=== PATIENT | male | born 1960 | race Caucasian/White ===

== ENCOUNTER 2018-01-02 11:09 | Outpatient (RCR) | payer MEDICARE, MEDICAID, SELFPAY | END 2018-02-12 14:57 | disposition home or self-care (01) | LOC: PT 11:09 | PROVIDERS: Visit Provider Internal Medicine | DX: Z95.5 Presence of coronary angioplasty implant and graft (principal) | CPT/HCPCS: 93798 ==

== ENCOUNTER → 2018-01-03 11:04 | Outpatient (CLI) | payer MEDICARE, MEDICAID, SELFPAY ==
--- NOTE | 2018-01-03 11:11 | CT_ITS ---
CT angio chest HISTORY: Right anterior chest pain, pain on inspiration, dyspnea, cough, smoker ITS.REASON: dyspnea, cough, chest pain ORDERING PHYSICIAN: SAVAGE Grullon PATIENT AGE: 58 years TECHNIQUE: Axial images obtained following the administration of 75 mL of Isovue 370 . Sagittal, and coronal reformatted images are also generated and reviewed. All CT scans at the facility use one or more dose reduction, viz: automated exposure control; ma/kV adjustment per patient size (including targeted exams where dose is matched to indication; i.e. head); or iterative reconstruction technique. COMPARISON: 12/25/2017 FINDINGS: No mediastinal or hilar mass or adenopathy is evident. Coronary artery calcifications and/or stents are noted. There is no evidence of aortic aneurysm or dissection. There is mild tortuosity of the descending thoracic aorta. No evidence of pulmonary embolus. There are centrilobular emphysematous changes. There is a 5 mm noncalcified nodule in the right upper lobe anteriorly in the subpleural region. A calcified granulomas present in the right lower lobe. No effusions or infiltrates. No acute bony anomalies. Upper abdominal images are unremarkable. IMPRESSION: 1. Coronary artery calcifications consistent with coronary artery disease. 2. Centrilobular emphysema. 3. 5 mm noncalcified pulmonary nodule right upper lobe. Consider 6 month follow-up to confirm stability in this patient with history of smoking and with centrilobular emphysema
[2018-01-03 12:06] LABS: Anion Gap 11.6 mEq/L (5-15); Blood Urea Nitrogen 17 mg/dL (7-18); Carbon Dioxide 30 mmol/L (21.0-32.0); Chloride 108 mmol/L (98-107); Creatinine,Serum 0.94 mg/dL (0.70-1.30); Estimated Glomerular Filt Rate 82 ml/min (>60); GFR (African American) 99 ML/MIN (>60); Glucose 96 mg/dL (74-106); Potassium 4.6 mmoL/L (3.5-5.1); Sodium 145 mmol/L (136-145)
== END ==
PROVIDERS: Visit Provider Physician Assistant
DX: I25.10 Atherosclerotic heart disease of native coronary artery without angina pectoris (principal); R05 Cough; R06.00 Dyspnea, unspecified; R07.9 Chest pain, unspecified
CPT/HCPCS: 36415; 71275; 80048; Q9967

== ENCOUNTER → 2018-11-13 07:52 | Outpatient (CLI) | payer MEDICARE, MEDICAID, SELFPAY ==
--- NOTE | 2018-11-13 07:56 | CA_ITS ---
PROCEDURE: 2-D M-mode and color Doppler study INDICATIONS FOR THE TEST: Chest pain COPD+ Heart Murmur Tobacco Smoking+ Palpitations Fatigue Syncope Edema Hypertension+Diabetes Mellitus Rheumatic Fever SOB [place]+Obesity Hyperlipidemia+ Family History HD Additional History 65% EF on cath 12/26/17 PATIENT INFORMATION HEIGHT: 67 WEIGHT: 198 GENDER: Male B/P: 138/66 2-D/M-MODE INTERPRETATION: 2-D MEASUREMENTS OBSERVED VALUES IN CMS Right Ventricular Dimension (RVDd) 2.6 Interventricular Septum (Thickness)(IVsd) 1.1 Left Ventricular Internal Dimensions(LVIDd) 5.0 Left Ventricular Posterior Wall (Thickness)(LVPWd) 1.0 Aortic Root 2.9 Aortic Cusp Separation 2.1 Left Atrial Dimensions (LAD) 3.7 2D 1. The EKG is mildly enlarged, left ventricle is normal size, mild concentric left ventricular hypertrophy, visually estimated ejection fraction of 55% with no regional wall motion abnormality. 2. The right atrium and right ventricle are mildly enlarged with normal contractility. 3. The aortic valve is minimally thickened and fibrosed. 4. The mitral and tricuspid valvular grossly normal. 5. The pulmonic valve is poorly visualized. 6. No significant pericardial effusion noted. DOPPLER INTERROGATION: Doppler interrogation of the aortic, mitral and tricuspid valvular presence of mild mitral and tricuspid regurgitation, tricuspid regurgitation jet velocity is inadequate for calculation of the right ventricular systolic pressure, grade 1 diastolic dysfunction seen without tissue Doppler evidence of raised left atrial pressure. CONCLUSION: 1. Mildly enlarged left atrium, normal left ventricular size, mild concentric left ventricular hypertrophy, visually estimated ejection fraction of 55% with no regional wall motion abnormality, grade 1 diastolic dysfunction seen without tissue Doppler evidence of raised left atrial pressure. 2. Mildly enlarged right ventricle with normal contractility. 3. Mild mitral and tricuspid regurgitation 4. No significant pericardial effusion noted.
--- NOTE | 2018-11-13 08:01 | NM_ITS ---
NM narcisa perf SPECT rest str History and Indications: Procedure: Electrocardiogram: Cardiac stress and resting SPECT images: Conclusion: 1. CARDIOLITE SPECT MYOCARDIAL PERFUSION SCAN, REST AND STRESS: EXERCISE STRESS [facility] REVIEW QGS EF AND WALL MOTION EVALUATION: QPS - PERFUSION EVALUATION HISTORY: CHEST PAIN DOSE: 10.38 mCi technetium 99m mibi intravenously at rest followed by 31.8 mCi technetium 99m mibi following the intravenous ministration of 0.4 mg of Lexiscan. Resting blood pressure is 153/84. Stress blood pressure 194/98. FINDINGS: Ejection fraction is calculated to be 51% Stress images reveal decreased activity in the inferior apical and septal go while rest images reveal worsening activity in the inferior apical wall as well as worsening activity in the septum. Gated images calculated ejection fraction of 51%. Gated images calculated ejection fraction of 51% with normal wall motion IMPRESSION: Previous nontransmural myocardial infarction involving the inferior apical and septal go with reverse redistribution. There is a large amount of myocardium in jeopardy therefore this is a high risk abnormal Myoview accompanied by normal ejection fraction and normal wall motion
--- NOTE | 2018-11-13 13:24 | HMH.ITSHM ---
Current Home Medications as stated by this patient Lukasz Ray or service representative. []amlodpine asa bisoprolol
== END ==
PROVIDERS: PCP Family Medicine; Visit Provider Urology
DX: F17.200 Nicotine dependence, unspecified, uncomplicated; I10 Essential (primary) hypertension; I25.118 Atherosclerotic heart disease of native coronary artery with other forms of angina pectoris; J44.9 Chronic obstructive pulmonary disease, unspecified; R00.1 Bradycardia, unspecified; R06.02 Shortness of breath; Z01.818 Encounter for other preprocedural examination; E78.49 Other hyperlipidemia
CPT/HCPCS: 78452; 93017; 93306; A9502; J2785

== ENCOUNTER → 2019-12-11 12:09 | Outpatient (CLI) | payer MEDICARE, SELFPAY ==
--- NOTE | 2019-12-11 12:20 | MR_ITS ---
PROCEDURE: MR LUMBAR SPINE WO CON CLINICAL INDICATION: LOW BACK PAIN Low back pain, left leg pain and numbness COMPARISON: ESTIMATING MANAGER/O MRI-L-SPINE W/O from 01/07/2013 TECHNIQUE: Standard multiplanar multiecho sequences are performed without contrast. 3-D MIP and myelographic images are also rendered and reviewed FINDINGS: There is normal alignment. The spinal cord ends at the T12-L1 level. T11-T12: Mild degenerative disc disease. L1-L2: Mild degenerative disc disease. L2-L3: There is mild chronic wedging of L3 with mild loss of height anteriorly and mild kyphosis at that level. There is degenerative disc disease with bulging disc along with facet ligamentum hypertrophy with bilateral lateral recess and foraminal narrowing which appears similar when compared to the previous exam. There is minimal retrolisthesis of L2 of 3 mm. There is minimal central disc protrusion L3-L4: Degenerative disc disease with bulging disc and 2 mm retrolisthesis of L3. There is small broad-based right paracentral and foraminal and lateral disc protrusion with resultant right-sided lateral recess and foraminal narrowing. This has developed since the previous exam. There is 3 mm retrolisthesis of L4 L4-5: Bulging disc with 3 mm retrolisthesis of L4 with facet and ligamentum hypertrophy with moderate right and moderate to severe left-sided foraminal narrowing. These findings have slightly progressed from the previous exam. Previously noted disc herniation at L4-5 no longer apparent. Partial laminectomy suspected at L4-5 on the left. L5-S1: Degenerative disc disease with bulging disc with facet and ligamentum hypertrophy with moderate to severe bilateral foraminal narrowing. The foraminal narrowing appears somewhat worse than when compared to the previous exam. There is 3 mm retrolisthesis of L5. The spinal cord ends at the T12-L1 level. However, in the lower aspect of the spinal canal there appears to be some clumping of the nerve roots which may be seen with arachnoiditis. This is not significantly changed from the previous exam. IMPRESSION: 1. L2-L3: There is mild chronic wedging of L3 with mild loss of height anteriorly and mild kyphosis at that level. There is degenerative disc disease with bulging disc along with facet ligamentum hypertrophy with bilateral lateral recess and foraminal narrowing which appears similar when compared to the previous exam. There is minimal retrolisthesis of L2 of 3 mm. There is minimal central disc protrusion. 2. L3-L4: Degenerative disc disease with bulging disc and 2 mm retrolisthesis of L3. There is small broad-based right paracentral and foraminal and lateral disc protrusion with resultant right-sided lateral recess and foraminal narrowing. This has developed since the previous exam. There is 3 mm retrolisthesis of L4 3. L4-5: Bulging disc with 3 mm retrolisthesis of L4 with facet and ligamentum hypertrophy with moderate right and moderate to severe left-sided foraminal narrowing. These findings have slightly progressed from the previous exam. Previously noted disc herniation at L4-5 no longer apparent. Partial laminectomy suspected at L4-5 on the left. 4. L5-S1: Degenerative disc disease with bulging disc with facet and ligamentum hypertrophy with moderate to severe bilateral foraminal narrowing. The foraminal narrowing appears somewhat worse than when compared to the previous exam. There is 3 mm retrolisthesis of L5. 5. There is clumping of the nerve roots noted in the lower lumbar spine which does not appear significantly changed. Arachnoiditis is a consideration. 6. No evidence of extruded herniated disc or canal stenosis Dictated by: Bhavesh Serrato MD 12/12/2019 16:41 Electronically signed by Bhavesh Serrato MD in [place]
== END ==
PROVIDERS: PCP Family Medicine; Visit Provider Orthopaedic Surgery
DX: M54.5 Low back pain (principal)
CPT/HCPCS: 72148; 76376

== ENCOUNTER → 2019-12-16 10:19 | Outpatient (CLI) | payer MEDICARE, SELFPAY ==
--- NOTE | 2019-12-16 | US_ITS ---
APPROVED REPORT Exam Type: Ankle to Brachial Index Stave Machine Tender: Digna Lynn RT(R) Indications Claudication: Bilaterally Rest Pain: Bilaterally Numbness/Tingling Cold Sensitivity Current Smoker CAD 1 cardiac stent, patient states he can't walk much without stopping multiple times. Left foot is worse than right per patient. At the beginning of the exam both feet were normal in color and temperature. At long term point of exam the left foot was drastically colder. Risk Factors CAD TIA/CVA History Diabetes Current Smoker Pressures/Indices Right Indices Left Indices Brachial 134.00 mmHg Brachial 133.00 mmHg Low Thigh 134.00 mmHg 1.00 Low Thigh 119.00 mmHg 0.89 Calf 144.00 mmHg 1.07 Calf 105.00 mmHg 0.78 Ankle(PT) 129.00 mmHg 0.96 Ankle(PT) 125.00 mmHg 0.93 Ankle(DP) 127.00 mmHg 0.95 Ankle(DP) 97.00 mmHg 0.72 Digit 86.00 mmHg 0.64 Digit 71.00 mmHg 0.53 Findings RT SUMMER=1.0 LT SUMMER=0.9 RT TBI=0.6 LT TBI=0.5 Normal waveforms Diminished pulses on the left Conclusion Normal right SUMMER Acceptable left SUMMER Normal waveforms Diminished pulses on the left Electronically signed by : Bhavesh Serrato MD 12/16/2019 16:19:05
== END ==
PROVIDERS: PCP Family Medicine; Visit Provider Orthopaedic Surgery
DX: I73.9 Peripheral vascular disease, unspecified (principal)
CPT/HCPCS: 93923

== ENCOUNTER → 2019-12-30 13:30 | Outpatient (POV) | payer MEDICARE, SELFPAY | LOC: SC 13:35 | PROVIDERS: PCP Family Medicine; Visit Provider Specialist | DX: M79.605 Pain in left leg (principal); M79.604 Pain in right leg | CPT/HCPCS: 95886; 95909 ==

== ENCOUNTER 2020-01-13 09:02 | Day surgery (SDC) | payer MEDICARE, SELFPAY ==
[2020-01-13] VITALS (11 sets, daily range): BP systolic 98–151; BP diastolic 51–84; PULSE 39–50; RESP 16–18; TEMP 36.8; O2SAT 94–100; BMI 30.5
--- NOTE | 2020-01-13 | IR_ITS ---
APPROVED REPORT Patient Location: Outpatient PROCEDURES Catheter placement in the right common iliac artery Right common iliac artery antegrade angiogram with unilateral runoff to the right foot Catheter placement in the left common iliac artery Left common iliac artery antegrade angiogram with unilateral runoff to the left foot Catheter placement of the distal abdominal aorta Distal abdominal aortogram INDICATION [facility] class III claudication, Abnormal SUMMER Informed consent was obtained prior to the procedure. COMPLICATIONS NONE Estimated Blood Loss: LESS THAN 10 ML TECHNIQUE 1% lidocaine used to anesthetize the right anterior aspect of the right wrist. The right radial artery was accessed via the central technique and an arterial cocktail using 5000U heparin, 2.5 mg verapamil, 1mg lidocaine and 800mcg nitroglycerin into the right radial sheath intra-arterially. A PV multi curve catheter was then placed into the left common iliac artery via the right radial sheath and iliofemoral angiography was performed with unilateral runoff to the foot. Excellent angiographic results were obtained. At the end of the procedure the apparatus was removed the sheath was removed good hemostasis was achieved using TR banding patient was transferred to the postop holding area in stable condition. ANGIOGRAPHIC RESULTS The distal abdominal aorta is normal The bilateral common internal and external iliac arteries are normal The bilateral common femoral arteries are normal The bilateral profunda femoris arteries are normal The right superficial femoral artery and popliteal artery have mild [id number] atheromatous plaque with three-vessel runoff below the knee into the foot The left superficial femoral artery has a focal 80 to 90% stenosis in Cory's canal between the left SFA and left popliteal artery. There is mild atheromatous plaque distal to the stenosis which is [id number]. There is good two-vessel runoff below the knee on the left side IMPRESSION Moderate to severe focal stenosis involving the left SFA/popliteal artery. Bilateral leg symptoms are not explained angiographically. PLAN 1. At this point I recommend medical management for the left SFA lesion. Patient appears to be having bilateral symptoms most likely stemming from myalgias from atorvastatin or possibly restless leg syndrome. Atorvastatin will be discontinued and Requip 2 mg nightly will be started for restless leg syndrome 2. Medical management for the left SFA lesion. Should patient develop recalcitrant claudication in the future this would be an easy drug-coated balloon procedure in order to improve circulation. Again at this point, it appears patient symptoms are nonvascular based on the bilateral symptoms Electronically signed by : Hugo Still, 01/13/2020 12:07:06
[2020-01-13 09:48] LABS: Basophils % 0.3 % (0.1-2.0); Eosinophils # 0.1 K/mm3 (0.0-0.4); Eosinophils % 1.5 % (0.1-12.0); Hematocrit 40.9 % (42.0-52.0); Lymphocytes # 2.8 K/mm3 (0.7-4.5); Mean Corpuscular HGB Conc 31.7 g/dL (31.8-35.4); Mean Corpuscular Hemoglobin 26.4 pg (27.0-31.2); Mean Corpuscular Volume 83.3 fl (80-94); Mean Platelet Volume 7.3 fl (7.4-10.4); Monocytes # 0.4 K/mm3 (0.1-1.0); Monocytes % 5.3 % (1.7-9.3); Platelet Count 236 K/mm3 (142-424); Red Blood Count 4.91 M/mm3 (4.60-6.20); Red Cell Distribution Width 15.4 % (11.5-17.5); White Blood Count 7.3 K/mm3 (4.8-10.8)
[2020-01-13 09:58] LABS: Anion Gap 6.3 mEq/L (5-15); Blood Urea Nitrogen 20 mg/dl (9-20); Calcium 9.2 mg/dl (8.4-10.2); Carbon Dioxide 27 mmol/L (22.0-30.0); Chloride 107 mmol/L (98-107); Creatinine Clearance Estimated 96 mL/min (50-200); Estimated Glomerular Filt Rate 86 ml/min (>60); GFR (African American) 103 ML/MIN (>60); Glucose 109 mg/dl (74-100); Potassium 4.3 mmoL/L (3.5-5.1); Sodium 136 mmol/L (136-145)
== END 2020-01-13 14:07 | disposition home or self-care (01) ==
LOC: CATHLAB 09:04
PROVIDERS: PCP Family Medicine; Visit Provider Internal Medicine
DX: I70.223 Atherosclerosis of native arteries of extremities with rest pain, bilateral legs (principal); I25.118 Atherosclerotic heart disease of native coronary artery with other forms of angina pectoris; Z79.02 Long term (current) use of antithrombotics/antiplatelets; Z79.82 Long term (current) use of aspirin; Z72.0 Tobacco use; J44.9 Chronic obstructive pulmonary disease, unspecified; I10 Essential (primary) hypertension; Z79.899 Other long term (current) drug therapy; I77.1 Stricture of artery
CPT/HCPCS: 36247; 75716; 80048; 85025; 99152; C1725; C1769; J1644; Q9966

== ENCOUNTER 2020-01-24 08:00 | Day surgery (SDC) | payer MEDICARE, SELFPAY ==
[2020-01-24] VITALS (11 sets, daily range): BP systolic 108–164; BP diastolic 66–90; PULSE 54–66; RESP 12–20; TEMP 36.6; O2SAT 93–98; BMI 29.7
--- NOTE | 2020-01-24 | IR_ITS ---
APPROVED REPORT Patient Location: Outpatient PROCEDURES Catheter placement in the left superficial femoral artery Left superficial femoral artery antegrade angiogram Bare-metal stent deployment to the left superficial femoral artery INDICATION Ghassan class III claudication, Left superficial femoral artery atherosclerosis, Abnormal SUMMER Informed consent was obtained prior to the procedure. COMPLICATIONS NONE Estimated Blood Loss: LESS THAN 10 ML TECHNIQUE 1% lidocaine used anesthetize the right groin the right femoral artery was accessed via the Salinger technique and a 6 Persian sheath was placed in the right femoral artery. Therapeutic heparin was administered giving a therapeutic ACT. A rim catheter was advanced to the distal abdominal aorta and used to cannulate the left common iliac artery. A wire was used to advance the catheter into the left superficial femoral artery where angiography was performed. And a long advantage wire was used to traverse the stenosis of the left superficial femoral artery and a 7 mm x 20 mm self-expanding stent was deployed in the left SFA. A 6 mm x 20 mm balloon was used to post dilate the stenosis at 12 suad. Excellent angiographic results were obtained. At the end of the procedure the apparatus was removed the groin was reprepped gloves were changed sheath was removed good hemostasis was achieved using Perclose device patient was transferred to the postop holding in stable condition ANGIOGRAPHIC RESULTS Left superficial femoral artery has a focal 90% stenosis IMPRESSION Successful percutaneous revascularization of left superficial femoral artery severe stenosis reduced to 0% with one bare-metal self-expanding stent PLAN 1. Aspirin and Plavix for 1 month followed by Xarelto 2.5 twice daily plus aspirin 81 mg daily 2. Physical therapy 3. LDL less than 55 4. Aggressive risk factor modification Electronically signed by : Hugo Still, 01/24/2020 10:43:39
[2020-01-24 08:56] LABS: Basophils # 0.1 K/mm3 (0-0.2); Basophils % 0.6 % (0.1-2.0); Eosinophils # 0.1 K/mm3 (0.0-0.4); Eosinophils % 0.9 % (0.1-12.0); Hematocrit 44.9 % (42.0-52.0); Hemoglobin 14.2 g/dL (14.1-18.0); Lymphocytes # 3.1 K/mm3 (0.7-4.5); Mean Corpuscular HGB Conc 31.6 g/dL (31.8-35.4); Mean Corpuscular Volume 85.6 fl (80-94); Mean Platelet Volume 6.8 fl (7.4-10.4); Monocytes # 0.4 K/mm3 (0.1-1.0); Monocytes % 4.4 % (1.7-9.3); Neutrophils % 58.1 % (37.0-80.0); Platelet Count 229 K/mm3 (142-424); Red Blood Count 5.24 M/mm3 (4.60-6.20); White Blood Count 8.6 K/mm3 (4.8-10.8)
[2020-01-24 09:06] LABS: Anion Gap 9.4 mEq/L (5-15); Blood Urea Nitrogen 17 mg/dl (9-20); Calcium 9.4 mg/dl (8.4-10.2); Carbon Dioxide 29 mmol/L (22.0-30.0); Chloride 103 mmol/L (98-107); Creatinine Clearance Estimated 93 mL/min (50-200); Estimated Glomerular Filt Rate 86 ml/min (>60); GFR (African American) 103 ML/MIN (>60); Glucose 97 mg/dl (74-100); Potassium 4.4 mmoL/L (3.5-5.1); Sodium 137 mmol/L (136-145)
[2020-01-24 13:33] LABS: CATHL Activated Clotting Time 270 SEC (74-125)
== END 2020-01-24 13:37 | disposition home or self-care (01) ==
LOC: CATHLAB 08:01
PROVIDERS: PCP Family Medicine; Visit Provider Internal Medicine
DX: I70.222 Atherosclerosis of native arteries of extremities with rest pain, left leg (principal); I25.10 Atherosclerotic heart disease of native coronary artery without angina pectoris; I10 Essential (primary) hypertension; Z72.0 Tobacco use; Z79.899 Other long term (current) drug therapy
CPT/HCPCS: 37226; 80048; 85025; 85347; 99152; C1725; C1760; C1766; C1769; C1876; J1644; Q9966

== ENCOUNTER → 2020-01-27 10:51 | Outpatient (CLI) | payer MEDICARE, SELFPAY ==
[2020-01-27 11:07] LABS: Basophils # 0.1 K/mm3 (0-0.2); Basophils % 0.7 % (0.1-2.0); Eosinophils # 0.1 K/mm3 (0.0-0.4); Eosinophils % 1.1 % (0.1-12.0); Hematocrit 42.8 % (42.0-52.0); Hemoglobin 13.9 g/dL (14.1-18.0); Lymphocytes # 3.2 K/mm3 (0.7-4.5); Lymphocytes % 32.1 % (10-50); Mean Corpuscular HGB Conc 32.4 g/dL (31.8-35.4); Mean Corpuscular Hemoglobin 27.9 pg (27.0-31.2); Monocytes # 0.4 K/mm3 (0.1-1.0); Monocytes % 4.1 % (1.7-9.3); Neutrophils # 6.1 K/mm3 (1.8-7.8); Platelet Count 229 K/mm3 (142-424); Red Blood Count 4.98 M/mm3 (4.60-6.20); Red Cell Distribution Width 14.9 % (11.5-17.5); White Blood Count 9.9 K/mm3 (4.8-10.8)
[2020-01-27 11:18] LABS: Anion Gap 9.2 mEq/L (5-15); Blood Urea Nitrogen 18 mg/dl (9-20); Calcium 9.5 mg/dl (8.4-10.2); Carbon Dioxide 29 mmol/L (22.0-30.0); Chloride 103 mmol/L (98-107); Estimated Glomerular Filt Rate 68 ml/min (>60); GFR (African American) 82 ML/MIN (>60); Glucose 128 mg/dl (74-100); Potassium 4.2 mmoL/L (3.5-5.1); Sodium 137 mmol/L (136-145)
== END ==
PROVIDERS: Visit Provider Internal Medicine
DX: Z95.5 Presence of coronary angioplasty implant and graft (principal); I25.10 Atherosclerotic heart disease of native coronary artery without angina pectoris
CPT/HCPCS: 36415; 80048; 85025

== ENCOUNTER → 2021-07-12 14:30 | Outpatient (CLI) | payer MEDICARE, SELFPAY | PROVIDERS: Visit Provider Nurse Practitioner | DX: Z20.822 Contact with and (suspected) exposure to COVID-19 (principal) | CPT/HCPCS: C9803; U0003; U0005 ==

== ENCOUNTER → 2021-10-14 10:16 | Outpatient (CLI) | payer MEDICARE, SELFPAY ==
--- NOTE | 2021-10-14 10:57 | XR_ITS ---
FINAL REPORT CLINICAL HISTORY: typical angina smoker COMPARISON: 12/25/2017 FINDINGS: Two views of the chest were obtained. The heart size and pulmonary vascularity are within normal limits. The mediastinum is normal. No acute pulmonary abnormality is identified. There is no pneumothorax. The bony thorax is intact. IMPRESSION: No active cardiopulmonary disease. Reviewed, Interpreted and Dictated by Chaim Powers III, MD Transcribed by Saadia Gutierrez Authenticated by Chaim Powers III, MD on 10/14/2021 12:15:22 PM [facility]
[2021-10-14 11:29] LABS: Basophils # 0.1 K/mm3 (0-0.2); Basophils % 0.7 % (0.1-2.0); Eosinophils # 0.1 K/mm3 (0.0-0.4); Eosinophils % 1.4 % (0.1-12.0); Hematocrit 44.1 % (42.0-52.0); Hemoglobin 13.8 g/dL (14.1-18.0); Lymphocytes # 2.5 K/mm3 (0.7-4.5); Lymphocytes % 34.8 % (10-50); Mean Corpuscular HGB Conc 31.3 g/dL (31.8-35.4); Mean Corpuscular Hemoglobin 27.1 pg (27.0-31.2); Mean Corpuscular Volume 86.6 fl (80-94); Mean Platelet Volume 6.9 fl (7.4-10.4); Monocytes # 0.4 K/mm3 (0.1-1.0); Monocytes % 5.5 % (1.7-9.3); Neutrophils # 4.1 K/mm3 (1.8-7.8); Neutrophils % 57.6 % (37.0-80.0); Platelet Count 215 K/mm3 (142-424); Red Blood Count 5.09 M/mm3 (4.60-6.20); Red Cell Distribution Width 14.8 % (11.5-17.5); White Blood Count 7.1 K/mm3 (4.8-10.8)
[2021-10-14 11:55] LABS: Chloride 104 mmol/L (98-107); Sodium 136 mmol/L (136-145)
[2021-10-14 11:56] LABS: Potassium 4.6 mmoL/L (3.5-5.1)
[2021-10-14 11:58] LABS: Alanine Aminotransferase 29 U/L (12-78); Albumin Level 4.3 g/dl (3.5-5.0); Alkaline Phosphatase 62 U/L (38-126); Anion Gap 7.6 mEq/L (5-15); Aspartate Amino Transferase 41 U/L (17-59); Bilirubin,Direct 0.3 mg/dl (0.0-0.4); Bilirubin,Indirect 0.1 mg/dL (0.0-0.9); Bilirubin,Total 0.4 mg/dl (0.2-1.3); Bilirubin,Unconjugated 0.1 mg/dL (0.0-1.1); Blood Urea Nitrogen 25 mg/dl (9-20); Carbon Dioxide 29 mmol/L (22.0-30.0); Cholesterol 149 mg/dl (140-200); Estimated Glomerular Filt Rate 85 ml/min (>60); GFR (African American) 103 ML/MIN (>60); Total Protein,Serum 6.7 g/dl (6.3-8.2); Triglycerides 99 mg/dl (30-150); VLDL Cholesterol 20 mg/dL (0-40)
[2021-10-14 11:59] LABS: Calcium 8.5 mg/dl (8.4-10.2); Chol/HDL Ratio 3.8 (1-3.5); Glucose 99 mg/dl (74-100); HDL Cholesterol 39 mg/dl (40-60)
[2021-10-14 12:10] LABS: Direct LDL Cholesterol 79.47 mg/dL (100-129)
[2021-10-14 12:15] LABS: Free T4 (Free Thyroxine) 1.31 ng/dl (0.78-2.19)
[2021-10-14 12:29] LABS: Thyroid Stimulating Hormone 3.25 uIU/mL (0.465-4.68)
== END ==
PROVIDERS: PCP Plastic Surgery; Visit Provider Physician Assistant
DX: E78.2 Mixed hyperlipidemia (principal); F17.200 Nicotine dependence, unspecified, uncomplicated; I11.9 Hypertensive heart disease without heart failure; I20.9 Angina pectoris, unspecified; I73.9 Peripheral vascular disease, unspecified; R68.89 Other general symptoms and signs
CPT/HCPCS: 36415; 71046; 80048; 80061; 80076; 84439; 84443; 85025

== ENCOUNTER → 2023-02-06 08:15 | Outpatient (CLI) | payer MEDICARE, SELFPAY ==
--- NOTE | 2023-02-06 08:22 | CT_ITS ---
FINAL REPORT CLINICAL HISTORY: H/O TOBACCO USE CURRENT SMOKER 1.5PPD X50 YEARS COMPARISON: None FINDINGS: CT CHEST LOW DOSE SCREENING HISTORY: Screening exam for lung cancer. Current smoker, 75 pack year smoking history DOSE: CTDIvol: 2.9 mGy, DLP: 100.29 mGy*cm COMPARISON: None . TECHNIQUE: Axial CT without IV contrast administration using low dose protocol FINDINGS: Mild emphysema and mild scarring are present. There are small nonspecific mediastinal lymph nodes present as well as several borderline size axillary nodes present. No evidence of significant adenopathy is seen. There is a calcified granuloma present in the right lower lobe. There is a 4 mm nodule seen on axial image number 20 and the right upper lobe, nonspecific. No pleural or pericardial effusion is seen . . IMPRESSION: 4 mm nodule seen in the right upper lobe, nonspecific. LUNG RADS CATEGORY 2. Recommend 12 month follow-up exam RECOMMENDATION: 12 month LDCT follow up Reviewed, Interpreted and Dictated by Chaim Powers III, MD Transcribed by Amber Blackwood Authenticated and . [facility]
== END ==
PROVIDERS: PCP Family Medicine; Visit Provider Family Medicine
DX: Z87.891 Personal history of nicotine dependence (principal); Z12.2 Encounter for screening for malignant neoplasm of respiratory organs; R91.1 Solitary pulmonary nodule
CPT/HCPCS: 71271

== ENCOUNTER 2023-07-03 12:50 | Emergency (ER) | payer MEDICARE, SELFPAY ==
[2023-07-03 12:50] VITALS: BP 150/71; PULSE 86; RESP 18; TEMP 36.8; O2SAT 96; BMI 28.1
--- NOTE | 2023-07-03 13:22 | PC.NURSE ---
DR FRANCO AT BEDSIDE
--- NOTE | 2023-07-03 13:28 | XR_ITS ---
FINAL REPORT CLINICAL HISTORY: pain when standing up, calf tender FINDINGS: AP and lateral views of the right tibia and fibula were obtained. There is no prior exam for comparison. There is no acute fracture of the left tibia or fibula. The knee and ankle appear intact. The soft tissues are normal. IMPRESSION: No acute osseous abnormality of the left tibia or fibula. Reviewed, Interpreted and Dictated by Samreen Daiman MD Transcribed by Fauzia Montesinos Authenticated and [facility]
--- NOTE | 2023-07-03 13:31 | HMH.EDGENADL ---
Discharge Plan Disposition Patient Disposition: Home, Self-Care Chief Complaint: Extremity Problem,Nontraumatic Prescriptions Prescriptions: No Action clopidogrel [Plavix] 75 mg tablet 75 mg PO DAILY Qty: 30 5RF amlodipine [Norvasc] 10 mg tablet 10 mg PO DAILY Qty: 90 3RF aspirin [Adult Low Dose Aspirin] 81 mg tablet,delayed release (DR/EC) 81 mg PO DAILY bisoprolol fumarate 5 mg tablet 10 mg PO DAILY buprenorphine-naloxone 1 EACH film 1 each SL DAILY Referrals Follow up/Referrals: David Pruett [Primary Care Provider] - See instructions Activity Restrictions/Add. Instructions Additional Instructions/Restrictions: At this time it was felt you are safe to be discharged home. If new or worsening symptoms please do not hesitate to return the emergency department. Please follow-up with Dr. Guerrero this at 3 PM. Clinical Impressions Clinical Impression: Calf pain Discharge ED Provider: Rios Camargo General Adult HPI General Chief complaint: Extremity Problem,Nontraumatic Stated complaint: pain in Rt leg, no accident Time Seen by Provider: 07/03/23 13:00 Mode of Arrival: Wheelchair Source of Information: Patient Limitations: No Limitations Description of Symptoms (Recalled from ER Triage Doc. by RN): PT REPORTS PAIN TO RIGHT CALF, WAS GOING FROM SQUATTING TO STANDING POSITION AND FELT A TEARING REPORTS CALF FEELS TIGHT, NO REDNESS OR SWELLING. History of Present Illness HPI narrative: Patient is 63-year-old male with no pertinent past medical history presents emergency department for evaluation of posterior calf pain. Onset was acute, standing from a kneeling position. Sudden stabbing pain over his posterior mid calf. No direct falls or impact. No other acute complaints at this time. Related Data Home Medications Medication Instructions Recorded Confirmed buprenorphine 8 mg-naloxone 2 mg 1 each SL DAILY drug treatment 12/25/17 10/14/21 sublingual film aspirin 81 mg tablet,delayed 81 mg PO DAILY 01/03/18 10/14/21 release (Adult Low Dose Aspirin) bisoprolol fumarate 5 mg tablet 10 mg PO DAILY 01/06/20 10/14/21 Previous Rx's Medication Instructions Recorded clopidogrel 75 mg tablet (Plavix) 75 mg PO DAILY #30 tabs 11/05/18 amlodipine 10 mg tablet (Norvasc) 10 mg PO DAILY #90 tabs 10/14/21 Allergies Allergy/AdvReac Type Severity Reaction Status Date / Time No Known Allergies Allergy Verified 01/28/20 11:27 [facility] Disclaimer: The information contained in this section may have been updated after the patient was seen, as this information can be updated by other users. Medical History (Updated 07/03/23 @ 14:36 by Rios Camargo MD) CAD (coronary artery disease) HHD (hypertensive heart disease) Social History Smoking Status: Current every day smoker tobacco type: cigarettes packs per day: 1 alcohol intake: never substance use type: denies use current occupational status: unemployed Travel in the last 8 weeks: None household members: none housing: house current occupational exposures/hazards: Yes caffeine: No ROS Obtained: Yes Systems reviewed as appropriate & no additional complaints except as documented Physical Exam General General appearance: alert and in no apparent distress Head Head exam: atraumatic and normocephalic Eye Eye exam: Present PERRL and EOMI ENT ENT exam: Present mucous membranes moist Neck Neck exam: Present normal inspection Chest Chest inspection: Present normal inspection and symmetric chest wall rise Respiratory Respiratory exam: Present normal lung sounds bilaterally; Absent respiratory distress Cardiovascular Cardiovascular exam: Present regular rate and normal rhythm Abdominal Exam Abdominal exam: Present soft; Absent tenderness Extremities Exam Extremities exam: Present other (Palpable dorsal pedal pulse on the right, no bony tenderness on the right lower extremity. Mild asymme
--- NOTE | 2023-07-03 13:33 | PC.NURSE ---
ORTHO APPT 07/06/2023 AT 3:00
[2023-07-03 15:05] VITALS: BP 148/70; PULSE 85; RESP 20; TEMP 36.8; O2SAT 98
== END 2023-07-03 15:08 | disposition home or self-care (01) ==
PROVIDERS: Emergency Provider Emergency Medicine; PCP Family Medicine
DX: M79.661 Pain in right lower leg (principal); F17.210 Nicotine dependence, cigarettes, uncomplicated; I25.10 Atherosclerotic heart disease of native coronary artery without angina pectoris; I11.9 Hypertensive heart disease without heart failure
CPT/HCPCS: 73590; 99283

== ENCOUNTER 2024-04-22 06:35 | Outpatient (CLI) | payer MEDICARE, MEDICAID, SELFPAY ==
--- NOTE | 2024-04-22 | CA_ITS ---
APPROVED REPORT Exam: Exercise Treadmill Technologist: Linda Mccarthy Ht: 5 ft 7 in Wt: 198 lbs BSA: 2.01 m2 HR: 56 bpm BP: 126/68 mmHg Indications: CAD, Angina Pectoris Medical History Medications: Amlodipine,,,,, Aspirin,,,,, SyMBICORT,,,,, CloPIdogrel,,,,, Suboxone,,,,, BisOPROLOL,,,,, Ventolin,,,,, Stress Test Details Test: Butch HR Resting HR: 58 bpm Max Heart Rate (APMHR): 154 bpm Max HR Achieved: 100 bpm Target HR (85% APMHR): 131 bpm % of APMHR: 65 Recovery HR: 57 bpm HR response to stress: Blunted HR response to stress BP Resting BP: 126.0/68.0 mmHg Max BP: 184.0/82.0 mmHg Recovery BP: 151.0/73.0 mmHg BP response to stress: Normal blood pressure response to stress. ECG Resting ECG: Normal sinus rhythm Stress EC.[address] depression Arrhythmia: None Recovery ECG: Return to baseline within 3 minutes of recovery Recovery Arrhythmia: PVCs Clinical Exercise duration: 03:56 min Highest Stage Achieved: Exercise capacity: 7.0 METs Overall Exercise Capacity for Age: Average Stress ECG Conclusion This is a nondiagnostic treadmill stress test in the setting of inability to achieve target HR. Symptoms: Shortness of breath with exercise. Test stopped due to shortness of breath and leg fatigue. Left arm pain at peak exercise. Arrhythmias/Ectopy: PVC in recovery. ST-T Changes: <0.[address] depression Conclusion: Non diagnostic as he did not reach target heart rate. No evidence of ischemia at the level of HR achieved. In the setting of inability to achieve target HR, further evaluation with alternative ischemic evaluation (e.g. pharmacologic nuclear stress test) is recommended, if clinically feasible. Test Summary REST . . . . . . . Sitting REST . . . . . . . Standing REST 08:31 0.0 0.0 58 . 126/ 68 . . Stage 1 01:00 10.0 1.7 82 . . . . Stage 1 02:00 10.0 1.7 87 . . . . Stage 1 03:00 10.0 1.7 88 . 150/ 78 . . Stage 2 00:56 12.0 2.5 99 . . . Stop exercise at 03:56 RECOVERY 01:00 0.0 0.0 80 . 184/ 82 . . RECOVERY 02:00 0.0 0.0 68 . 184/ 82 . . RECOVERY 03:00 0.0 0.0 59 . 184/ 82 . . RECOVERY 04:00 0.0 0.0 62 . 160/ 67 . . RECOVERY 05:00 0.0 0.0 57 . 151/ 73 . . RECOVERY 05:14 0.0 0.0 61 . 151/ 73 . . Electronically signed by : Anya Garvey MD 04/29/2024 23:09:56
--- NOTE | 2024-04-22 06:50 | CT_ITS ---
FINAL REPORT TECHNIQUE: Thin section axial images were obtained from the lung apices to the upper abdomen by computed tomography. Reformatted images were obtained and reviewed. This study was performed with techniques to keep radiation doses al low as reasonably achievable (ALARA). Individualized dose reduction techniques using automated exposure control or adjustment of mA and/or kV according to the patient's size were employed. CLINICAL HISTORY: CAD/ANGINA PECTORIS/LUNG NODULE CURRENT SMOKER 1.5PPD X51 YEARS COMPARISON: 02/06/2023 FINDINGS: CHEST CT LOW DOSE 64-year-old male, current smoker, 73-ponb-dphm history CTDI vol (mGy): 2.9 DLP (mGy-cm): 100.29 There is no axillary adenopathy. There is no mediastinal or hilar mass or adenopathy. The heart is normal in size. Dense coronary artery calcifications are present. There is no pericardial or pleural effusion. Lung window images demonstrate the 4 mm nodule in the right upper lobe seen on the prior CT of January 2023 remains present and is stable in appearance. On today's exam this is best seen on image #22 of series 4.. Limited images of the upper abdomen are unremarkable. IMPRESSION: Lung-RADS category 2S, the S designation for dense coronary artery calcification. Recommend 12 month follow up low dose chest CT. Reviewed, Interpreted and Dictated by Jaxon Mane MD Transcribed by Amber Blackwood Authenticated and [facility]
== END 2024-04-22 23:59 | disposition home or self-care (01) ==
LOC: RAD 06:36
PROVIDERS: PCP Family Medicine; Visit Provider Family Medicine
DX: Z87.891 Personal history of nicotine dependence (principal); I25.119 Atherosclerotic heart disease of native coronary artery with unspecified angina pectoris; R07.9 Chest pain, unspecified; R06.09 Other forms of dyspnea
CPT/HCPCS: 71271; 93017; 93018

== ENCOUNTER 2024-11-01 07:34 | Outpatient (CLI) | payer MEDICARE, MEDICAID, SELFPAY ==
--- NOTE | 2024-11-01 | MR_ITS ---
FINAL REPORT TECHNIQUE: Multiplanar MR without contrast CLINICAL HISTORY: neck pain and stiffness that radiates to the shoulders FINDINGS: Limited images of the posterior fossa are unremarkable. Alignment is normal. Cervical spinal cord shows normal signal and contour. C2-3: Minimal annular disc bulge. C3-4: Moderate annular disc bulge with endplate hypertrophy. Moderate facet overgrowth. Moderate central canal stenosis. Severe left and moderate right neuroforaminal narrowing. C4-5: Mild annular disc bulge and facet arthropathy. Severe left and mild right neuroforaminal narrowing. C5-6: Mild annular disc bulge. Moderate bilateral neuroforaminal narrowing without central canal stenosis. C6-7: Annular disc bulge without canal stenosis. C7-T1: Unremarkable IMPRESSION: Moderate degenerative changes, most pronounced at C3-4 and C4-5. Reviewed, Interpreted and Dictated by Suman Jensen MD Transcribed by Saadia Gutierrez Authenticated and . [facility]
== END 2024-11-01 23:59 | disposition home or self-care (01) ==
LOC: RAD 07:35
PROVIDERS: PCP Family Medicine; Visit Provider Family Medicine
DX: M54.2 Cervicalgia (principal); M79.609 Pain in unspecified limb; R20.2 Paresthesia of skin
CPT/HCPCS: 72141

== ENCOUNTER 2025-03-03 08:18 | Outpatient (CLI) | payer MEDICARE, MEDICAID, SELFPAY ==
--- OUTSIDE RECORDS SUMMARY | 2025-01-13 13:35 | XMS_ITS | Continuity of Care Document ---
Author Organization [facility] Phone Care Team Providers Care Poolroom Table Attendant Name Role Phone KARL AGUILA Primary Care MELVA CHAWLA Primary Attending [phone] MELVA CHAWLA Surgeon MELVA CHAWLA Unavailable MELVA CHAWLA Admitting ALLERGIES AND ADVERSE REACTIONS ALLERGIES AND ADVERSE REACTIONS Code System Allergy Substance Adverse Reaction Date Reaction (Severity) Comment Status Reported By Updated By No Known Allergies [id number] on December 31, 2024 1:59:11 PM UT ASSESSMENTS Cervical spondylosis without myelopathy ; FAMILY HISTORY RELATION: Father Status: Cause of : Malignant neoplastic disease Age at : Unknown SNOMED-CT Diagnosis Age At Onset Information not available RELATION: Mother Status: LIVING SNOMED-CT Diagnosis Age At Onset Information not available PROBLEMS PATIENT PROBLEMS Code Description/Comments Category Status Upda tiffanie By [id number] Cervical spondylosis without myelopathy active [id number] on December 31 2:01:48 PM UT MEDICATIONS HOME MEDICATIONS Status RXNORM [facility] Medication Dose Route Frequency Dates Comments Reported By Updated By Active 0858605 29935 38361 8 Albuterol Sulfate HFA Inhalation Aerosol Solution 108 (90 Base) MCG/ACT 2.0 PUF INHALA TION RTBIDPRN Last Dose: [id number] on December 31, 2024 1:59:31 PM UT Active 730667 22242 08546 0 Atorvastatin Calcium Oral Tablet 40 MG 40.0 MG ORAL DAILY Last Dose: [id number] on December 31, 2024 1:59:34 PM UT Active 156500 90105 09465 1 bisoprolol (ZEBETA) 5.0 MG ORAL DAILY Last Dose: PHYSICI [id number] on December 31, 2024 1:59:37 PM UT Active 7892909 51164 84393 1 Buprenorphin e HCl-Naloxone HCl Sublingual Film 8-2 MG 1.5 FLS SUBLIN GUAL DAILY Last Dose: [id number] on December 31, 2024 1:59:41 PM [facility] Active 586052 99354 80168 0 buPROPion HCl ER (SR) Oral Tablet Extended Release 12 Hour 150 MG 150.0 MG ORAL DAILY Last Dose: [id number] on December 31, 2024 1:59:45 PM [facility] Active 718721 70734 82892 9 Cyclobenzapr ine HCl Oral Tablet 10 MG 10.0 MG ORAL PRN Last Dose: [id number] on December 31, 2024 1:59:47 PM UT Active 988080 20324 59116 0 diazePAM Oral Tablet 10 MG 10.0 MG ORAL PRN Last Dose: [id number] on December 31, 2024 1:59:50 PM UT Active 522711 86463 13513 1 HYDROcodone- Acetaminophe n Oral Tablet 5-325 MG 1.0 TAB ORAL PRN Last Dose: [id number] on December 31, 2024 2:00:05 PM [facility] Active 762568 02590 38764 1 Isosorbide Mononitrate ER Oral Tablet Extended Release 24 Hour 30 MG 30.0 MG ORAL DAILY Last Dose: [id number] on December 31, 2024 2:00:08 PM UT Active 358292 83761 78078 0 Naproxen Oral Tablet 250 MG 250.0 MG ORAL BID Last Dose: [id number] on December 31, 2024 2:00:11 PM [facility] Active 7747340 FreeT extMe d SYMBICORT 160-4.5 MCG/ACT AERO 2.0 PUF INHALA TION BID Last Dose: PHYSICI [id number] on December 31, 2024 2:00:17 PM UT Active 430555 58118 15766 2 Valsartan Oral Tablet 320 MG 320.0 MG ORAL DAILY Last Dose: [id number] on December 31, 2024 2:00:19 PM UT Active 8234635 86055 14406 1 Eliquis Oral Tablet 5 MG 5.0 MG ORAL BID Last Dose: [id number] on December 31, 2024 2:01:21 PM [facility] DISCHARGE MEDICATIONS Status RXNORM NDC Medication Dose Route Frequency Dates Comments Physician Updated By No Discharge Medication Info rmation Available INPATIENT MEDICATIONS Status RXNORM [facility] Medication Dose Route Frequency Rat e Quantity Dates Comments Physician Updated By Discont inued 1225631 2876 9427 902 lidocaine (XYLOCAINE) 1% MPF SOLN 30.0 ML ONE TIME ONLY (SCHEDULED DOSE) Start: January 07, 2025 2:13:0 0 PM UTC End: January 07, 2025 2:13:0 0 PM [facility] MUNISWAMY MELVA K INTERFAC ED on January 07, 2025 2:12:00 PM UT Discont inued 0027 0483 215 iopamidol 61% (ISOVUE-M 300) 15 ML SOLN 15.0 ML INTRAV ENOUS ONE TIME ONLY (SCHEDULED DOSE) Start: January 07, 2025 2:13:0 0 PM UTC End: January 07, 2025 2:13:0 0 PM [place] MUNISWAMY MELVA K INTERFAC ED on January 07, 2025 2:12:00 PM UT Discont inued 7813077 0041 3283 901 bupivacaine PF 0.25% 10 ML SOLN 10.0 ML EPIDUR AL ONE TIME ONLY (SCHEDULED DOSE) Start: January 07, 2025 2:13:0 0 PM UTC End: January 07, 2025 2:13:0 0 PM UT MUNISWAMY MELVA K INTERFAC ED on January 07, 2025 2:12:00 PM UT Discont inued 9216635 1695 6999 601 dexamethaso ne (DECADRON) 10 MG/ML SOLN 10.0 MG INTRAV ENOUS ONE TIME ONLY (SCHEDULED DOSE) Start: January 07, 2025 2:25:0 0 PM UTC End: January 07, 2025 2:25:0 0 PM [facility] on January 07, 2025 2:24:00 PM UT SOCIAL HISTORY SOCIAL HISTORY SNOMED-CT Social History Element Description Effective Dates Offered Cessation Comment UpdatedBy [id number] Historical Tobacco smoking status Current Every Day Smoker 1 PPD [id number] on December 14, 2018 3:07:04 PM UT SOCIAL HISTORY - Gender Sex: Male SOCIAL HISTORY - Status : status i nformation is not available Intention in Next Year: intention information is not available SOCIAL HISTORY - Sexual Behavior Sexual Orientation Gender Identity SNOMED-CT Description SNO MED -CT Description Activity Level No of Partners Partner Type UpdatedBy Information is not available VITAL SIGNS PATIENT VITAL SIGNS This section displays the mo st recent value for each vital sign as of January 13, 2025 5:35:56 PM UTC Loinc Code Vital Sign Activity Date Result Updated By 8310-5 Body temperature January 07, 2025 2: 37:00 PM UTC 97.5 [degF] [id number] on January 07, 2025 2:38:36 PM UTC 8462-4 Diastolic blood pressure January 07, 2025 2:37:00 PM UTC 84.0 mm[Hg] [id number] on January 07, 2025 2:38:36 PM UTC 8867-4 Heart rate January 07, 2025 2:3 7:00 PM UTC 71 /min [id number] on January 07, 2025 2:38:36 PM UTC 11479-4 Oxygen saturation in Arterial blood by Pulse oximetry January 07, 2025 2:37:00 PM UTC 97.0 % [id number] on January 07, 2025 2:38:36 PM UTC 9279-1 Respiratory rate January 07, 2025 2: 37:00 PM UTC 18 /min [id number] on January 07, 2025 2:38:36 PM UTC 8480-6 Systolic blood pressure January 07, 2025 2:37:00 PM UTC 166.0 mm[Hg] [id number] on January 07, 2025 2:38:36 PM UTC PEDIATRIC GROWTH CHART - VITAL SIGNS This section displays Head C ircumference Percentile, Weight for Length Percentile and BMI Percentile Loinc Code Pediatric Measure Age (Months) Result Updat ed By No Pediatric Growth Chart Pe rcentile Information Available. PROCEDURES PATIENT PROCEDURES Procedure information is not available. PROCEDURE NOTE Note Title [facility] - Post Procedur e Note Date Of Service January 07, 2025 8:19:13 PM UTC Created By [id number] on January 07 8:19:13 PM UTC Signed By [id number] on January 09 7:00:15 PM UTC Procedure / Surgery None Second diagnostic bilateral C4-C6 facet block Pre-Procedure Diagnosis Cervical spondylosis without myelopathy Post- Procedure Diagnosis Cervical spondylosis without myelopathy Procedure Description / Findings Bilateral Cervical Medial branch/ Facet Injection C4-C6 The patient has a history of cervical spondylosis bilaterally at level C4-C5, C5-C6.The patient presents today for a bilateral cervical facet block. The patient understands the risks and benefits of the procedure and wishes to proceed. The patient was seen in the preoperative area. Patient's consent was obtained and updated. Vitals were taken. Patient was then brought to the procedure suite and placed in a prone position. Noninvasive monitoring per routine anesthesia protocol was placed. Under fluoroscopic guidance, an AP view was obtained. A 22 gauge curved tip spinal needle was passed through skin on the left, anesthetized with 1% Lidocaine without epinephrine. The needle tip was guided into the left facet joint at each level. Next 0.2 ml of isovueM 300 preservative free contrast was injected. At this point 0.25% bupivacaine with 10 mg Decadron was injected, 0.5ml at each facet joint. Then the 22 gauge curved tip spinal needle was passed through the skin on the right, anesthetized with 1% lidocaine without epinephrine. The needle tip was guided into the right facet joint at each level. Next 0.2ml of isovueM 300 preservative free contrast was injected. At this point 0.25% bupivacaine with 10 mg Decadron was injected, 0.5ml at each facet joint. A sterile dressing was placed over the puncture sites. The patient tolerated the procedure with no complications. They were then brought to the post procedure area where they recovered nicely Anesthesia Type Local anesthesia Specimens None Implants Not applicable Procedure Verfication Patient identity confirmed before operative/invasive procedure, Procedure time out, Verification of surgical site/laterality, Verification of surgical device count Estimated Blood Loss None Complications None Disposition of Patient Home Electronically signed by CARI MORROW on 1500 HE[facility] CONCERNS Problems Concern Status Health Concern problem infor mation not available. Smoking Status Status Years Used Consumed packs p er day Health Concern smoking histo ry information not available. Family History Concern Status Health Concern family histor y information not available. ENCOUNTERS ENCOUNTER INFORMATION Reason for Visit BCMBB C4-C6 Admission January 07, 2025 1:57:[address] [address] Discharge January 07, 2025 9:57:00 PM [facility] DISC HARGED TO HOME OR SELF CARE ENCOUNTER DIAGNOSES Notes information is not ada ilable. Code System Diagnosis Onset Date Diagnosis information is not available. ABSTRACT DIAGNOSES Code System Diagnosis Updated By M47.812 ICD10 SPONDYLOSIS WITH OUT MYELOPATHY OR RADICULOPATHY, CERVICAL REGION [id number] on January 13, 2025 5:35:12 PM [facility] M47.812 ICD10 SPONDYLOSIS WITH OUT MYELOPATHY OR RADICULOPATHY, CERVICAL REGION [id number] on January 13, 2025 5:35:12 PM UT F17.200 ICD10 NICOTINE DEPENDE NCE, UNSPECIFIED, UNCOMPLICATED [id number] on January 13, 2025 5:35:12 PM UT Z86.718 ICD10 PERSONAL HISTORY OF OTHER VENOUS THROMBOSIS AND EMBOLISM [id number] on January 13, 2025 5:35:12 PM [facility] CARE TEAM Care Poolroom Table Attendant Role KARL AGUILA Primary Care MELVA CHAWLA Primary Attending MELVA CHAWLA Surgeon MELVA CHAWLA Referring MELVA CHAWLA Admitting HOSPITAL DISCHARGE INSTRUCTION DISCHARGE INSTRUCTION Encounter [id number] Admit Date January 07, 2025 1:57:00 PM [facility] Discharge Date January 07, 2025 9:57:00 PM [facility] PATIENT EDUCATION SUMMARY Patient/Visit Information: Patient Name: PRISCA THOMPSON Diag: Attending Caregiver: CARI Reyes Discharge Instruction Sheets Provided: Dr. Chawla General Discharge COVID-19 CDC-EN Discharge Information BEFAST-Stroke Warning Signs Fall Prevention in Hospitals and in the Home [facility] Pain and Responsible Opioid (Pain Medication) Management KYNECT- HELP Medication Side Effects Suicide - Managing your Feelings Patient Instructions: Followup Appointments/Instructions: CARE TEAM CARE marbleizer Role on Team Status Start Date End Date Update d By CARI MORROW Surgeon normal January 07, 2025 1:57:00 PM UT January 07, 2025 9:57:00 PM UT [id number] on January 13, 2025 5:35:29 PM [facility] MINGO MORROW PCP normal December 30, 2024 5:58:48 PM UT January 07, 2025 9:57:00 PM UT [id number] on January 13, 2025 5:35:29 PM [facility] CARI MORROW Referring normal December 30, 2024 5:58:48 PM UT January 07, 2025 9:57:00 PM UT [id number] on January 13, 2025 5:35:29 PM [facility] CARI MORROW Attending normal December 30, 2024 5:58:48 PM [facility] January 07, 2025 9:57:00 PM [facility] [id number] on January 13, 2025 5:35:29 PM [facility] CARI MORROW Admitting normal December 30, 2024 5:58:48 PM [facility] January 07, 2025 9:57:00 PM [facility] [id number] on January 13, 2025 5:35:29 PM [facility]
--- OUTSIDE RECORDS SUMMARY | 2025-01-16 11:57 | XMS_ITS | Continuity of Care Document ---
Author Organization [facility] Phone Care Team Providers Care Product Development Coordinator Name Role Phone HANDYKARL HOUSTON Nae Primary Care MELVA ALCALA Primary Attending [phone] MELVA ALCALA Admitting MELVA ALCALA Unavailable ALLERGIES AND ADVERSE REACTIONS ALLERGIES AND ADVERSE REACTIONS Code System Allergy Substance Adverse Reaction Date Reaction (Severity) Comment Status Reported By Updated By No Known Allergies [id number] on December 31, 2024 1:59:11 PM [facility] FAMILY HISTORY RELATION: Father Status: Cause of : Malignant neoplastic disease Age at : Unknown SNOMED-CT Diagnosis Age At Onset Information not available RELATION: Mother Status: LIVING SNOMED-CT Diagnosis Age At Onset Information not available MEDICATIONS HOME MEDICATIONS Status RXNORM NDC Medication Dose Route Frequency Dates Comments Reported By Updated By Drug Treatment Unknown DISCHARGE MEDICATIONS Status RXNORM NDC Medication Dose Route Frequency Dates Comments Physician Updated By No Discharge Medication Info rmation Available INPATIENT MEDICATIONS Status RXNORM NDC Medication Dose Route Frequency Rat e Quantity Dates Comments Physician Updated By No Inpatient Medication Info rmation Available SOCIAL HISTORY SOCIAL HISTORY SNOMED-CT Social History Element Description Effective Dates Offered Cessation Comment UpdatedBy [id number] Historical Tobacco smoking status Current Every Day Smoker 1 PPD [id number] on December 14, 2018 3:07:04 PM [facility] [place] SOCIAL HISTORY - Gender Sex: Male SOCIAL HISTORY - Status : status i nformation is not available Intention in Next Year: intention information is not available SOCIAL HISTORY - Sexual Behavior Sexual Orientation Gender Identity SNOMED-CT Description SNO MED -CT Description Activity Level No of Partners Partner Type UpdatedBy Information is not available [facility]ER[facility] Problems Concern Status Health Concern problem infor mation not available. Smoking Status Status Years Used Consumed packs p er day Health Concern smoking histo ry information not available. Family History Concern Status Health Concern family histor y information not available. ENCOUNTERS ENCOUNTER INFORMATION Reason for Visit OV Admission January 14, 2025 7:02:00 PM [facility] [address] [facility] [id number] Discharge January 14, 2025 7:02:00 PM [place] DISC HARGED TO HOME OR SELF CARE ENCOUNTER DIAGNOSES Notes information is not ada ilable. Code System Diagnosis Onset Date Diagnosis information is not available. ABSTRACT DIAGNOSES Code System Diagnosis Updated By G89.29 ICD10 OTHER CHRONIC PAIN [id number] o n January 16, 2025 3:56:33 PM UT M54.2 ICD10 CERVICALGIA [id number] on January 16, 2025 3:56:33 PM UT M48.02 ICD10 SPINAL STENOSIS, CERVICAL RE GION [id number] on January 16, 2025 3:56:33 PM UT G24.3 ICD10 SPASMODIC TORTICOLLIS [id number] on January 16, 2025 3:56:33 PM UT R51.9 ICD10 HEADACHE, UNSPECIFIED [id number] on January 16, 2025 3:56:33 PM UT M50.30 ICD10 OTHER CERVICAL D ISC DEGENERATION, UNSPECIFIED CERVICAL REGION [id number] on January 16, 2025 3:56:33 PM UT M47.819 ICD10 SPONDYLOSIS WITH OUT MYELOPATHY OR RADICULOPATHY, SITE UNSPECIFIED [id number] on January 16, 2025 3:56:33 PM UT M54.12 ICD10 RADICULOPATHY, CERVICAL MAGDA ON [id number] on January 16, 2025 3:56:33 PM UT M47.812 ICD10 SPONDYLOSIS WITH OUT MYELOPATHY OR RADICULOPATHY, CERVICAL REGION [id number] on January 16, 2025 3:56:33 PM UT R20.2 ICD10 PARESTHESIA OF SKIN [id number] on January 16, 2025 3:56:33 PM UT Z86.718 ICD10 PERSONAL HISTORY OF OTHER VENOUS THROMBOSIS AND EMBOLISM [id number] on January 16, 2025 3:56:33 PM UT F17.200 ICD10 NICOTINE DEPENDE NCE, UNSPECIFIED, UNCOMPLICATED [id number] on January 16, 2025 3:56:33 PM UT CARE TEAM Care Product Development Coordinator Role KARL AGUILA Primary Care MELVA ALCALA Primary Attending MELVA ALCALA Admitting MELVA ALCALA Referring CARE TEAM CARE relay man Role on Team Status Start Date End Date Update d By MINGO MORROW PCP normal January 14, 2025 4:00:00 AM [facility] January 14, 2025 7:02:00 PM UT [id number] on January 14, 2025 7:03:44 PM UT CARI MORROW Referring normal January 14, 2025 4:00:00 AM [facility] January 14, 2025 7:02:00 PM UT [id number] on January 14, 2025 7:03:44 PM [facility] [place] CARI MORROW Attending normal January 14, 2025 4:00:00 AM [facility] [place] January 14, 2025 7:02:00 PM UT [id number] on January 14, 2025 7:03:44 PM [facility] [place] CARI MORROW Admitting normal January 14, 2025 4:00:00 AM [facility] [place] January 14, 2025 7:02:00 PM UT [id number] on January 14, 2025 7:03:44 PM [facility] [place]
--- OUTSIDE RECORDS SUMMARY | 2025-01-27 08:52 | XMS_ITS | Continuity of Care Document ---
Author Organization [facility] Phone Care Team Providers Care Meters Superintendent Name Role Phone MELVA ALCALA Surgeon KARL AGUILA Primary Care MELVA ALCALA Admitting MELVA ALCALA Unavailable MELVA ALCALA Primary Attending [phone] ALLERGIES AND ADVERSE REACTIONS ALLERGIES AND ADVERSE REACTIONS Code System Allergy Substance Adverse Reaction Date Reaction (Severity) Comment Status Reported By Updated By No Known Allergies [id number] on January 22, 2025 1:07:53 PM [facility] FAMILY HISTORY RELATION: Father Status: Cause of : Malignant neoplastic disease Age at : Unknown SNOMED-CT Diagnosis Age At Onset Information not available RELATION: Mother Status: LIVING SNOMED-CT Diagnosis Age At Onset Information not available PROBLEMS PATIENT PROBLEMS Code Description/Comments Category Status Upda tiffanie By [id number] Cervical spondylosis without myelopathy completed [id number] on January 24, 2025 12:16:58 PM [facility] MEDICATIONS HOME MEDICATIONS Status RXNORM [facility] Medication Dose Route Frequency Dates Comments Reported By Updated By Active [id number] 52010 79509 8 Albuterol Sulfate HFA Inhalation Aerosol Solution 108 (90 Base) MCG/ACT 2.0 PUF INHALA TION RTBIDPRN Last Dose: [id number] on January 22, 2025 1:08:08 PM [facility] Active 505137 71294 62071 0 Atorvastatin Calcium Oral Tablet 40 MG 40.0 MG ORAL DAILY Last Dose: [id number] on January 22, 2025 1:08:09 PM [facility] Active 626741 20765 50852 1 bisoprolol (ZEBETA) 10.0 MG ORAL DAILY Last Dose: PHYSICI [id number] on January 22, 2025 1:09:18 PM [facility] Active 0686560 15459 28450 1 Buprenorphin e HCl-Naloxone HCl Sublingual Film 8-2 MG 1.5 FLS SUBLIN GUAL DAILY Last Dose: [id number] on January 22, 2025 1:08:15 PM [facility] Active 986591 88173 39993 0 buPROPion HCl ER (SR) Oral Tablet Extended Release 12 Hour 150 MG 150.0 MG ORAL DAILY Last Dose: [id number] on January 22, 2025 1:08:20 PM [place] Active 430073 61815 10248 9 Cyclobenzapr ine HCl Oral Tablet 10 MG 10.0 MG ORAL PRN Last Dose: [id number] on January 22, 2025 1:08:23 PM [place] Active 132681 67078 42264 0 diazePAM Oral Tablet 10 MG 10.0 MG ORAL PRN Last Dose: [id number] on January 22, 2025 1:08:27 PM [place] Active 733493 89436 22264 1 HYDROcodone- Acetaminophe n Oral Tablet 5-325 MG 1.0 TAB ORAL PRN Last Dose: [id number] on January 22, 2025 1:08:29 PM [facility] Active 380797 23913 22839 1 Isosorbide Mononitrate ER Oral Tablet Extended Release 24 Hour 30 MG 30.0 MG ORAL DAILY Last Dose: [id number] on January 22, 2025 1:08:34 PM [facility] Active 815483 87915 20323 0 Naproxen Oral Tablet 250 MG 250.0 MG ORAL BID Last Dose: [id number] on January 22, 2025 1:08:36 PM [facility] Active 1548136 FreeT extMe d SYMBICORT 160-4.5 MCG/ACT AERO 2.0 PUF INHALA TION BID Last Dose: PHYSICI [id number] on January 22, 2025 1:08:38 PM [facility] Active 211978 81669 38341 2 Valsartan Oral Tablet 320 MG 320.0 MG ORAL DAILY Last Dose: [id number] on January 22, 2025 1:08:40 PM [facility] DISCHARGE MEDICATIONS Status RXNORM NDC Medication Dose Route Frequency Dates Comments Physician Updated By No Discharge Medication Info rmation Available INPATIENT MEDICATIONS Status RXNORM ND Medication Dose Route Frequency Rat e Quantity Dates Comments Physician Updated [facility] [id number] [phone] dexamethaso ne (DECADRON) 10 MG/ML SOLN 10.0 MG INTRAV ENOUS ONE TIME ONLY (SCHEDULED DOSE) Start: January 23, 2025 1:09:0 0 PM UTC End: January 23, 2025 1:09:0 0 PM UTC MUNISWAMY MELVA K INTERFAC ED on January 23, 2025 1:08:00 PM UTC Discont inued [id number] 1063 9427 902 lidocaine (XYLOCAINE) 1% MPF SOLN 30.0 ML ONE TIME ONLY (SCHEDULED DOSE) Start: January 23, 2025 1:09:0 0 PM UTC End: January 23, 2025 1:09:0 0 PM UTC MUNISWAMY MELVA K INTERFAC ED on January 23, 2025 1:08:00 PM UTC Discont inued [id number] 0040 9115 901 bupivacaine PF 0.25% 10 ML SOLN 10.0 ML EPIDUR AL ONE TIME ONLY (SCHEDULED DOSE) Start: January 23, 2025 1:09:0 0 PM UTC End: January 23, 2025 1:09:0 0 PM UTC [facility] on January 23, 2025 1:08:00 PM UT SOCIAL HISTORY SOCIAL HISTORY SNOMED-CT Social History Element Description Effective Dates Offered Cessation Comment UpdatedBy [id number] Historical Tobacco smoking status Current Every Day Smoker 1 PPD [id number] on December 14, 2018 3:07:04 PM UT [...] for each vital sign as of January 27, 2025 12:52:26 PM UT Loinc Code Vital Sign Activity Date Result Updated By 8310-5 Body temperature January 23, 2025 1: 55:00 PM UTC 97.8 [degF] [id number] on January 23, 2025 1:55:54 PM UT 8462-4 Diastolic blood pressure January 23, 2025 1:55:00 PM UTC 85.0 mm[Hg] [id number] on January 23, 2025 1:55:54 PM UTC 8867-4 Heart rate January 23, 2025 1:5 5:00 PM UT 74 /min [id number] on January 23, 2025 1:55:54 PM [facility] 21335-2 Oxygen saturation in Arterial blood by Pulse oximetry January 23, 2025 1:55:00 PM UT 97.0 % [id number] on January 23, 2025 1:55:54 PM [facility] 9279-1 Respiratory rate January 23, 2025 1: 55:00 PM UT 18 /min [id number] on January 23, 2025 1:55:54 PM [facility] 8480-6 Systolic blood pressure January 23, 2025 1:55:00 PM UT 181.0 mm[Hg] [id number] on January 23, 2025 1:55:54 PM [facility] PEDIATRIC GROWTH CHART - VITAL SIGNS This section displays Head C ircumference Percentile, Weight for Length Percentile and BMI Percentile Loinc Code Pediatric Measure Age (Months) Result Updat ed By No Pediatric Growth Chart Pe rcentile Information Available. PROCEDURES PATIENT PROCEDURES Procedure information is not available. PROCEDURE NOTE Note Title [facility] - Post Procedur e Note Date Of Service January 23, 2025 7:56:03 PM UT Created By [id number] on January 23 7:56:03 PM UTC Signed By [id number] on January 24 12:17:18 PM UT Procedure / Surgery None Right C4-C6 medial branch radiofrequency ablation Pre-Procedure Diagnosis resolved Cervical spondylosis without myelopathy Resolved Post- Procedure Diagnosis resolved Cervical spondylosis without myelopathy Resolved Procedure Description / Findings Right Cervical RFTC C4-C6 The patient has a history of cervical spondylosis on the Right at level C4-C5, C5-C6. The patient presents today for Right Cervical RFTC. The patient understands the risks and benefits of the procedure and wishes to proceed. The patient was seen in the preoperative area. Patient's consent was obtained and updated. Vitals were taken. Patient was then brought to the procedure suite and placed in a prone position. The appropriate anatomic area was widely prepped with Chloraprep and draped in a sterile fashion. Noninvasive monitoring per routine anesthesia protocol was placed. Under fluoroscopic guidance an AP view was obtained. A 20 gauge RFTC cannula was passed through skin anesthetized with 1% Lidocaine without epinephrine. The needle tip was guided to the superior medial aspect of the C4 medial branch, and transverse process at C5,C6. Sensory mapping was undertaken with stimulation in the Cervical area obtained at [ 0.3, 0.3, 0.4] mAmps. Motor stimulation was undertaken at 1.2 mAmps. At no point was motor stimulation or sensory stimulation noted in a radicular fashion. Prior to ablation, each level was anesthetized with 2mL of 1% Lidocaine without epinephrine. The Right medial branch nerves were then ablated at 60* C for 90 seconds each. Following ablation, each level was injected with 1ml of a solution mixed with 0.25% bupivacaine and 10 mg of dexamethasone, the RFTC cannula was then removed. A sterile dressing was placed over the puncture sites. The patient tolerated the procedure with no complications. They were then brought to the post procedure area where they recovered nicely. The patient will be discharged home in stable condition. Patient understands to contact the Center with any post procedure questions or concerns. Discharge instructions given by nursing staff. Electronically signed by CARI MORROW on 0817 HEALTH CONCERNS Problems Concern Status Health Concern problem infor mation not available. Smoking Status Status Years Used Consumed packs p er day Health Concern smoking histo ry information not available. Family History Concern Status Health Concern family histor y information not available. ENCOUNTERS ENCOUNTER INFORMATION Reason for Visit RF C4-C6 1ST SIDE Admission January 23, 2025 12:59:[address] [id number] Discharge January 23, 2025 8:59:00 PM [facility] DISC HARGED TO HOME OR SELF CARE ENCOUNTER DIAGNOSES Notes information is not ada ilable. Code System Diagnosis Onset Date Diagnosis information is not available. ABSTRACT DIAGNOSES Code System Diagnosis Updated By M47.812 ICD10 SPONDYLOSIS WITH OUT MYELOPATHY OR RADICULOPATHY, CERVICAL REGION [id number] on January 27, 2025 12:51:43 PM [facility] M47.812 ICD10 SPONDYLOSIS WITH OUT MYELOPATHY OR RADICULOPATHY, CERVICAL REGION [id number] on January 27, 2025 12:51:43 PM [facility] F17.200 ICD10 NICOTINE DEPENDE NCE, UNSPECIFIED, UNCOMPLICATED [id number] on January 27, 2025 12:51:43 PM [facility] Z86.718 ICD10 PERSONAL HISTORY OF OTHER VENOUS THROMBOSIS AND EMBOLISM [id number] on January 27, 2025 12:51:43 PM UT CARE TEAM Care Meters Superintendent Role MELVA ALCALA Surgeon KARL AGUILA Primary Care MELVA ALCALA Admitting MELVA ALCALA Referring MELVA ALCALA Primary Attending HOSPITAL DISCHARGE INSTRUCTION DISCHARGE INSTRUCTION Encounter [id number] Admit Date January 23, 2025 12:59:0 0 PM UTC Discharge Date January 23, 2025 8:59:00 PM [facility] PATIENT EDUCATION SUMMARY Patient/Visit Information: Patient Name: PRISCA THOMPSON Diag: Attending Caregiver: CARI Reyes Discharge Instruction Sheets Provided: Dr. Clarke [facility] Radio Freq.Therm.Coag COVID-19 CDC-EN Discharge Information BEFAST-Stroke Warning Signs Fall Prevention in Hospitals and in the Home [facility] Pain and Responsible Opioid (Pain Medication) Management KYNECT- HELP Medication Side Effects Suicide - Managing your Feelings Patient Instructions: Followup Appointments/Instructions: CARE TEAM CARE exploration geologist Role on Team Status Start Date End Date Update d By CARI MORROW Surgeon normal January 23, 2025 12:59:00 PM [facility] January 23, 2025 8:59:00 PM UT [id number] on January 27, 2025 12:51:49 PM [facility] MINGO MORROW PCP normal January 15, 2025 5:04:45 PM [facility] January 23, 2025 8:59:00 PM UTC [id number] on January 27, 2025 12:51:49 PM UTC CARI MORROW Referring normal January 15, 2025 5:04:44 PM [facility] January 23, 2025 8:59:00 PM UTC [id number] on January 27, 2025 12:51:49 PM UT CARI MORROW Attending normal January 15, 2025 5:04:44 PM [facility] January 23, 2025 8:59:00 PM UTC [id number] on January 27, 2025 12:51:49 PM [facility] CARI MORROW Admitting normal January 15, 2025 5:04:44 PM [facility] January 23, 2025 8:59:00 PM UTC [id number] on January 27, 2025 12:51:49 PM [facility]
--- OUTSIDE RECORDS SUMMARY | 2025-02-07 11:42 | XMS_ITS | Continuity of Care Document ---
Author Organization [facility] Phone Care Team Providers Care Mine Boss Name Role Phone MELVA ALCALA Unavailable MELVA ALCALA Admitting MELVA ALCALA Primary Attending KARL AGUILA Primary Care ALLERGIES AND ADVERSE REACTIONS ALLERGIES AND ADVERSE REACTIONS Code System Allergy Substance Adverse Reaction Date Reaction (Severity) Comment Status Reported By Updated By No Known Allergies [id number] on February 05, 2025 12:14:[address] [facility] FAMILY HISTORY RELATION: Father Status: [...] Description Effective Dates Offered Cessation Comment UpdatedBy [id number] Historical Tobacco smoking status Current Every Day Smoker 1 PPD [id number] on December 14, 2018 3:07:[address] [facility] SOCIAL HISTORY - Gender Sex: Male SOCIAL [...] INFORMATION Reason for Visit OV Admission January 28, 2025 [facility] [address] [facility] [id number] Discharge January 28, 2025 1:25:00 PM UT DISC HARGED TO HOME OR SELF CARE ENCOUNTER DIAGNOSES Notes information is not ada ilable. Code System Diagnosis Onset Date Diagnosis information is not available. ABSTRACT DIAGNOSES Code System Diagnosis Updated By G89.29 ICD10 OTHER CHRONIC PAIN [id number] o n February 07, 2025 3:42:27 PM UT M54.2 ICD10 CERVICALGIA [id number] on February 07, 2025 3:42:27 PM UT M48.02 ICD10 SPINAL STENOSIS, CERVICAL RE GION [id number] on February 07, 2025 3:42:27 PM UT G24.3 ICD10 SPASMODIC TORTICOLLIS [id number] on February 07, 2025 3:42:27 PM UT R51.9 ICD10 HEADACHE, UNSPECIFIED [id number] on February 07, 2025 3:42:27 PM UT M50.30 ICD10 OTHER CERVICAL D ISC DEGENERATION, UNSPECIFIED CERVICAL REGION [id number] on February 07, 2025 3:42:27 PM UT M47.819 ICD10 SPONDYLOSIS WITH OUT MYELOPATHY OR RADICULOPATHY, SITE UNSPECIFIED [id number] on February 07, 2025 3:42:27 PM UT M54.12 ICD10 RADICULOPATHY, CERVICAL MAGDA ON [id number] on February 07, 2025 3:42:[address] [facility] M47.812 ICD10 SPONDYLOSIS WITH OUT MYELOPATHY OR RADICULOPATHY, CERVICAL REGION [id number] on February 07, 2025 3:42:27 PM UT R20.2 ICD10 PARESTHESIA OF SKIN [id number] on February 07, 2025 3:42:27 PM UT M79.18 ICD10 MYALGIA, OTHER SITE [id number] on February 07, 2025 3:42:[address] [facility] Z86.718 ICD10 PERSONAL HISTORY OF OTHER VENOUS THROMBOSIS AND EMBOLISM [id number] on February 07, 2025 3:42:27 PM UT F17.200 ICD10 NICOTINE DEPENDE NCE, UNSPECIFIED, UNCOMPLICATED [id number] on February 07, 2025 3:42:27 PM UTC CARE TEAM Care Mine Boss Role MELVA ALCALA Referring MELVA ALCALA Admitting MELVA ALCALA Primary Attending KARL AGUILA Primary Care CARE TEAM CARE churn tender Role on Team Status Start Date End Date Update d By MINGO MORROW PCP normal January 28, 2025 4:00:00 AM UTC January 28, 2025 1:25:00 PM UTC [id number] on January 28, 2025 1:25:59 PM UTC CARI MORROW Referring normal January 28, 2025 4:00:00 AM UTC January 28, 2025 1:25:00 PM UTC [id number] on January 28, 2025 1:25:59 PM UTC CARI MORROW Attending normal January 28, 2025 4:00:00 AM UTC January 28, 2025 1:25:00 PM UTC [id number] on January 28, 2025 1:25:59 PM UTC CARI MORROW Admitting normal January 28, 2025 4:00:00 AM UTC January 28, 2025 1:25:00 PM UTC [id number] on January 28, 2025 1:25:59 PM UTC
--- OUTSIDE RECORDS SUMMARY | 2025-02-13 10:35 | XMS_ITS | Continuity of Care Document ---
Author Organization [facility] Phone Care Team Providers Care [employer] Dispatcher Name Role Phone MELVA ALCALA Unavailable KARL AGUILA Primary Care MELVA ALCALA Surgeon MELVA ALCALA Primary Attending MELVA ALCALA Admitting ALLERGIES AND ADVERSE REACTIONS ALLERGIES AND ADVERSE REACTIONS Code System Allergy Substance Adverse Reaction Date Reaction (Severity) Comment Status Reported By Updated By No Known Allergies [id number] on February 05, 2025 12:14:01 PM UTC ASSESSMENTS Cervical spondylosis without myelopathy ; FAMILY HISTORY RELATION: Father Status: Cause of : Malignant neoplastic disease Age at : Unknown SNOMED-CT Diagnosis Age At Onset Information not available RELATION: Mother Status: LIVING SNOMED-CT Diagnosis Age At Onset Information not available PROBLEMS PATIENT PROBLEMS Code Description/Comments Category Status Upda doris By [id number] Cervical spondylosis without myelopathy active [id number] on February 05, 2025 12:12:26 PM UTC RESULTS Patient: JAY COPE Date of : 1960 LABORATORY RESULTS ORDER 100: GLUCOSE BEDSIDE T ESTING (LOINC: 65759-5) ORDER DATE: February 06, 2025 1:23:00 PM UTC Specimen Source: WHOLE BLOOD Specimen Type: Whole blood s ample PERFORMING LAB: [facility] [address] [facility] [id number] Result Comment: February 12 11:34:00 AM UTC Test performed by: [id number] ; Instrument: [id number] Final Result Date: February 12, 2025 11:34:00 AM [facility] LOINC TEST [place] [address]-8 Glucose [Mass/volume ] in Capillary blood by Glucometer H 133 mg/dl 70 mg/dl - 105 mg/dl February 12 11:34:00 AM [facility] LABORATORY NARRATIVE RESULTS Information is not available RADIOLOGY RESULTS Information is not available PATHOLOGY NARRATIVE RESULTS Information is not available MICROBIOLOGY RESULTS No Micro Labs/Results Exist for Patient BLOOD ADMIN RESULTS Information is not available MEDICATIONS HOME MEDICATIONS Status RXNORM [facility] Medication Dose Route Frequency Dates Comments Reported By Updated By Active [id number] 95448 49586 8 Albuterol Sulfate HFA Inhalation Aerosol Solution 108 (90 Base) MCG/ACT 2.0 PUF INHALA TION RTBIDPRN Last Dose: [id number] on February 05, 2025 12:14:18 PM [facility] Active 344383 17021 88174 0 Atorvastatin Calcium Oral Tablet 40 MG 40.0 MG ORAL DAILY Last Dose: [id number] on February 05, 2025 12:14:18 PM [facility] Active 751956 77383 03548 1 bisoprolol (ZEBETA) 10.0 MG ORAL DAILY Last Dose: PHYSICI [id number] on February 05, 2025 12:14:19 PM [facility] Active 8677046 23677 13536 1 Buprenorphin e HCl-Naloxone HCl Sublingual Film 8-2 MG 1.5 FLS SUBLIN GUAL DAILY Last Dose: [id number] on February 05, 2025 12:14:19 PM [facility] Active 709721 94129 93617 0 buPROPion HCl ER (SR) Oral Tablet Extended Release 12 Hour 150 MG 150.0 MG ORAL DAILY Last Dose: [id number] on February 05, 2025 12:14:19 PM [facility] Active 908592 00824 59195 9 Cyclobenzapr ine HCl Oral Tablet 10 MG 10.0 MG ORAL PRN Last Dose: [id number] on February 05, 2025 12:14:19 PM [facility] Active 073016 66979 73134 0 diazePAM Oral Tablet 10 MG 10.0 MG ORAL PRN Last Dose: [id number] on February 05, 2025 12:14:19 PM [facility] Active 180158 36381 47536 1 HYDROcodone- Acetaminophe n Oral Tablet 5-325 MG 1.0 TAB ORAL PRN Last Dose: [id number] on February 05, 2025 12:14:19 PM [facility] Active 911388 52537 51097 1 Isosorbide Mononitrate ER Oral Tablet Extended Release 24 Hour 30 MG 30.0 MG ORAL DAILY Last Dose: [id number] on February 05, 2025 12:14:19 PM [facility] Active 526730 75698 45375 0 Naproxen Oral Tablet 250 MG 250.0 MG ORAL BID Last Dose: [id number] on February 05, 2025 12:14:19 PM [facility] Active 6287648 FreeT extMe d SYMBICORT 160-4.5 MCG/ACT AERO 2.0 PUF INHALA TION BID Last Dose: PHYSICI [id number] on February 05, 2025 12:14:19 PM [facility] Active 465957 34204 45539 2 Valsartan Oral Tablet 320 MG 320.0 MG ORAL DAILY Last Dose: [email or web address] on February 05, 2025 12:14:20 PM [facility] DISCHARGE MEDICATIONS Status RXNORM [facility] Medication Dose Route Frequency Dates Comments Physician Updated By No Discharge Medication Info rmation Available INPATIENT MEDICATIONS Status RXNORM [place] Medication Dose Route Frequency Rat e Quantity Dates Comments Physician Updated By Discont inued [id number] 2439 305 601 dexamethaso ne (DECADRON) 10 MG/ML SOLN 10.0 MG INTRAV ENOUS ONE TIME ONLY (SCHEDULED DOSE) Start: February 06, 2025 1:26:0 0 PM [place] End: February 06, 2025 1:26:0 0 [facility] on February 06, 2025 1:26:00 PM [place] Discont inued [id number] 2724 8452 902 lidocaine (XYLOCAINE) 1% MPF SOLN 30.0 ML ONE TIME ONLY (SCHEDULED DOSE) Start: February 06, 2025 1:26:0 0 PM UTC End: February 06, 2025 1:26:0 0 PM [facility] MELVA K INTERFAC ED on February 06, 2025 1:26:00 PM [place] Discont inued 3294228 0044 9114 194 bupivacaine PF 0.25% 10 ML SOLN 10.0 ML EPIDUR AL ONE TIME ONLY (SCHEDULED DOSE) Start: February 06, 2025 1:26:0 0 PM UTC End: February 06, 2025 1:26:0 0 PM [facility] on February 06, 2025 1:26:00 PM [place] SOCIAL HISTORY SOCIAL HISTORY SNOMED-CT Social History Element Description Effective Dates Offered Cessation Comment UpdatedBy [id number] Historical Tobacco smoking status Current Every Day Smoker 1 PPD [id number] on December 14, 2018 3:07:04 PM UTC SOCIAL HISTORY - Gender Sex: Male SOCIAL [...] value for each vital sign as of February 13, 2025 2:35:28 PM UTC Loinc Code Vital Sign Activity Date Result Updated By 8302-2 Body height February 05, 2025 12:13:58 PM UTC 170.18 cm (67.0 in) [id number] on February 05, 2025 12:13:58 PM UTC 8310-5 Body temperature February 06, 2025 2:58:00 PM UTC 98.0 [degF] 8462-4 Diastolic blood pressure February 06, 2025 2:58:00 PM UTC 79.0 mm[Hg] 8867-4 Heart rate February 06, 2025 2:58:00 PM UTC 72 /min 03414-5 Oxygen saturation in Arterial blood by Pulse oximetry February 06, 2025 2:58:00 PM UTC 96.0 % 9279-1 Respiratory rate February 06, 2025 2:58:00 PM UTC 18 /min 8480-6 Systolic blood pressure February 06, 2025 2:58:00 PM UTC 183.0 mm[Hg] PEDIATRIC GROWTH CHART - VITAL SIGNS This section displays Head C ircumference Percentile, Weight for Length Percentile and BMI Percentile Loinc Code Pediatric Measure Age (Months) Result Updat ed By No Pediatric Growth Chart Pe rcentile Information Available. PROCEDURES PATIENT PROCEDURES Procedure information is not available. PROCEDURE NOTE Note Title [facility] - Post Procedur e Note Date Of Service February 06, 2025 4:26:0 0 PM UTC Created By [id number] on February 07, 2025 4:26:09 PM UTC Signed By [email or web address] on February 12, 2025 4:39:19 PM UTC Procedure / Surgery None Left C4-C6 medial branch radiofrequency ablation Pre-Procedure Diagnosis Cervical spondylosis without myelopathy Post- Procedure Diagnosis Cervical spondylosis without myelopathy Procedure Description / Findings Left Cervical RFTC C4-C6 The patient has a history of cervical spondylosis on the left at level C4-C5, C5-C6. The patient presents today for left Cervical RFTC. The patient understands the risks [...] The needle tip was guided to the C4 medial branch and transverse process at C5, C6. Sensory mapping was undertaken with stimulation in the Cervical area obtained at [0.4, 0.4, 0.3 ] mAmps. Motor stimulation was undertaken at 1.2 mAmps. At no point was motor stimulation or sensory stimulation noted in a radicular fashion. Prior to ablation, each level was anesthetized with 2mL of 1% Lidocaine without epinephrine. The left medial branch nerves were then ablated at 60* C for 90 seconds each. Following ablation, each level was injected with 1ml of a solution mixed with 0.25% bupivacaine and 10mg of dexamethasone, the RFTC cannula was then removed. A sterile dressing was placed over the puncture sites. The patient tolerated the procedure with no complications. They were then brought to the post procedure area where they rec a overed nicely. The patient will be discharged home in stable condition. Patient understands to contact the Center with any post procedure questions or concerns. Discharge instructions given by nursing staff. Electronically signed by CARI MORROW on 8586 [facility]NS Problems Concern Status Health Concern problem infor mation not available. Smoking Status Status Years Used Consumed packs p er day Health Concern smoking histo ry information not available. Family History Concern Status Health Concern family histor y information not available. ENCOUNTERS ENCOUNTER INFORMATION Reason for Visit LCRF C4-C6 2ND SIDE Admission February 06, 2025 1:14:[address] [address] Discharge February 06, 2025 9:14:00 PM [place] DIS CHARGED TO HOME OR SELF CARE ENCOUNTER DIAGNOSES Notes information is not ada ilable. Code System Diagnosis Onset Date Diagnosis information is not available. ABSTRACT DIAGNOSES Code System Diagnosis Updated By M47.812 ICD10 SPONDYLOSIS WITH OUT MYELOPATHY OR RADICULOPATHY, CERVICAL REGION [id number] on February 13, 2025 2:34:56 PM UT M47.812 ICD10 SPONDYLOSIS WITH OUT MYELOPATHY OR RADICULOPATHY, CERVICAL REGION [id number] on February 13, 2025 2:34:56 PM UT F17.200 ICD10 NICOTINE DEPENDE NCE, UNSPECIFIED, UNCOMPLICATED [id number] on February 13, 2025 2:34:56 PM UT Z86.718 ICD10 PERSONAL HISTORY OF OTHER VENOUS THROMBOSIS AND EMBOLISM [id number] on February 13, 2025 2:34:56 PM [place] CARE TEAM Care [employer] Dispatcher Role MELVA ALCALA Referring KARL AGUILA Primary Care MELVA ALCALA Surgeon MELVA ALCALA Primary Attending MELVA ALCALA Admitting HOSPITAL DISCHARGE INSTRUCTION DISCHARGE INSTRUCTION Encounter [id number] Admit Date February 06, 2025 1:14:0 0 PM UTC Discharge Date February 06, 2025 9:14:0 0 PM [place] PATIENT EDUCATION SUMMARY Patient/Visit Information: Patient Name: PRISCA THOMPSON Diag: Attending Caregiver: CARI Reyes Discharge Instruction Sheets Provided: Dr. Clarke [facility] Radio Freq.Therm.Coag Discharge Information BEFAST-Stroke Warning Signs Fall Prevention in Hospitals and in the Home [facility] Pain and Responsible Opioid (Pain Medication) Management KYNECT- HELP Medication Side Effects Suicide - Managing your Feelings Patient Instructions: Followup Appointments/Instructions: CARE TEAM CARE motion picture narrator Role on Team Status Start Date End Date Update d By CARI MORROW Surgeon normal February 06, 2025 1:14:00 PM UT February 06, 2025 9:14:00 PM UT [id number] on February 13, 2025 2:35:02 PM [facility] MINGO MORROW PCP normal January 29, 2025 2:34:59 PM UT February 06, 2025 9:14:00 PM UT [id number] on February 13, 2025 2:35:02 PM UT CARI MORROW Referring normal January 29, 2025 2:34:59 PM UTC February 06, 2025 9:14:00 PM UT [id number] on February 13, 2025 2:35:02 PM UT CARI MORROW Attending normal January 29, 2025 2:34:59 PM UTC February 06, 2025 9:14:00 PM [place] [id number] on February 13, 2025 2:35:02 PM UT CARI MORROW Admitting normal January 29, 2025 2:34:59 PM UTC February 06, 2025 9:14:00 PM UTC [id number] on February 13, 2025 2:35:02 PM UTC
--- NOTE | 2025-03-03 08:21 | MR_ITS ---
FINAL REPORT CLINICAL HISTORY: ABNL BRAIN CT headaches pt stated pain from neck into head FINDINGS: Multiplanar MR imaging of the brain was performed without and with contrast. There are scattered abnormal foci in the deep white matter which are nonspecific but likely due to chronic ischemia.There is no evidence of intracranial hemorrhage or mass. No abnormal extra-axial fluid collection is seen. The ventricular size is within normal limits. There is no evidence of shift of the midline structures. The posterior fossa and brainstem have an unremarkable appearance. No area of abnormal restricted diffusion is identified. No abnormal contrast enhancement is seen. Normal major vessel vascular flow voids are noted. IMPRESSION: Findings likely related to chronic ischemia without acute intracranial abnormality identified. Reviewed, Interpreted and Dictated by Jaxon Mane MD Transcribed by Fauzia Montesinos Authenticated and [facility]
--- OUTSIDE RECORDS SUMMARY | 2025-03-03 08:30 | XMS_ITS | Continuity of Care Document ---
Author Organization [facility] Address [address] [place] [address] Care Team Providers Care Gut Puller Name Role Phone KARL AGUILA Referring Provider KARL AGUILA Primary Care Provider Assessment Encounter Date Assessment Date Assessment LastModified by Organization Details LastModified Time 01/14/2025 01/14/2025 The patient is a 64 year old male referred by Dr. Aguila for neck and LUE pain with sensation changes. The patient has a history of DVT of the RLE (tibial vein). Not available 01/15/2025 10:05:43 Plan of Treatment Reminders Order Date Submit Date Provider Last Modified By Organization Details Last Modified Time Details Appointments OV EST 15 2024 02:45P M BRYN BOLDEN PA-C Not available Not available Not available Lab None recorded. Referral None recorded. Procedures cervical radiofreq uency ablation (PROC) - Cervical RFA C4-C6. [address]. [id number] 2024 025 [id number] Curtis Chawla MD, [address], [address], [place], [address], 02/10/2025 14:30:11 Surgeries None recorded. Imaging None recorded. Medication Orders None recorded. Patient TargetsNo targets recorded. Patient Instructions Encounter Date Encounter Id Patient Instructions Last Modified By Organization Details Last Modified Time 01/14/2025 [id number] I have discussed in great detail our potential treatment options which would include a rehabilitative approach to care. This program would include medication management, Physical Therapy, consideration for interventional procedures as appropriate, and lifestyle modification (diet, weight loss, exercise, smoking/tobacco cessation, holistic approach including meditation and yoga). The patient understands and agrees prior to proceeding with this plan. _ __ __ __ __ __ __ __ __ __ __ __ __ __ __ __ __ __ __ __ __ __ __ __ __ __ __ __ _ RECORDS REVIEW: As per clinic policy, we will have the patient sign a release to obtain previous imaging and clinical notes. _ __ __ __ __ __ __ __ __ __ __ __ __ __ __ __ __ __ __ __ __ __ __ __ __ __ __ __ _ PROCEDURE: I counseled the patient extensively and informed of the respective risks/benefits of the procedure(s). The pertinent risks/benefits will be elaborated on and fully outlined in the informed consent. __ PSYCH: Pain affecting Neuro-psych behavior was discussed. Discussed about pain psychological counseling as a part of the multimodal approach to pain treatment. _ __ __ __ __ __ __ __ __ __ __ __ __ __ __ __ __ __ __ __ __ __ __ __ __ __ __ __ _ REHABILITATION: Discussed with the patient the importance of diet, daily physical activity and PT. Discussed with the patient the need to be scheduled for physical therapy since physical therapy will prolong the benefits of the procedure and interventions. _ __ __ __ __ __ __ __ __ __ __ __ __ __ __ __ __ __ __ __ __ __ __ __ __ __ __ __ _ I have reviewed patient's EMELY report prior to prescribing Schedule II, III, and IV medications that require review by law. Not available 01/15/2025 10:05:44 Reason for Referral None Reported. Medical Equipment None Reported. Allergies No known drug allergies Medications Name Sig Start Date Stop Date Status Note LastModified by Organization Details LastModified Time cyclobenz aprine 10 mg tablet active Not Available Not Available No t Available atorvasta tin 40 mg tablet active Not Available Not Available Not Available methocarb denise 500 mg tablet Take 2 tablets twice a day by oral route as needed for 15 days. 2024 active Not Available Not Available Not Avai lable bupropion HCl SR 150 mg tablet,12 hr sustained -release active Not Available Not Available Not Available hydrocodo ne 5 mg-acetam inophen 325 mg tablet active Not Available Not Available Not Available prednison e 20 mg tablet 11/15 completed Not Available Not Available Not Available isosorbid e mononitra te ER 30 mg tablet,ex tended release 24 hr active Not Available Not Available Not Available naproxen 250 mg tablet active Not Available Not Available Not Available bisoprolo l fumarate 10 mg tablet active Not Available Not Available Not Available lidocaine 5 % topical patch APPLY 1 PATCH BY TOPICAL ROUTE ONCE DAILY (MAY WEAR UP TO 12HOURS. ) 2024 active Not Available Not Available Not Avai lable valsartan 320 mg tablet active Not Available Not Available Not Available diclofena c sodium 75 mg tablet,de layed release Take 1 tablet twice a day by oral route as needed for 15 days. 2024 active Not Available Not Available Not Avai lable diazepam 10 mg tablet active Not Available Not Available Not Available albuterol sulfate HFA 90 mcg/actua tion aerosol inhaler active Not Available Not Available Not Available Symbicort 160 mcg-4.5 mcg/actua tion HFA aerosol inhaler INHALE TWO PUFFS BY MOUTH TWICE DAILY --RINSE MOUTH AFTER USE-- active Not Available Not Available No t Available buprenorp gale 8 mg-naloxo ne 2 mg sublingua l film DISSOLVE 1 & 1/2 FILM UNDER THE TONGUE EVERY DAY active Not Available Not Available No t Available Eliquis 5 mg tablet 12/26 completed pt states he stopped it a month ago; states per his doctor Not Available Not Available Not Available Vitals Date Recorded Body weight Body temperature Oxygen saturation Oxygen saturation in Arterial blood by Pulse oximetry Heart rate Systolic And Diastolic Provider Name and Address Organization Details Last Updated DateTime 5 [address]502.8 1 g 97.8 [degF] 95 % 95 % 74 /min 141/86 mm[Hg] Henrietta HONG [facility] 15:21:52 Social History Question Answer Notes LastModified by Organizat ion Details LastModified Time Tobacco Smoking Status Current Every Day Smoker TOMASA Joshi [facility] [place] 12/09/2024 09:12:51 Do You Have An Advance Directive? No Information not available 12/09/2024 Are You Blind Or Do You Have Difficulty Seeing? No Information not available 12/09/2024 What Was The Date Of Your Most Recent Tobacco Screening? 11/01/2024 Information not available 12/09/2024 Are You Passively Exposed To Smoke? Yes Information not available 12/09/2024 How Much Tobacco Do You Smoke? 2 PPD Information not available 12/09/2024 Sex: Unknown Functional Status Question Answer Note LastModified by Organizat ion Details LastModified Time Do you use any illicit or recreational drugs? No Information not available 12/09/2024 What is your level of alcohol consumption? None Information not available 12/09/2024 Do you or have you ever used smokeless tobacco? Never used smokeless tobacco Information not available 12/09/2024 What is your exercise level? Moderate Information not available 12/09/2024 Mental Status Question Answer Note LastModified by Organization D etails LastModified Time Do you feel stressed (tense, restless, nervous, or anxious, or unable to sleep at night)? [id number] Information not available 12/09/2024 Family History Nothing Reported. Medical History Condition Response COPD Y Spine Problems Y Obstructive Sleep Apnea Y Arthritis Y Stroke Y Rheumatoid Arthritis Y Headaches Y Back Problems Y High Cholesterol Y Heart Disease Y Hypertension Y Past Encounters Encounter ID Performer Location Encounter Start Date Encounter Closed Date Diagnosis/Indication Diagnosis SNOMED-CT Code Diagnosis ICD10 Code Diagnosis Note [id number] BRYN BOLDEN PA-C [facility] [address] [place] [address] 12/26/2024 09:55:39 12/26/2024 10:37:44 Spinal stenosis in cervical region 16347851 M48.02 - The previously (11/21/24) performed cervical epidural was successful in decreasing radicular pain by greater than 50% in the short-term .- I have reviewed the cervical MRI (10/2024), which revealed moderate degenerati ve changes (most pronounced at C3-C4 and C4-C5); minimal annular disc bulges from C2-C7. Isolated c ervical dystonia 749251599 G24.3 - The patient may be a good candidate for Botox injections , which can be discussed in the future. Daily headache 399644132 1 03 R51.9 Degenerati on of cervical intervertebral disc 09187057 M50.30 Arthropath y of spinal facet joint 810717843 M47.819 Brachial ( cervical) neuritis 264538382 M54.12 Cervical spondylosis 387 910442 M47.812 - The patient is 1 week S/P first bilateral cervical medial branch block at C4-C6, which was successful in decreasing non-radicu lar neck pain by greater than 80% in the short-term (at least 6 hours).- The patient complains of non-radicu lar neck pain.- I have reviewed the cervical x-ray, which revealed straighten ing and mild reversal of cervical lordosis; multilevel spondylosi s with areas of disc osteophyte complex formation and facet arthropath y (most notable at C5-C6 and C6-C7).- The patient has attempted to make lifestyle modificati ons, but pain continues to impede performing ADLs, thereby negatively affecting quality of life. I think the patient is a good candidate for interventi onal treatment, as their pain has been refractory to conservati ve (PT and/or physician- directed at-home exercises/ stretches) and pharmacolo gic approaches . - Considerin g the patient received significan t (greater than 80% pain relief for at least 6 hours) benefit from a block, I will repeat, and if they again receive significan t benefit, I will proceed with scheduling a cervical RFA. The procedure will be fluoroscop y-guided. I will perform the second block with steroid in effort to provide a greater extent of pain relief for a long duration of time, and hopefully gain clarity regarding efficacy.- I will follow up 1 week post-block . Paresthesia 12003147 R20 .2 - If sensation changes of the LUE persist/wo rsen, I will likely order an EMG/NCS. [id number] Curtis Chawla MD [facility] [address] [place] [address] 01/14/2025 15:02:29 01/14/2025 15:39:41 Spinal stenosis in cervical region 73222028 M48.02 - The previously (11/21/24) performed cervical epidural was successful in decreasing radicular pain by greater than 50% in the short-term .- I have reviewed the cervical MRI (10/2024), which revealed moderate degenerati ve changes (most pronounced at C3-C4 and C4-C5); minimal annular disc bulges from C2-C7. Isolated c ervical dystonia 714307839 G24.3 - The patient may be a good candidate for Botox injections , which can be discussed in the future. Daily headache 841425229 1 03 R51.9 Degenerati on of cervical intervertebral disc 08072378 M50.30 Arthropath y of spinal facet joint 726584975 M47.819 Brachial ( cervical) neuritis 396404450 M54.12 Cervical spondylosis 387 475044 M47.812 - The patient complains of non-radicu lar neck pain.- I have reviewed the cervical x-ray, which revealed straighten ing and mild reversal of cervical lordosis; multilevel spondylosi s with areas of disc osteophyte complex formation and facet arthropath y (most notable at C5-C6 and C6-C7).- The patient has attempted to make lifestyle modificati ons, but pain continues to impede performing ADLs, thereby negatively affecting quality of life. I think the patient is a good candidate for interventi onal treatment, as their pain has been refractory to conservati ve (PT and/or physician- directed at-home exercises/ stretches) and pharmacolo gic approaches .- S/P first bilateral cervical medial branch block at C4-C6 on 12/19/24, which was successful in decreasing non-radicu lar neck pain by greater than 80% in the short-term (at least 6 hours).- S/P his second bilateral cervical medial branch block at C4-C6 on 01/07/25, which was successful in decreasing non-radicu lar neck pain by greater than 80% for 3 days following his procedure. - Wilman antony the patient received significan t (greater than 80% pain relief for at least 6 hours) benefit from both blocks , I will proceed with scheduling a cervical RFA. The procedure will be fluoroscop y-guided. Patient prefers Right side first followed by Left side 1-2 weeks later.- Follow up 6 weeks post RFA. Paresthesia 59064069 R20 .2 - If sensation changes of the LUE persist/wo rsen, I will likely order an EMG/NCS. Health Concerns Section Related Observation LastModified by Organization Detai ls LastModified Time None Recorded Concern Status LastModified by Organization Details LastModified Time None Recorded Payers Encounter Date Sequence Insurance Name Policy Number Policy Fields Covered Member ID Fields Member ID Guarantor Name 01/14/2025 1 [employer] (MEDICARE REPLACEMENT/ ADVANTAGE - HMO) Lukasz Ray [id number] Lukasz Ray 01/14/2025 2 MEDICAID-[facility] CHOICES - FFS/TRADITIO NAL Lukasz Ray [id number] Lukasz Ray Notes Date Note Type Note Provider Name and Address Organization Details Recorded Time 01/14/2025 text/html 64 year old male referred by Dr. Aguila for neck pain, paresthesia, and left extremity pain. 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 Patient denies DM, illicit drug use, and anticoagulants. The patient presents to the clinic today to follow up post-procedure. The patient is 1 week S/P his second bilateral cervical medial branch block at C4-C6 on 01/07/25, which was successful in decreasing non-radicular neck pain by greater than 80% for 3 days following his procedure. The patient expresses being happy with the success of the procedure. Today the pain level is a 8/10. SCARLET CALLAHAN PA-C [address] , [place], [address], [facility] [place] 01/15/2025 10:13:45
--- OUTSIDE RECORDS SUMMARY | 2025-03-03 08:31 | XMS_ITS | Data Portability ---
Author Organization [place] - [facility] NANNETTE Osman ADMIN Address [address] [place] [id number] Care Team Providers Care Emergency Services Dispatcher Name Role Phone KARL AGUILA Referring Provider KARL AGUILA Primary Care Provider [phone] Assessment Encounter Date Assessment Date Assessment LastModified by Organization Details LastModified Time 11/06/2024 11/06/2024 64 year old male referred by Dr. Aguila for neck pain, paresthesia, and left extremity pain. 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 Patient denies DM, illicit drug use, and anticoagulant s. [email or web address] Not available 11/07/2024 16:20:00 12/09/2024 12/09/2024 64 year old male referred by Dr. Aguila for neck pain, paresthesia, and left extremity pain. 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 Patient denies DM, illicit drug use, and anticoagulant s. Not available 12/09/2024 09:33:15 12/26/2024 12/26/2024 The patient is a 64 year old male referred by Dr. Aguila for neck and LUE pain with sensation changes. The patient has a history of DVT of the RLE (tibial vein). [email or web address] Not available 12/29/2024 23:32:18 01/14/2025 01/14/2025 The patient is a 64 year old male referred by Dr. Aguila for neck and LUE pain with sensation changes. The patient has a history of DVT of the RLE (tibial vein). Not available 01/15/2025 10:05:43 01/28/2025 01/28/2025 The patient is a 64 year old male referred by Dr. Aguila for neck and LUE pain with sensation changes. The patient has a history of DVT of the RLE (tibial vein). Not available 01/28/2025 10:04:29 Plan of Treatment Reminders Order Date Submit Date Provider Last Modified By Organization Details Last Modified Time Details Appointments OV EST 15 2024 02:45P M BRYN BOLDEN PA-C Not available Not available Not available Lab None recorded. Referral None recorded. Procedures cervical radiofreq uency ablation (PROC) - Cervical RFA C4-C6. 55107. 58557 2024 025 Curtis Chawla MD, [address] [facility], [place], [address], 02/10/2025 14:30:11 injection , diagnosti c or therapeut ic agent, paraverte bral facet joint, cervical or thoracic (PROC) - Bilateral cervical medial branch block at C4-C6 with steroid. 38873 and 93416. 2024 025 [email or web address] Curtis Cahwla MD, [address] [facility], [address], [place], [address], 01/07/2025 15:55:50 injection , diagnosti c or therapeut ic agent, paraverte bral facet joint, cervical or thoracic (PROC) - BCMBB (1st) C4-C6. 69587. 27555 2024 025 Not available 12/19/2024 10:28:12 epidural steroid injection , cervical interlami kevin (PROC) - 75469, CEI C7-T1 2024 025 Not available 11/21/2024 14:19:41 Surgeries None recorded. Imaging None recorded. Medication Orders lidocaine 5 % topical patch 2024 025 [facility], [address], [address], [place], [address], 01/28/2025 10:09:57 diclofena c sodium 75 mg tablet,de layed release 2024 025 [facility], [address] [place] [address], [address], [place], [address], 01/28/2025 10:09:59 methocarb denise 500 mg tablet 2024 025 [facility], [facility] [address], [address], [place], [address], 01/28/2025 10:09:56 Patient TargetsNo targets recorded. Patient Instructions Encounter Date Encounter Id Patient Instructions Last Modified By Organization Details Last Modified Time 11/06/2024 [id number] I have discussed in great detail our [...] __ __ __ __ __ __ _ EMELY: [id number] I have reviewed patient's EMELY report prior to prescribing Schedule II, III, and IV medications that require review by law. [email or web address] Not available 11/07/2024 16:46:52 12/09/2024 [id number] I have discussed in great detail our [...] __ __ __ __ __ __ _ EMELY I have reviewed patient's EMELY report prior to prescribing Schedule II, III, and IV medications that require review by law. Not available 12/09/2024 09:42:26 12/26/2024 [id number] I have discussed in great detail our [...] IV medications that require review by law. [email or web address] Not available 12/29/2024 23:30:58 01/14/2025 [id number] I have discussed in great detail our [...] review by law. Not available 01/15/2025 10:05:44 01/28/2025 [id number] I have discussed in great detail our [...] that require review by law. Not available 01/28/2025 10:04:31 Reason for Referral None Reported. Results Created Date Observation Date Name Description Value Unit Range Abnormal Flag Note LastModifiedBy Organization Detail LastModifiedTime 11/07/19 25 11/01/2024 MRI, cervi mariaelena spine , w/o contr ast No observ ation record ed. [email or web address] [facility] (Med Record) [address], [place], [address], 11/11/2024 12:07:22 Result Notes None recorded. Medical Equipment None Reported. Allergies No known [...] Address Organization Details Last Updated DateTime 5 59285.8 6 g 98.6 [degF] 96 % 96 % 68 /min 120/69 mm[Hg] Heather Chowdhury [facility] & [place] 5 11:25:01 Date Recorded Body weight Body temperature Oxygen saturation Oxygen saturation in Arterial blood by Pulse oximetry Heart rate Systolic And Diastolic Provider Name and Address Organization Details Last Updated DateTime 5 53833.3 9 g 97.5 [degF] 97 % 97 % 64 /min 146/87 mm[Hg] [facility] & [place] 5 09:11:51 Date Recorded Body weight Body temperature Oxygen saturation Oxygen saturation in Arterial blood by Pulse oximetry Heart rate Systolic And Diastolic Provider Name and Address Organization Details Last Updated DateTime 5 00794.3 9 g 97.1 [degF] 97 % 97 % 63 /min 136/86 mm[Hg] [facility] [place] 5 10:10:14 Date Recorded Body weight Body temperature Oxygen saturation Oxygen saturation in Arterial blood by Pulse oximetry Heart rate Systolic And Diastolic Provider Name and Address Organization Details Last Updated DateTime 5 21700.8 1 g 97.8 [degF] 95 % 95 % 74 /min 141/86 mm[Hg] [facility] [place] 5 15:21:52 Date Recorded Body height Body mass index (BMI) Body weight Body temperature Oxygen saturation Oxygen saturation in Arterial blood by Pulse oximetry Heart rate Systolic And Diastolic Provider Name and Address Organization Details Last Updated DateTime 5 170.18 cm 29.4 kg/m2 82627.2 1 g 97.7 [degF] 97 % 97 % 81 /min 172/95 mm[Hg] Myriam Nelson [facility] [place] 09:46:59 Social History Question Answer Notes LastModified by Organizat ion Details LastModified Time Tobacco Smoking Status Current Every Day Smoker Henrietta ashley, [facility] [place] 12/09/2024 09:12:51 Do You Have An Advance [...] anxious, or unable to sleep at night)? [id number] Information not available 12/09/2024 Family History Nothing Reported. Medical History Condition Response COPD Y Spine Problems Y Obstructive Sleep Apnea Y Arthritis Y Back Problems Y Stroke Y High Cholesterol Y Heart Disease Y Rheumatoid Arthritis Y Headaches Y Hypertension Y Past Encounters Encounter ID Performer Location Encounter Start Date Encounter Closed Date Diagnosis/Indication Diagnosis SNOMED-CT Code Diagnosis ICD10 Code Diagnosis Note [id number] Curtis Chawla MD [facility] [address] [place] [address] 11/06/2024 10:02:39 11/06/2024 12:01:07 Degeneration of cervical intervertebral disc 67412802 M50.30 - Based on imaging, history, and PE I the patient's pain appears to be secondary to cervical stenosis and cervical radiculiti s. - Previous cervical MRI imaging done on 11/01/2024 shows moderate degenerati ve changes most pronounced at C3-4 and C4-C5. Minimal annular disc bulge at [id number] C7.- Previous cervical X-ray imaging done on 09/24/2024 shows some straighten ing and mild reversal of the usual cervical lordosis, multilevel spondylosi s change is present with areas of disc osteophyte complex formation and facet arthropath y most notable at C5-C6 and C6-C7. - I will proceed with a cervical epidural steroid injection to help with the neck pain and the radicular pain. This procedure will be done under fluoroscop ic.With the patient returns back if the pain is not well controlled then I will start working on the cervical medial branch block to help with a cervical axial pain and headaches. - I will follow up 2 weeks post injection. 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 Spinal louie nosis in cervical region 81020286 M48.02 Daily headache 883433074 1 03 R51.9 [id number] Curtis Chawla MD [facility] [address] [place] [address] 12/09/2024 08:54:55 12/09/2024 09:22:00 Degeneration of cervical intervertebral disc 78368620 M50.30 Isolated c ervical dystonia 896907640 G24.3 - Patient has his head tilted forward and is painful on his neck to look straight.- I will continue to observe the cervical dystonia and if it does not get better after the epidural and the medial branch block then I will plan Botox for the cervical dystonia. Spinal louie nosis in cervical region 67961054 M48.02 - Based on imaging, history and PE the patient's pain appears to be secondary to cervical stenosis and cervical radiculiti s.- Previous cervical MRI imaging done on 11/01/2024 shows moderate degenerati ve changes most pronounced at C3-4 and C4-C5. Minimal annular disc bulge at C2 through C7.- S/p Cervical epidural steroid injection on 11/21/24. Patient states he did get some benefit from his injection >50% reduction in pain however it did not resolve all of his neck pain.- Patient still with LUE intermitte nt radicular pain, if pain does not resolve following his cervical blocks I will likely proceed with an EMG nerve conduction study. Patient did not want to proceed with the [facility] study today. Daily headache 696568845 1 03 R51.9 Arthropath y of spinal facet joint 826922393 M47.819 Brachial ( cervical) neuritis 104175910 M54.12 Cervical spondylosis 387 841717 M47.812 - Previous cervical X-ray imaging shows straighten ing and mild reversal of the usual cervical lordosis, multilevel spondylosi s change is present with areas of disc osteophyte complex formation and facet arthropath y most notable at C5-C6 and C6-C7.- Based on patients history, imaging and physical exam findings his neck pain is multifacto rial and due to cervical spondylosi s, cervical DDD and cervical stenosis.- To address axial, non-radicu lar neck pain, I will proceed with scheduling a bilateral cervical medial branch block at C4-C6. If the patient receives significan t (greater than 80% pain relief for at least 6 hours) benefit from a block, I will repeat based on insurance, and if the patient again receives significan t benefit, I will proceed with scheduling a Cervical RFA. The procedure will be fluoroscop y-guided.- Follow up one week post block [id number] BRYN BOLDEN PA-C [facility] [address] [place] [address] 12/26/2024 09:55:39 12/26/2024 10:37:44 Spinal stenosis in cervical region 04089021 M48.02 - The previously (11/21/24) performed cervical epidural was successful in decreasing radicular pain by greater than 50% in the short-term .- I have reviewed the cervical MRI (10/2024), which revealed moderate degenerati ve changes (most pronounced at C3-C4 and C4-C5); minimal annular disc bulges from C2-C7. Isolated c ervical dystonia 094936641 G24.3 - The patient may be a good candidate for Botox injections , which can be discussed in the future. Daily headache 408917973 1 03 R51.9 Degenerati on of cervical intervertebral disc 56615626 M50.30 Arthropath y of spinal facet joint 667930518 M47.819 Brachial ( cervical) neuritis 994731433 M54.12 Cervical spondylosis 387 519937 M47.812 - The patient is 1 week [...] follow up 1 week post-block . Paresthesia 56149464 R20 .2 - If sensation changes of the LUE persist/wo rsen, I will likely order an EMG/NCS. [id number] Curtis Chawla MD [facility] [address] [place] [address] 01/14/2025 15:02:29 01/14/2025 15:39:41 Spinal stenosis in cervical region 47484263 M48.02 - The previously (11/21/24) performed cervical epidural was successful in decreasing radicular pain by greater than 50% in the short-term .- I have reviewed the cervical MRI (10/2024), which revealed moderate degenerati ve changes (most pronounced at C3-C4 and C4-C5); minimal annular disc bulges from C2-C7. Isolated c ervical dystonia 516070230 G24.3 - The patient may be a good candidate for Botox injections , which can be discussed in the future. Daily headache 903622511 1 03 R51.9 Degenerati on of cervical intervertebral disc 75562150 M50.30 Arthropath y of spinal facet joint 050676918 M47.819 Brachial ( cervical) neuritis 784405098 M54.12 Cervical spondylosis 387 389975 M47.812 - The patient complains of non-radicu [...] 3 days following his procedure. - Wilman g the patient received significan t (greater than 80% pain relief for at least 6 hours) benefit from both blocks , I will proceed with scheduling a cervical RFA. The procedure will be fluoroscop y-guided. Patient prefers Right side first followed by Left side 1-2 weeks later.- Follow up 6 weeks post RFA. Paresthesia 68839756 R20 .2 - If sensation changes of the LUE persist/wo rsen, I will likely order an EMG/NCS. [id number] Curtis Chawla MD [facility] [address] [place] [address] 01/28/2025 09:24:56 01/28/2025 11:35:57 Spinal stenosis in cervical region 15760088 M48.02 - The previously (11/21/24) performed cervical epidural was successful in decreasing radicular pain by greater than 50% in the short-term .- I have reviewed the cervical MRI (10/2024), which revealed moderate degenerati ve changes (most pronounced at C3-C4 and C4-C5); minimal annular disc bulges from C2-C7. Isolated c ervical dystonia 694013604 G24.3 - The patient may be a good candidate for Botox injections , which can be discussed in the future. Daily headache 423784229 1 03 R51.9 Degenerati on of cervical intervertebral disc 61205410 M50.30 Arthropath y of spinal facet joint 698438869 M47.819 Brachial ( cervical) neuritis 478757445 M54.12 Cervical spondylosis 387 610015 M47.812 - The patient complains of non-radicu [...] for 3 days following his procedure. - S/p Right C4-C6 medial branch radio frequency ablation on 01/23/25. - discussed with patient today his nerves are dying off at approximat marvin one inch per month. It is still too early for him to feel benefit from his recent cervical RFA- Patient is scheduled for his left side to be completed on 02/05/25.- Will follow up on 03/10/25 post bilateral cervical RFA. Paresthesia 65789016 R20 .2 - If sensation changes of the LUE persist/wo rsen, I will likely order an EMG/NCS. Myofascial pain 74215345 9 M79.18 - Patient with myofascial pain and spasms in his neck following his Right side cervical RFA.- Based on his history and physical exam findings his pain is likely myofascial .- To address his pain and spasms I will prescribe PO Diclofenac 75mg 1-2 times per day as needed. Patient was advised not to take any other NSAIDS while utilizing Diclofenac .- I will also prescribe Lidocaine 5% transderma l patches as well as Po Methocarba mol 500 mg 1-2 times per day as needed. Patient failed 1% lidocaine patch therapy. Health Concerns Section Related Observation LastModified by Organization Detai ls LastModified Time None Recorded Concern Status LastModified by Organization Details LastModified Time None Recorded Advance Directives Directive N: Payers Insurance Date Sequence Insurance Name Policy Number Policy Fields Covered Member ID Fields Member ID Guarantor Name 01/27/2025 2 MEDICAID-[facility] [employer] - FFS/TRADITIO MARCELLUS Lal Radha Cory [id number] Lukasz Ray 10/21/2024 1 MEDICARE[place]ARE[place] Lukasz Ray [id number] Lukasz Ray 10/21/2024 2 MEDICAID-[facility] [employer] - FFS/TRADITIO MARCELLUS Lal Radha Cory [id number] Lukasz Ray 02/13/2025 1 [employer] (MEDICARE REPLACEMENT/ ADVANTAGE - HMO) Lukasz Ray [id number] Lukasz Ray Notes Date Note Type Note Provider Name and Address Organization Details Recorded Time 5 text/html 64 year old male referred by Dr. Aguila for neck pain, paresthesia, and left extremity pain. 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 Patient denies DM, illicit drug use, and anticoagulants. Patient presents to the clinic today as a new patient for neck pain. Patient states his pain is his neck and in between his shoulder blades. He states he has some pain that radiates into his arms at times. Patient states from his neck pain he is having neck pain. He states he has at least 15 migraine headaches a day due to his neck pain. He has not had any previous injections or surgeries on his neck. He states when he moves his neck his pain will exacerbate. When he is resting on the couch with his hea tilted back that is the only relief he gets. He says he is unable to look straight ahead due to the pain. He would like to discuss options to help alleviate his pain. Today's pain level is a 9/10. Initial complaint: neck painOnset: Augustontext: worseningCharacter: sharp, throbbing, aching, dullLocation: neck, head, shoulderbladesDuration: constantIntensity: 9/10Worse: moving neckBetter: resting Associated symptoms: Denies saddle anaesthesia, denies acute bowel/bladder changes, denies acute power loss. ADLs: The patient's pain interferes with daily chores, exercise, sleep, relationships, and walking. Current Pain Medications: nonePrior Pain Medications: noneNSAIDS/OTC: Aleve arthritisNon-interventi onal Tx: nonePhysical Therapy: noneInterventional Tx: noneSurgery: noneImaging/Studies: cervical x-ray, MRI cervical Curtis Chawla MD [address], [place], [address], [facility] & [place] 11/08/2024 10:15:26 5 text/html 64 year old male referred by Dr. Aguila for neck pain, paresthesia, and left extremity pain. 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 Patient denies DM, illicit drug use, and anticoagulants. Patient presents to the clinic today for follow up S/p Cervical epidural steroid injection on 11/21/24. Patient states he did get some benefit from his injection >50% reduction in pain however it did not resolve all of his neck pain. He is still complaining of neck pain, stiffness and headaches. His pain increases with increased used and ROM. He would like to discuss options to help alleviate his pain. Today's pain level is a 7/10. SCARLET CALLAHAN PA-C [address], [place], [address], [facility] [place] 12/09/2024 10:11:50 5 text/html 64 year old male referred by Dr. Aguila for neck pain, paresthesia, and left extremity pain. 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 Patient denies DM, illicit drug use, and anticoagulants. The patient presents to the clinic today to follow up post-procedure. The patient is 1 week S/P first bilateral cervical medial branch block at C4-C6, which was successful in decreasing non-radicular neck pain by greater than 80% in the short-term (at least 6 hours). The patient expresses being happy with the success of the procedure. Today the pain level is a 8/10. BRYN BOLDEN PA-C [address] , [place], [address], [facility] [place] 12/29/2024 23:43:32 5 text/html 64 year old male referred by [...] level is a 8/10. SCARLET CALLAHAN PA-C [address] , [place], [address], [facility] [place] 01/15/2025 10:13:45 text/html 64 year old male referred by Dr. Aguila for neck pain, paresthesia, and left extremity pain. 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 Patient denies DM, illicit drug use, and anticoagulants. The patient presents to the clinic today to follow up for pain reassessment. He is S/p Right C4-C6 medial branch radio frequency ablation on 01/23/25. Patient states on Monday he started experiencing Right sided neck pain and spasms. His pain was intermittent but he states is was primarily on the Right side. He further states he woke up yesterday and the neck pain moved from the right side to his left side. 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 Today the pain level is a 10/10. SCARLET CALLAHAN PA-C [address], [place], [address], [facility] [place] 01/28/2025 11:46:40
[2025-03-03 09:04] LABS: Blood Urea Nitrogen 18 mg/dl (9-20); Creatinine,Serum 1.00 mg/dl (0.66-1.25); Estimated Glomerular Filt Rate 75 ml/min (>60); GFR (African American) 90 ML/MIN (>60)
[2025-03-03] MEDS: SODIUM CHLORIDE 0.9% 10ML SYR (RAD ONLY) 10 ML IV (09:32)
[2025-03-03] MEDS: GADOTERIDOL INJ 20ML SYRINGE 19 ML IV (09:32)
== END 2025-03-03 23:59 | disposition home or self-care (01) ==
LOC: RAD 08:20
PROVIDERS: PCP Family Medicine
DX: R90.89 Other abnormal findings on diagnostic imaging of central nervous system (principal)
CPT/HCPCS: 36415; 70553; 82565; 84520; A9576

== ENCOUNTER 2025-04-06 19:51 | Emergency (ER) | payer MEDICARE, MEDICAID, SELFPAY ==
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
--- OUTSIDE RECORDS SUMMARY | 2025-02-19 08:22 | XMS_ITS | Encounter Summary ---
[facility] [address] [place] [address] Care Team Providers Care Trucking Supervisor Name Role Phone David Pruett MD Primary Care Provider [phone] Reason for Referral * MRI/CAT/PET Scan (Emergency) - Closed Specialty Diagnoses / Procedures Referred By Jean bernard Referred To Contact Radiology Diagnoses New onset headache Altered gait Procedures CT Head Without Contrast Hunter Browning PA-C [address] [place] [address] Phone: tel: fax: [address] [address] Phone: tel: Referral ID Status Reason Start Date Expiration Date Visits Re quested Visits Authorized [id number] Closed 02/18/2025 05/20/2026 1 1 Reason for Visit * MRI/CAT/PET Scan (Emergency) - Closed Specialty Diagnoses / Procedures Referred By Jean bernard Referred To Contact Radiology Diagnoses New onset headache Altered gait Procedures CT Head Without Contrast Hunter Browning PA-C [address] [place] [address] Phone: tel: fax: [facility] [address] [place] [address] Phone: tel: Referral ID Status Reason Start Date Expiration Date Visits Re quested Visits Authorized [id number] Closed 02/18/2025 05/20/2026 1 1 Encounter Details Date Type Department Care Team (Latest Contact Info) Description 02/19/2025 8:22 AM EDT - 02/19/2025 11:59 PM EDT Hospital Encounter [facility] [address] [place] [address] Hunter Browning, PAMadeleineC [address] [facility] [place] [address] New onset headache; Altered gait Discharge Disposition: Home or Self Care Social History Tobacco Use Types Packs/Day Years [...] on file documented as of this encounter Medications at Time of Discharge albuterol sulfate HFA 108 (90 Base) MCG/ACT inhalerIndications :Simple chronic bronchitis 1-2 puffs q 4-6 hours PRN 8 g 5 10/18/2024 amLODIPine (NORVASC) 10 MG tabletIndications: Primary hypertension Take 1 tablet by mouth Daily. 90 tablet 1 02/18/2025 apixaban (Eliquis) 5 MG tablet tabletIndications: Acute deep vein thrombosis (DVT) of tibial vein of right lower extremity 1 tablet by mouth twice a day 60 tablet 5 10/18/2024 aspirin 81 MG EC tablet Take 1 tablet by mouth Daily. atorvastatin (LIPITOR) 40 MG tabletIndications: Hyperlipidemia LDL goal <70 Take 1 tablet by mouth Every Night. 90 tablet 1 10/18/2024 bisoprolol (ZEBeta) 10 MG tabletIndications: Primary hypertension Take 1 tablet by mouth Daily. 90 tablet 1 10/18/2024 budesonide-formote rol (Symbicort) 160-4.5 MCG/ACT inhalerIndications :Simple chronic bronchitis Inhale 2 puffs 2 (Two) Times a Day. 6 g 5 04/10/2024 buprenorphine-nalo xone (SUBOXONE) 8-2 MG per SL tablet Place 1 tablet under the tongue. PT TAKES 1.5 DAILY buPROPion SR (Wellbutrin SR) 150 MG 12 hr tabletIndications: Personal history of tobacco use, presenting hazards to health Take 1 tablet by mouth 2 (Two) Times a Day. 120 tablet 2 09/24/2024 isosorbide mononitrate (IMDUR) 30 MG 24 hr tablet Take 1 tablet by mouth Daily. 30 tablet 11 04/18/2024 nitroglycerin (Nitrostat) 0.4 MG SL tabletIndications: Coronary artery disease involving ewiiaapaayp coronary artery of ewiiaapaayp heart without angina pectoris Place 1 tablet under the tongue Every 5 (Five) Minutes As Needed for Chest Pain. Take no more than 3 doses in 15 minutes. 10 tablet 12 10/26/2021 valsartan (Diovan) 320 MG tabletIndications: Primary hypertension Take 1 tablet by mouth Daily. 90 tablet 1 10/18/2024 cyclobenzaprine (FLEXERIL) 10 MG tabletIndications: Neck pain 1 PO QHS 30 tablet 09/24/2024 5 diazePAM (Valium) 10 MG tabletIndications: Claustrophobia 1 PO 30 minutes prior to MRI, do not drive after taking 1 tablet 10/25/2024 5 HYDROcodone-acetam inophen (NORCO) 5-325 MG per tabletIndications: Neck pain Take 1 tablet by mouth Every 8 (Eight) Hours As Needed for Severe Pain. 12 tablet 09/24/2024 5 naproxen (NAPROSYN) 250 MG tabletIndications: Neck pain 1 PO BID PRN shoulder pain 40 tablet 09/24/2024 5 documented as of this encounter Plan of Treatment Upcoming Encounters Date Type Department Care Team (Late st Contact Info) Description 04/18/2025 8:30 AM EDT Office Visit [facility] [address] [place] [address] David Pruett MD [address] [place] [address] 07/10/2025 10:30 AM EST Office Visit [facility] [address] [place] [address] Willard Reyes MD [address] [facility] [address] [place], [place] [id number] 07/18/2025 9:30 AM EST Office Visit [facility] [address] [facility] [address] [place] [address] Antony Marino MD [address] [facility] [address] [place] [address] documented as of this encounter Procedures Procedure Name Priority Date/Time Associated Diagnosis Comments CT HEAD WO CONTRAST STAT 02/19/2025 8 :30 AM EDT New onset headache Altered gait documented in this encounter Results * CT [...] MD 02/19/2025 8:50 AM EDT Workstation ID: [id number] Narrative 02/19/2025 8:[address] HEAD [...] expected limits for age. A few punctate zcii-JYJ-lqinuod lesions seen in the medial temporal lobes [...] within expected limits for age.A few punctate enhs-PEU-hwgjoic lesions seen in the medial temporal lobes [...] MD 02/19/2025 8:50 AM EDT Workstation ID: [id number] Hunter Browning PA-C IMG CT ORDERABLES Final Resu lt documented in this encounter Visit Diagnoses Diagnosis New onset headache Headache Altered gait Abnormality of gait documented in this encounter Additional Health Concerns Assessment Noted Time PHQ-2 Depression Total Score: 3 04/10/20 24 12:05 PM EDT documented as of this encounter Care Teams Trucking Supervisor Relationship Specialty Start Date End Date David Pruett MD [address] [place] [address] PCP - General Family Medicine 05/21/18 documented as of this encounter
--- OUTSIDE RECORDS SUMMARY | 2025-03-04 10:30 | XMS_ITS | Encounter Summary ---
Author Organization [facility] Address [address] [place] [id number] Care Team Providers Care User Interface Engineer Name Role Phone David Pruett MD Primary Care Provider [phone] Reason for Visit * Reason Comments Headache 1 wk f/up Encounter Details Date Type Department Care Team (Late st Contact Info) Description 03/04/2025 10:30 AM EDT Office Visit [facility] [address] [place] [address] David Pruett MD [address] [place] [address] New onset headache (Primary Dx); Tension headache Social History Tobacco Use Types Packs/Day Years [...] Sign Reading Time Taken Comments Blood Pressure 142/82 03/04/2025 10:18 AM EDT Pulse 81 03/04/2025 10:18 AM EDT Temperature 36.6 C (97.8 F) 03/04/2025 10:18 AM EDT Respiratory Rate 18 03/04/2025 10:18 AM EDT Oxygen Saturation 96% 03/04/2025 10:18 AM EDT Inhaled Oxygen Concentration - - Weight 87.1 kg (192 lb) 03/04/2025 10:18 AM EDT Height 170.2 cm (5' 7.01 ) 03/04/2025 10:18 AM E DT Body Mass Index 30.06 03/04/2025 10:18 AM EDT documented in this encounter Progress Notes * David Pruett MD - 03/04/2025 10:30 AM EDT Subjective Lukasz Ray is a 65 y.o. male. Headache Associated symptoms: headaches He has been having worse head aches Pain in back of his head Has had CT that was normal and then had MRI yesterday Sore to touch just inferior to R occipital ridge Can find comfortable position in his recliner Pain susan movement of his head Appointment with Cammy on 03/10/25 who treated his neck lorena with injecitons The following portions of the patient's history were reviewed and updated as appropriate: allergies, current medications, past family history, past medical history, past social history, past surgicalhistory, and problem list. Review of Systems Neurological: Positive for headaches. Objective Physical Exam Vitals and nursing note reviewed. Constitutional: General: He is not in acute distress. Appearance: Normal appearance. He is well-developed. Cardiovascular: Rate and Rhythm: Normal rate and regular rhythm. Heart sounds: Normal heart sounds. Pulmonary: Effort: Pulmonary effort is normal. Breath sounds: Normal breath sounds. Neurological: Mental Status: He is alert and oriented to person, place, and time. Psychiatric: Mood and Affect: Mood normal. Behavior: Behavior normal. Thought Content: Thought content normal. Judgment: Judgment normal. Assessment & Plan Diagnoses and all orders for this visit: 1. New onset headache (Primary) - predniSONE (DELTASONE) 20 MG tablet; Take 2 tablets by mouth Daily. Dispense: 10 tablet; Refill: 0 - cyclobenzaprine (FLEXERIL) 10 MG tablet; 1/2-1 PO Q 12 hours PRN headache Dispense: 30 tablet; Refill: 0 - acetaminophen-codeine (TYLENOL with CODEINE #3) 300-30 MG per tablet; Take 1 tablet by mouth Every 6 (Six) Hours As Needed for Moderate Pain. Dispense: 15 tablet; Refill: 0 2. Tension headache - cyclobenzaprine (FLEXERIL) 10 MG tablet; 1/2-1 PO Q 12 hours PRN headache Dispense: 30 tablet; Refill: 0 - acetaminophen-codeine (TYLENOL with CODEINE #3) 300-30 MG per tablet; Take 1 tablet by mouth Every 6 (Six) Hours As Needed for Moderate Pain. Dispense: 15 tablet; Refill: 0 THORNTON persists, right posterior occipital region, nl CT and MRI recently completed Will treat pred burst, flexeril PRN, and tylenol #3 Seeing PMR next week and will discuss with them Will call back INB in 10 days after PMR appointment documented in this encounter Plan of Treatment Upcoming Encounters Date Type Department Care Team (Late st Contact Info) Description 04/18/2025 8:30 AM EDT Office Visit [facility] [address] [place] [address] David Pruett MD [address] [place] [address] 07/10/2025 10:30 AM EST Office Visit [facility] [address] [address] Willard Reyes MD [address] [place] [address] [place] [address] 07/18/2025 9:30 AM EST Office Visit [facility] [address] [facility] [address] [place] [address] Antony Marino MD [address] [facility] [address] [place] [address] documented as of this encounter Visit Diagnoses Diagnosis New onset headache- Primary Headache Tension headache documented in this encounter Additional Health Concerns Assessment Noted Time PHQ-2 Depression Total Score: 3 04/10/20 24 12:05 PM EDT documented as of this encounter Care Teams User Interface Engineer Relationship Specialty Start Date End Date David Pruett MD [address] [place] [address] PCP - General Family Medicine 05/21/18 documented as of this encounter
[2025-04-06] VITALS (7 sets, daily range): BP systolic 122–165; BP diastolic 62–98; PULSE 72–84; RESP 12–21; TEMP 37.2; O2SAT 93–99; BMI 29.7
--- NOTE | 2025-04-06 19:46 | ECG_ITS ---
APPROVED REPORT Exam: Resting ECG HR:84 bpm ECG Measurements Heart Rate 84 AXES KS 137 P 43 QRSd 96 QRS -17 QT 364 T 63 QTc 406 Conclusion SINUS RHYTHM WITH SINUS ARRHYTHMIA LOW QRS VOLTAGE IN PRECORDIAL LEADS [QRS DEFLECTION < 1.0 mV IN CHEST LEADS] BORDERLINE ECG UNCONFIRMED REPORT Electronically signed by : Xavier Mark, 04/07/2025 03:12:35
--- NOTE | 2025-04-06 19:52 | ED_ITS ---
Discharge Plan Disposition Patient Disposition: Home, Self-Care Condition: Good Prescriptions Prescriptions: New prednisone 20 mg tablet 20 mg PO DAILY 5 Days Qty: 5 0RF azithromycin 500 mg tablet 500 mg PO DAILY 5 Days Qty: 5 0RF Eliquis DVT-PE Treat 30D Start 5 mg (74 tabs) tablets,dose pack 5 mg PO BID Qty: 74 0RF Rx Instructions: Take 10mg twice daily for one week and then 5mg twice daily after that. No Action clopidogrel [Plavix] 75 mg tablet 75 mg PO DAILY Qty: 30 5RF amlodipine [Norvasc] 10 mg tablet 10 mg PO DAILY Qty: 90 3RF aspirin [Adult Low Dose Aspirin] 81 mg tablet,delayed release (DR/EC) 81 mg PO DAILY bisoprolol fumarate 5 mg tablet 10 mg PO DAILY buprenorphine-naloxone 1 EACH film 1 each SL DAILY Referrals Follow up/Referrals: David Pruett [Primary Care Provider, Medical] - See instructions Activity Restrictions/Add. Instructions Additional Instructions/Restrictions: You should take the steroids daily for 5 days as well as the azithromycin for 5 days. I have sent you with a new prescription for Eliquis which you should start for the small blood clot in your lungs. I want you to follow-up with your primary care provider this week as you may need an adjustment in your blood thinners since you are already on aspirin as well as Plavix. Starting a blood thinner puts you at high risk for bleeding therefore if you get into a traumatic injury or other trauma you need to be evaluated in an emergency department. Otherwise return to the emergency department for any acute or worsening symptoms or any severe bleeding. Clinical Impressions Clinical Impression: Shortness of breath, Asthma exacerbation in COPD, Pulmonary embolism Print Language Print Language: Occitan Discharge ED Provider: India Diehl Adult HPI General Chief complaint: Shortness of Breath/Dyspnea Stated complaint: short of breath Time Seen by Provider: 04/06/25 19:52 History of Present Illness HPI narrative: Patient is a 55-year-old gentleman with past medical history of COPD, current smoker, coronary artery disease previous DVT on Eliquis in the past but no longer presented to the emergency department with shortness of breath. Patient states that shortness of breath started today. Patient has had a dry nonproductive cough. Patient reports some chest pain. Has since resolved. Patient denied any abdominal pain nausea or vomiting. Patient denied any headache vision changes. Related Data Home Medications ?Medication ?Instructions ?Recorded ?Confirmed buprenorphine 8 mg-naloxone 2 mg 1 each SL DAILY drug treatment 12/25/17 10/14/21 sublingual film aspirin 81 mg tablet,delayed 81 mg PO DAILY 01/03/18 0 10/14/21 release (Adult Low Dose Aspirin) bisoprolol fumarate 5 mg tablet 10 mg PO DAILY 0 10/14/21 Previous Rx's ?Medication ?Instructions ?Recorded clopidogrel 75 mg tablet (Plavix) 75 mg PO DAILY #30 t abs 11/05/18 amlodipine 10 mg tablet (Norvasc) 10 mg PO DAILY #90 t abs 10/14/21 apixaban 5 mg (74 tabs) tablets in 5 mg PO BID #74 tab s 04/06/25 a dose pack ([employer] DVT-PE Treat 30D Start) azithromycin 500 mg tablet 500 mg PO DAILY 5 days #5 t abs 04/06/25 prednisone 20 mg tablet 20 mg PO DAILY 5 days #5 tab s 04/06/25 Allergies Allergy/AdvReac Type Severity Reaction Status Date / Time No Known Allergies Allergy Verified 01/28/20 11:27 [facility] Disclaimer: The information contained in this section may have been updated after the patient was seen, as this information can be updated by other users. Medical History (Updated 04/07/25 @ 00:06 by India Diehl DO) HHD (hypertensive heart disease) CAD (coronary artery disease) Social History Smoking Status: Current every day smoker tobacco type: cigarettes packs per day: 1 alcohol intake: never substance use type: denies use current occupational status: unemployed Travel in the last 8 weeks?: None household members: none housing: house current occupational exposures/hazards: Yes caffeine: No Have you lived/traveled outside [place] in past 30 days?: No Contact w/someone who lives/traveled outside US past 30 days?: No Exposure to someone with infectious disease in past 14 days?: No Do you have a fever (greater than 100.4 F or 38 C)?: No Have you tested positive for COVID-19?: No Exposed to someone with COVID-19 in past 14 days?: No Do you have a sore throat?: No Do you have a cough?: No Do you have any weakness?: No Do you have any diarrhea?: No Are you experiencing any unusual bleeding?: No Do you have any muscle aches/pain?: No Do you have any abdominal pain?: No Are you experiencing loss of taste or smell?: No Other Medical History Have you received the Flu Vaccine for this season: No Have you received the Pneumonia Vaccine: No ROS Obtained: Yes All systems reviewed & no additional complaints except as documented and Yes Systems reviewed as appropriate & no additional complaints except as documented Physical Exam General General appearance: alert and in no apparent distress Head Head exam: atraumatic, normocephalic and normal inspection Eye Eye exam: Present normal appearance, PERRL and EOMI; Absent scleral icterus ENT ENT exam: Present normal exam and normal external ear exam Neck Neck exam: Present normal inspection and full ROM Chest Chest inspection: Present normal inspection and symmetric chest wall rise Respiratory Respiratory exam: Present normal lung sounds bilaterally and wheezes; Absent respiratory distress Cardiovascular Cardiovascular exam: Present regular rate, normal rhythm and normal heart sounds Abdominal Exam Abdominal exam: Present soft and distention; Absent tenderness, guarding or rebound Extremities Exam Extremities exam: Present normal inspection and full ROM Back Exam Back exam: Present normal inspection and full ROM Neurological Exam Neurological exam: Present alert and oriented X3 Psychiatric Psychiatric exam: Present normal affect and normal mood Skin Skin exam: Present warm and dry Medical Decision Making Medical Records Medical records reviewed: Yes I reviewed the patient's medical records. Screening: Per USPSTF and CDC recommendations, given the prevalence of disease in our region, it is our hospital?s policy to screen for HIV and viral Hepatitis for all patients aged 18 and over and those with ongoing risk factors. Isaiah Inquiry Pt receiving controlled substance: No Vital Signs: 04/06/25 19:52 04/06/25 20:01 04/06/25 20:16 Temperature 98.9 F Temperature Source Oral Pulse Rate 79 Pulse Rate [Right Radial] 72 Respiratory Rate 16 16 Blood Pressure 157/98 H Blood Pressure [Right Arm] 165/85 H Blood Pressure Mean [Right Arm] 111 Blood Pressure Source [Right Arm] Automatic Cuff Blood Pressure Position [Right Arm] Supine 02 Sat by Pulse Oximetry 97 93 L 97 Oxygen Delivery Method Room Air Room Air 04/06/25 20:30 04/06/25 20:47 04/06/25 21:00 Temperature Temperature Source Pulse Rate 84 77 77 Pulse Rate [Right Radial] Respiratory Rate 15 21 Blood Pressure 130/78 150/75 H Blood Pressure [Right Arm] Blood Pressure Mean [Right Arm] Blood Pressure Source [Right Arm] Blood Pressure Position [Right Arm] 02 Sat by Pulse Oximetry 99 96 Oxygen Delivery Method 04/06/25 22:00 04/07/25 00:09 Temperature 98.1 F Temperature Source Oral Pulse Rate 74 74 Pulse Rate [Right Radial] Respiratory Rate 12 12 Blood Pressure 122/62 122/62 Blood Pressure [Right Arm] Blood Pressure Mean [Right Arm] Blood Pressure Source [Right Arm] Blood Pressure Position [Right Arm] 02 Sat by Pulse Oximetry 94 L Oxygen Delivery Method Lab Data Lab results reviewed: Yes I reviewed the patient's lab results. Lab Results 04/06/25 19:53: WBC 11.4 H, RBC 5.46, Hgb 14.1, Hct 46.2, MCV 84.6, MCH 25.8 L, MCHC 30.5 L, RDW 15.4, Plt Count 232, MPV 8.5, Neut % (Auto) 55.4, Lymph % (Auto) 33.0, [place] % (Auto) 8.7, Eos % (Auto) 2.5, Baso % (Auto) 0.1, Neut # (Auto) 6.3, Lymph # (Auto) 3.8, [place] # (Auto) 1.0, Eos # (Auto) 0.3, Baso # (Auto) 0.0, D-Dimer 0.87 H, Sodium 142, Potassium 3.6, Chloride 105, Carbon Dioxide 28, Anion Gap 12.6, BUN 14, Creatinine 0.80, Estimated Creat Clear 87, Estimated GFR 96, Est GFR ( Amer) 117, Glucose 95, Calcium 9.7, Total Bilirubin 0.6, AST 46, ALT 53, Alkaline Phosphatase 72, Troponin I < 0.01, Total Protein 7.5, Albumin 4.6, Globulin 2.9, Albumin/Globulin Ratio 1.6, Lipase 198 04/06/25 23:00: Troponin I < 0.01 04/06/25 19:53 04/06/25 19:53 Orders (Tests/Meds): ED MEDICATIONS Discontinued Medications Generic Name Dose Route Start Last Admin Trade Name Freq PRN Reason Stop Dose Admin Albuterol/Ipratropium 9 ml 04/06/25 20:02 04/06/25 20:46 Ipratropium/Albuterol 3 Ml Neb IH 04/06/25 20:03 9 ml ONCE ONE Administration Azithromycin 500 mg 04/06/25 23:17 04/06/25 23:22 Azithromycin 250mg Tablet PO 04/06/25 23:18 500 mg ONCE ONE Administration Iopamidol 80 ml 04/06/25 21:27 04/06/25 21:28 Iopamidol-370 (76%);100ml Bottle IV 04/06/25 21:28 80 ml ONCE ONE Administration Prednisone 60 mg 04/06/25 23:17 04/06/25 23:22 Prednisone 20mg Tab PO 04/06/25 23:18 60 mg ONCE ONE Administration Sodium Chloride 40 ml 04/06/25 21:27 04/06/25 21:28 0.9 % Sodium Chloride 50 Ml Vial IV 04/06/25 21:28 40 ml ONCE ONE Administration Sodium Chloride 10 ml 04/06/25 21:27 04/06/25 21:28 Sodium Chloride 0.9% 10ml Syr (Rad Only) IV 05/06/25 21:26 10 ml NEEDED PRN Administration Maintain IV Site ORDERS Category Date Time Status CT angio chest PE protocol Stat Cat Scan 04/06/25 21:05 Completed CXR 2 view (NOT portable) [XR chest 2V] Stat Exams 04/06/25 20:02 Completed CBC w/Auto Diff [Complete Blood Count Auto Diff] Stat Lab 04/06/25 19:53 Completed CMP [Comprehensive Metabolic Panel] Stat Lab 04/06/25 19:53 Completed D-Dimer Stat Lab 04/06/25 19:53 Completed Lipase Stat Lab 04/06/25 19:53 Completed Trop I [Troponin I] Stat Lab 04/06/25 19:53 Completed Troponin I Q3H Lab 04/06/25 23:00 Completed Medical Decision Narrative: Patient is a 65-year-old gentleman with a past medical history of COPD, previous DVTs not on Eliquis anymore, heart disease who presented to the emergency department with shortness of breath. On arrival, patient was hemodynamically stable with unremarkable exam. Differential includes but not limited to: COPD exacerbation, pneumonia, ACS/IN, pulmonary embolism, amongst others. EKG was reviewed and interpreted by myself showed normal sinus rhythm at [address] or T wave changes concerning for ischemia. Patient's labs were reviewed and interpreted by myself, CBC showed mild leukocytosis. CMP is unremarkable.. Initial troponin unremarkable. Second troponin unremarkable. Patient had some wheezing on exam therefore patient was given symptomatic management for COPD. Patient's D-dimer was elevated therefore CT PE was obtained. Patient CT PE did show a subsegmental pulmonary embolism. No right heart strain. At this time, patient continues to have mild wheezing but patient was otherwise on room air. I felt that patient likely had a COPD exacerbation that the patient was sent with azithromycin and prednisone. However given patient's subsegmental PE with a history of DVTs previously on Eliquis I felt that it was reasonable and appropriate to treat patient with Eliquis again. Patient was sent with an Eliquis starter pack. Patient is on aspirin and Plavix and recommended that patient follow-up with his primary care provider in the next 2 days to manage anticoagulation. Currently on Lasix at home in stable condition. Critical Care Critical Care Time Critical Care Time: No
--- OUTSIDE RECORDS SUMMARY | 2025-04-06 19:56 | XMS_ITS | Encounter Summary ---
Author Organization [facility] Address [address] [place] [address] Care Team Providers Care Instructor Tap Dancing Name Role Phone David Pruett MD Primary Care Provider [phone] Reason for Referral * Consultation (Routine) - Authorized Specialty Diagnoses / Procedures Referred By Contac t Referred To Contact Neurology Diagnoses Brain ischemia HEADACHE PER NOTE Procedures NM OFFICE/OUTPATIENT NEW MODERATE MDM 45 MINUTES Hunter Browning PA-C [address] [place] [address] Phone: tel: [place]: [place] [address] [place] [phone] Phone: tel: fax: Referral ID Status Reason Start Date Expiration Date Visits Requested Visits Authorized [id number] Authorized Specialty Services Required 03/07/2025 06/06/2026 1 1 Encounter Details Date Type Department Care Team (Late st Contact Info) Description 03/07/2025 Results Follow-Up [facility] [address] [place] [id number] Hunter Browning PA-C [address] [place] [address] Social History Tobacco Use Types Packs/Day Years [...] on file documented as of this encounter Plan of Treatment Upcoming Encounters Date Type Department Care Team (Late st Contact Info) Description 04/18/2025 8:30 AM EDT Office Visit [facility] [address] [place] [address] David Pruett MD [address] [place] [address] 07/10/2025 10:30 AM EST Office Visit [facility] [address] [place] [address] Willard Reyes MD [address] [place] [address] 07/18/2025 9:30 AM EST Office Visit [facility] [address] [facility] [address] [place] [address] Antony Marino MD [address] [facility] [address] [place] [address] Scheduled Referrals Name Type Priority Associated Diagnoses Order Schedule Ambulatory Referral to Neurology Outpatient Referral Routine Brain ischemia Ordered: 03/07/2025 documented as of this encounter Visit Diagnoses Diagnosis Brain ischemia- Primary Other generalized ischemic cerebrovascular disease documented in this encounter Additional Health Concerns Assessment Noted Time PHQ-2 Depression Total Score: 3 04/10/20 24 12:05 PM EDT documented as of this encounter Care Teams Instructor Tap Dancing Relationship Specialty Start Date End Date David Pruett MD [address] [place] [address] PCP - General Family Medicine 05/21/18 documented as of this encounter
--- OUTSIDE RECORDS SUMMARY | 2025-04-06 19:56 | XMS_ITS | Clinical Summary ---
Author Organization [facility] Address [address] [place] [address] Care Team Providers Care Store Team Member Name Role Phone David Pruett MD Primary Care Provider [phone] Allergies No known active allergies Medications buprenorphine-na loxone (SUBOXONE) 8-2 MG per SL tablet Place 1 tablet under the tongue. PT TAKES 1.5 DAILY Active nitroglycerin (Nitrostat) 0.4 MG SL tabletIndication s:Coronary artery disease involving [place] coronary artery of [place] heart without angina pectoris Place 1 tablet under the tongue Every 5 (Five) Minutes As Needed for Chest Pain. Take no more than 3 doses in 15 minutes. 10 tablet 12 2 Active aspirin 81 MG EC tablet Take 1 tablet by mouth Daily. Active budesonide-formo terol (Symbicort) 160-4.5 MCG/ACT inhalerIndicatio ns:Simple chronic bronchitis Inhale 2 puffs 2 (Two) Times a Day. 6 g 5 4 Active isosorbide mononitrate (IMDUR) 30 MG 24 hr tablet Take 1 tablet by mouth Daily. 30 tablet 11 4 Active buPROPion SR (Wellbutrin SR) 150 MG 12 hr tabletIndication s:Personal history of tobacco use, presenting hazards to health Take 1 tablet by mouth 2 (Two) Times a Day. 120 tablet 2 5 Active bisoprolol (ZEBeta) 10 MG tabletIndication s:Primary hypertension Take 1 tablet by mouth Daily. 90 tablet 1 5 Active valsartan (Diovan) 320 MG tabletIndication s:Primary hypertension Take 1 tablet by mouth Daily. 90 tablet 1 5 Active atorvastatin (LIPITOR) 40 MG tabletIndication s:Hyperlipidemia LDL goal <70 Take 1 tablet by mouth Every Night. 90 tablet 1 5 Active apixaban (Eliquis) 5 MG tablet tabletIndication s:Acute deep vein thrombosis (DVT) of tibial vein of right lower extremity 1 tablet by mouth twice a day 60 tablet 5 5 Active Additional Information Patient not taking.Reported on 02/18/2025 albuterol sulfate HFA 108 (90 Base) MCG/ACT inhalerIndicatio ns:Simple chronic bronchitis 1-2 puffs q 4-6 hours PRN 8 g 5 5 Active amLODIPine (NORVASC) 10 MG tabletIndication s:Primary hypertension Take 1 tablet by mouth Daily. 90 tablet 1 5 Active diazePAM (Valium) 10 MG tabletIndication s:Claustrophobia 1 PO 30 minutes prior to MRI, do not drive after taking 1 tablet 5 Active predniSONE (DELTASONE) 20 MG tabletIndication s:New onset headache Take 2 tablets by mouth Daily. 10 tablet 5 Active cyclobenzaprine (FLEXERIL) 10 MG tabletIndication s:New onset headache,Tension headache 1/2-1 PO Q 12 hours PRN headache 30 tablet 5 Active acetaminophen-co deine (TYLENOL with CODEINE #3) 300-30 MG per tabletIndication s:New onset headache,Tension headache Take 1 tablet by mouth Every 6 (Six) Hours As Needed for Moderate Pain. 15 tablet 5 Active Active Problems Problem Noted Date Diagnosed Date New onset headache 02/18/2025 Assessment & Plan (02/18/2025 2:09 PM EDT): Complete STAT head CT and blood work Encouraged patient to contact Dr. Chawla who performed his procedure to discuss symptoms Encouraged patient to be seen at nearest emergency room if symptoms persist, worsen, or change Will determine next steps for management based on results of testing COPD (chronic obstructive pulmonary disease) Multiple joint pain 12/23/2020 Peripheral artery disease 06/24/2020 Overview (11/11/2021): Stent in left SFA, 12/2019 Reported abnormal lower extremity arterial ultrasound by Dr. Deleon, data deficit [place] class III claudication symptoms R = L, 2021 AARO (11/11/2021): Mild atherosclerosis bilateral lower extremities. Patent left SFA stent. Simple chronic bronchitis 02/17/2018 Coronary artery disease invo lving [place] coronary artery of [place] heart with angina pectoris 02/17/2018 Overview (11/11/2021): Previous PCI to distal RCA Cardiac catheterization (12/2017): DARWIN to mid LAD and PTCA to diagonal Cardiac catheterization (10/2018): Patient stents. Mild disease elsewhere Cardiac catheterization (11/12/2019): Moderate 1-vessel CAD (OM 2). Patent LAD stents. Tobacco use disorder 02/17/2018 Primary hypertension 02/17/2018 Overview (11/11/2021): Target blood pressure <130/80 mmHg Assessment & Plan (02/18/2025 2:08 PM EDT): Hypertension is uncontrolled Medication changes per orders. Dietary sodium restriction. Weight loss. Regular aerobic exercise. Stop smoking. Blood pressure will be reassessedin 1 week. Hyperlipidemia LDL goal <70 02/17/2018 Overview (11/11/2021): High intensity statin therapy indicated given the presence of CAD Chronic diastolic CHF (congestive heart failure) 02/17/2018 Resolved Problems Problem Noted Date Diagnosed Date Resolved Date Shortness of breath 02/15/2018 06/24/20 20 Encounters Date Type Department Care Team Description 03/07/2025 Results Follow-Up [facility] [address] [phone] Hunter Browning PA-C 03/04/2025 10:30 AM EDT Office Visit [facility] [address] [address] David Pruett MD New onset headache (Primary Dx); Tension headache 03/04/2025 Travel 02/24/2025 Telephone [facility] [address] [place] [address] David Pruett MD MEDICATION REQUEST 02/19/2025 8:22 AM EDT - 02/19/2025 11:59 PM EDT Hospital Encounter [facility] [address] [place] [address] Hunter Browning PA-C New onset headache; Altered gait Discharge Disposition: Home or Self Care 02/19/2025 Results Follow-Up [facility] [address] [place] [address] Hunter Browning PA-C 02/18/2025 10:30 AM EDT Office Visit [facility] [address] [place] [address] Hunter Browning, PA-C New onset headache (Primary Dx); Primary hypertension; Altered gait 02/18/2025 Travel from Last 3 Months Immunizations Immunization Administration Dates Next Due Flu Vaccine Quad PF >36MO 06/02/2015 Fluzone (or Fluarix & Flulav al for VFC) >6mos 07/18/2022,06/25/2021,06/24/2020,06/02 Fluzone High-Dose 65+YRS 10/18/2024 Fluzone High-Dose 65+yrs 07/19/2023 Influenza Split Preservative Free ID 06/06/2014 Influenza, Unspecified 07/18/2022 Pneumococcal Conjugate 20-Va lent (PCV20) 07/19/2023 Pneumococcal Polysaccharide (PPSV23) 05/25/2018, 08/05/2015 Family History Medical History Relation Name Comments Cancer Father Chaim Ray () Coronary artery disease Mother Alicia Ray ( ) Hyperlipidemia Mother Alicia Ray () Hypertension Mother Alicia Ray () Relation Name Status Comments Father Chaim Ray () Mother Alicia Ray () Alive Social History Tobacco Use Types Packs/Day Years Used Date Smoking Tobacco: Every Day Cigarettes 1.5 45 Smokeless Tobacco: Never Tobacco Cessation:Ready to Q uit: Not Asked; Counseling Given: Not Answered Alcohol Use Standard Drinks/Week Comments No 0 [...] file Not on file Not on file Last Filed Vital Signs Vital Sign Reading [...] Mass Index 30.06 03/04/2025 10:18 AM EDT Plan of Treatment Upcoming Encounters Date Type Department Care Team (Late st Contact Info) Description 04/18/2025 8:30 AM EDT Office Visit [facility] [address] [place] [address] David Pruett MD [address] [id number] 07/10/2025 10:30 AM EST Office Visit [facility] CARDIOLOGY [address] [place] [address] Willard Reyes MD [address] [place], [place] [id number] 07/18/2025 9:30 AM EST Office Visit [facility] [address] [facility] [address] [place] [address] Antony Marino MD [address] [facility] [address] [place] [address] Health Maintenance Due Date Last Done Comments TDAP/TD VACCINES (1 - Tdap) 1977 COLOGUARD 2003 COLON CANCER SCREENING 5 YEA R SIGMOIDOSCOPY [address] COLONOGRAPHY 2003 FECAL OCCULT BLOOD TEST 2003 FIT Testing (1 year) 2003 ZOSTER VACCINE (1 of 2) 01/03/2008 COVID-19 Vaccine (2 - 2023-2 5 season) 2024 07/14/2021 ANNUAL WELLNESS VISIT 04/10/2025 04/10/2024 , 11/08/2022, 06/25/2021, Additional history exists INFLUENZA VACCINE 05/28/2025 10/18/2024, , 07/18/2022, Additional history exists LIPID PANEL 10/18/2025 10/18/2024, 03/28, 07/19/2023, Additional history exists LUNG CANCER SCREENING 10/28/2025 10/28/2024 , 01/25/2022, 01/21/2020, Additional history exists COLONOSCOPY 12/05/2028 12/05/2018, 12/05/2018 COLORECTAL CANCER SCREENING 12/05/2028 HEPATITIS C SCREENING Completed 06/24/2020 AAA SCREEN ONCE Completed 07/19/2021, 05/0 04/2018, 12/25/2017, Additional history exists Pneumococcal Vaccine 50+ Completed 023, 05/25/2018, 08/05/2015 Procedures Procedure Name Priority Date/Time Associated Diagnosis Comments SCANNED - LABS 03/03/2025 SCANNED - LABS 03/03/2025 MRI BRAIN W WO CONTRAST Routine 03/03/[address] HEAD WO CONTRAST STAT 02/19/2025 8 :30 AM EDT New onset headache Altered gait CBC AND DIFFERENTIAL Routine 02/18/2025 11:19 AM EDT New onset headache Altered gait Primary hypertension TSH RFX ON ABNORMAL TO FREE T4 [...] New onset headache Altered gait Primary hypertension CT CHEST LOW DOSE WO CANCER SCREENING Routine 10/28/2024 10:05 AM EST Personal history of tobacco use, presenting hazards to health LIPID PANEL Routine 10/18/2024 8:54 AM EST Hyperlipidemia LDL goal <70 CT ABDOMEN PELVIS STONE PROTOCOL STAT 07/19/2021 10:15 AM EST Flank pain Lower abdominal pain HEPATITIS C ANTIBODY Routine 06/24/2020 9:46 AM EDT Encounter for hepatitis C screening test for low risk patient SCANNED - INFLUENZA 06/24/2020 SCANNED - COLONOSCOPY 12/05/2018 from Last 3 Months or Most Recently Relevant to Health Maintenance Results * LABS SCANNED (03/03/2025) Only the most recent of2 resultswithin the time period is included. David Pruett MD LAB BLOOD ORDERABLES Final Resu lt * MRI Brain With & Without Contrast (03/03/2025) Anatomical Region Laterality Modality Head, Neck N/A Magnetic Resonan ce Hunter Browning PA-C IMG MRI ORDERABLES Final Res ult * CT Head Without Contrast (02/19/2025 8:30 [...] MD 02/19/2025 8:50 AM EDT Workstation ID: [id number] Narrative 02/19/2025 8:[address] HEAD [...] expected limits for age. A few punctate thzv-LPL-edcdpqg lesions seen in the medial temporal lobes [...] within expected limits for age.A few punctate yzno-FBT-plinllw lesions seen in the medial temporal lobes [...] MD 02/19/2025 8:50 AM EDT Workstation ID: [id number] Hunter Browning PA-C IMG CT ORDERABLES Final Resu lt * TSH Rfx On Abnormal To Free T4 (02/18/2025 11:19 AM EDT) TSH 3.730 0.450 - 4.500 uIU/mL [facility] Blood 02/18/2025 11:1 9 AM EDT 02/18/2025 Narrative [facility] ([facility]) - 02/19/2025 8:11 AM EDT Performed at: [address] [place] [id number] Broadcast Supervisor: Fracnis Dale PhD, Phone: [phone] Patient Fasting: N Hunter Browning PA-C LAB BLOOD ORDERABLES Final R esult [facility] (AMBULATORY) [address] [place] [address], [facility] [address] [place] [address], * Sedimentation Rate (02/18/2025 11:19 AM EDT) [facility] Sed Rate 11 0 - 30 mm/hr [facility] Blood 02/18/2025 11:1 9 AM EDT 02/18/2025 Narrative [facility] (AMBULATORY) - 02/19/2025 8:11 AM EDT Performed at: - [address] [id number] Broadcast Supervisor: Francis Dale PhD, Phone: [phone] Patient Fasting: N Hunter Browning PA-C LAB BLOOD ORDERABLES Final R esult Performing Organization Address City/[facility]/ZIP Co de Phone Number [facility] [place] (AMBULATORY) [address] [place] [address], [facility] [address] [place] [address], * (ABNORMAL) CBC & Differential (02/18/2025 11:19 AM EDT) [facility] WBC 9.0 3.4 - 10.8 x10E3/uL [facility] [...] - 02/19/2025 8:11 AM EDT Performed at: [address] [id number] Broadcast Supervisor: Francis Dale PhD, Phone: [phone] Patient Fasting: N Hunter Browning PA-C LAB BLOOD ORDERABLES Final R esult [facility] (AMBULATORY) [address] [place] [address], [facility] [address] [place] [address], * C-reactive Protein (02/18/2025 11:19 AM EDT) [facility] C-Reactive Protein 5 0 - 10 mg/L [facility] Blood 02/18/2025 11:1 9 AM EDT 02/18/2025 Narrative [facility] ([facility]) - 02/19/2025 8:11 AM EDT Performed at: [address] [id number] Broadcast Supervisor: Francis Dale PhD, Phone: [phone] Patient Fasting: N Hunter Browning PA-C LAB BLOOD ORDERABLES Final R esult [facility] (AMB[facility]ATORY) [address] [place] [address], [place] [phone] [facility] [address] [place] [address], [place] [phone] * Comprehensive Metabolic Panel (02/18/2025 11:19 AM EDT) [facility] Glucose 75 70 - 99 mg/dL [facility] [...] 8:11 AM EDT Performed at: 01 - [facility] [address] [place], [place] [id number] Broadcast Supervisor: Francis Dale PhD, Phone: [phone] Patient Fasting: N Hunter Browning PA-C LAB BLOOD ORDERABLES Final R esult [facility] (AMBULATORY) [address] [place] [address], [place] [phone] [facility] [address] [place] [address], [place] [phone] * CT Chest Low Dose Cancer Screening WO (10/28/2024 10:05 AM EST) Anatomical Region Laterality Modality Chest Computed Tomogra phy 10/31/2024 9:13 AM EST Impressions 10/31/2024 9:17 AM EST Impression: 1. Stable exam with stable 4 mm right upper lung nodule. Recommendation: Continue annual screening with LDCT Lung Rads Assessment: Lung-RADS L2 - Benign appearance or <1% chance of malignancy. Electronically Signed: Jessie Sales MD 10/31/2024 9:17 AM EST Workstation ID: [id number] Narrative 10/31/2024 9:[address] CHEST LOW DOSE CANCER SCREENING WO Date of Exam: 10/28/2024 9:57 AM EST Indication: smoker. Comparison: CT chest 01/25/2022 Technique: Low dose CT imaging of the chest was performed without intravenous contrast enhancement. Automated exposure control and iterative reconstruction methods were used. Findings: Hilum and Mediastinum: There is stable appearance to subcentimeter calcified and noncalcified lymph nodes. Normal heart size. No pericardial effusion. Unremarkable thoracic aorta and pulmonary arteries. Heavy coronary artery calcification noted. Lung Parenchyma and Pleura: No focal consolidations. There is stable appearance to a subpleural nodule in the anterior right upper lung measuring 4 mm (image 67 of series 2). No new suspicious pulmonary nodule. No endobronchial lesions. No significant pleural effusions. Upper Abdomen: The gallbladder is surgically absent. Soft tissues: Unremarkable. Osseous structures: No aggressive focal lytic or sclerotic osseous lesions. Procedure Note Jessie Sales MD - 10/31/2024 CT CHEST LOW DOSE CANCER SCREENING WO Date of Exam: 10/28/2024 9:57 AM EST Indication: smoker. Comparison: CT chest 01/25/2022 Technique: Low dose CT imaging of the chest was performed withoutintravenous contrast enhancement. Automated exposure control anditerative reconstruction methods were used. Findings: Hilum and Mediastinum: There is stable appearance to subcentimetercalcified and noncalcified lymph nodes. Normal heart size. Nopericardial effusion. Unremarkable thoracic aorta and pulmonary arteries.Heavy coronary artery calcification noted. Lung Parenchyma and Pleura: No focal consolidations. There is stableappearance to a subpleural nodule in the anterior right upper lungmeasuring 4 mm (image 67 of series 2). No new suspicious pulmonary nodule.No endobronchial lesions. No significant pleural effusions. Upper Abdomen: The gallbladder is surgically absent. Soft tissues: Unremarkable. Osseous structures: No aggressive focal lytic or sclerotic osseouslesions. IMPRESSION: Impression: 1. Stable exam with stable 4 mm right upper lung nodule. Recommendation: Continue annual screening with LDCT Lung Rads Assessment: Lung-RADS L2 - Benign appearance or <1% chance of malignancy. Electronically Signed: Jessie Sales MD 10/31/2024 9:17 AM EST Workstation ID: [id number] David Pruett MD IM CT ORDERABLES Final Result * (ABNORMAL) Lipid Panel (10/18/2024 8:54 AM EST) Total Cholesterol 177 0 - 200 mg/dL [facility] Comment: Cholesterol Reference Ranges (U.S. Department of Health and Human Services ATP III Classifications) Desirable <200 mg/dL Borderline High 200-239 mg/dL High Risk >240 mg/dL Triglyceride Reference Ranges (U.S. Department of Health and Human Services ATP III Classifications) Normal <150 mg/dL Borderline High 150-199 mg/dL High 200-499 mg/dL Very High >500 mg/dL HDL Reference Ranges (U.S. Department of Health and Human Services ATP III Classifications) Low <40 mg/dl (major risk factor for CHD) High >60 mg/dl ('negative' risk factor for CHD) LDL Reference Ranges (U.S. Department of Health and Human Services ATP III Classifications) Optimal <100 mg/dL Near Optimal 100-129 mg/dL Borderline High 130-159 mg/dL High 160-189 mg/dL Very High >189 mg/dL LDL is calculated using the NIH LDL-C calculation. Triglycerides 194(H) 0 - 150 mg/dL [facility] HDL Cholesterol 37(L) 40 - 60 mg/dL [facility] VLDL Cholesterol Jake 34 5 - 40 mg/dL [facility] LDL Chol Calc (NIH) 106(H) 0 - 100 mg/dL [facility] Blood 10/18/2024 8:54 AM EST 10/18/2024 Narrative [facility] ([facility]ORY) - 10/18/2024 8:09 PM EST Performed at: 01 - [address] [id number] Broadcast Supervisor: Jerry Alejandra MD, Phone: [phone] Patient Fasting: Y us David Pruett MD LAB BLOOD ORDERABLES Final Resu lt [facility] (AMBULATORY) [address] [place] [address], [facility] [address] [place] [address], * CT Abdomen Pelvis Stone Protocol (07/19/2021 10:15 AM EST) Anatomical Region Laterality Modality Abdomen, Pelvis N/A Computed Tomogra phy 07/19/2021 10:3 0 AM EST Impressions 07/21/2021 4:[address] evidence of acute intra-abdominal or pelvic abnormality. E: 07/19/2021 This report was finalized on 07/21/2021 4:[address] Candida Jain MD. Narrative 07/21/2021 4:50 PM EST EXAMINATION: CT ABDOMEN AND PELVIS, STONE PROTOCOL-07/19/2021: INDICATION: Flank pain, kidney stone suspected; R10.9-Unspecified abdominal pain; R10.30-Lower abdominal pain, unspecified, renal stone. TECHNIQUE: Multiple axial CT imaging was obtained of the abdomen and pelvis without the administration of intravenous or oral contrast. The radiation dose reduction device was turned on for each scan per the ALARA (As Low as Reasonably Achievable) protocol. COMPARISON: NONE. FINDINGS: ABDOMEN: The lung bases are grossly clear. The liver is homogeneous in appearance. The spleen is unremarkable. Kidneys and adrenal glands are within normal limits. The pancreas is homogeneous. Vascular calcification seen within the abdominal aorta. Surgical clips seen from prior cholecystectomy. The pancreas is homogeneous. No abdominal or retroperitoneal lymphadenopathy. No free fluid or free air. Diverticulosis with no evidence of diverticulitis. PELVIS: The pelvic organs are unremarkable. The pelvic portions of the gastrointestinal tract are within normal limits. Diverticulosis with no evidence of diverticulitis. No free fluid or free air. The bony structures reveal degenerative changes seen within the spine and pelvis. Procedure Note Candida Jain MD - 07/21/2021 EXAMINATION: CT ABDOMEN AND PELVIS, STONE PROTOCOL-07/19/2021: INDICATION: Flank pain, kidney stone suspected; R10.9-Unspecified abdominal pain; R10.30-Lower abdominal pain, unspecified, renal stone. TECHNIQUE: Multiple axial CT imaging was obtained of the abdomen and pelvis without the administration of intravenous or oral contrast. The radiation dose reduction device was turned on for each scan per the ALARA (As Low as Reasonably Achievable) protocol. COMPARISON: NONE. FINDINGS: ABDOMEN: The lung bases are grossly clear. The liver is homogeneous in appearance. The spleen is unremarkable. Kidneys and adrenal glands are within normal limits. The pancreas is homogeneous. Vascular calcification seen within the abdominal aorta. Surgical clips seen from prior cholecystectomy. The pancreas is homogeneous. No abdominal or retroperitoneal lymphadenopathy. No free fluid or free air. Diverticulosis with no evidence of diverticulitis. PELVIS: The pelvic organs are unremarkable. The pelvic portions of the gastrointestinal tract are within normal limits. Diverticulosis with no evidence of diverticulitis. No free fluid or free air. The bony structures reveal degenerative changes seen within the spine and pelvis. IMPRESSION: No CT evidence of acute intra-abdominal or pelvic abnormality. E: 07/19/2021 This report was finalized on 07/21/2021 4:[address] Candida Jain MD. Alisha [facility] CT ORDERABLES Final Result * Hepatitis C Antibody (06/24/2020 9:46 AM EDT) Hep C Virus Ab <0.1 0.0 - 0.9 s/co ratio [facility] Comment: Negative: < 0.8 Indeterminate: 0.8 - 0.9 Positive: > 0.9 The CDC recommends that a positive HCV antibody result be followed up with a HCV Nucleic Acid Amplification test (448042). Blood 06/24/2020 9:46 AM EDT 06/24/2020 Narrative [facility] (AMBULATORY) - 06/25/2020 7:08 AM EDT Performed at: 02 - [address] [id number] Broadcast Supervisor: Francis Dale PhD, Phone: [phone] Patient Fasting: Y us David Pruett MD LAB BLOOD ORDERABLES Final Resu lt [facility] [address] [place] [address], [facility] [address] [place] [address], * SCANNED - INFLUENZA (06/24/2020) us David Pruett MD CHART REVIEW TABS Final Resu lt * SCANNED - COLONOSCOPY (12/05/2018) us David Pruett MD CHART REVIEW TABS Final Resu lt from Last 3 Months or Most Recently Relevant to [place] [address] [address] [facility] MEDICARE ADVANTAGE [facility] HMO Advance Directives * CPR (Attempt to Resuscitate) (Latest Code Status on File) Date Activated Date Inactivated Comments 11/11/2021 9:11 AM 11/11/2021 3:39 PM Question Answer Comments Code Status (Patient has no pulse and is not breathing): CPR (Attempt to Resuscitate) Medical Interventions (Patie nt has pulse or is breathing): Full Support Level Of Support Discussed With: Patient * CPR (Attempt to Resuscitate) Date Activated Date Inactivated Comments 05/21/2018 2:44 AM 05/25/2018 6:01 PM Question Answer Comments Code Status (Patient has no pulse and is not breathing): CPR (Attempt to Resuscitate) Medical Interventions (Patie nt has pulse or is breathing): Full Level Of Support Discussed With: Patient * CPR (Attempt to Resuscitate) Date Activated Date Inactivated Comments 02/15/2018 2:16 PM 02/17/2018 1:10 PM Question Answer Comments Code Status (Patient has no pulse and is not breathing): CPR (Attempt to Resuscitate) Medical Interventions (Patie nt has pulse or is breathing): Full Level Of Support Discussed With: Patient Care Teams Store Team Member Relationship Specialty Start Date End Date David Pruett MD [facility] [place] [address] PCP - General Family Medicine 05/21/18
--- OUTSIDE RECORDS SUMMARY | 2025-04-06 19:56 | XMS_ITS | Encounter Summary ---
[facility] Address [address] [place] [address] Care Team Providers Care Patent Chemist Name Role Phone David Pruett MD Primary Care Provider [phone] Reason for Referral * MRI/CAT/PET Scan (Routine) - Closed Specialty Diagnoses / Procedures Referred By Contac t Referred To Contact Diagnoses Abnormal brain CT Procedures MRI Brain With & Without Contrast Hunter Browning PA-C [address] [place] [address] Phone: tel: fax: [facility] OUT[facility]ER[facility] [address] [place] [address] Phone: tel: fax: Referral ID Status Reason Start Date Expiration Date Visits Re quested Visits Authorized Closed 02/19/2025 05/21/2026 1 1 Encounter Details Date Type Department Care Team (Late st Contact Info) Description 02/19/2025 Results Follow-Up [facility] [address] [place] [address] Hunter Browning PA-C [address] [place] [address] Social History Tobacco Use Types [...] 04/18/2025 8:30 AM EDT Office Visit [facility] [address] [place] [address] David Pruett MD [address] [place] [address] 07/10/2025 10:30 AM EST Office Visit [facility] [address] [place] [address] Willard Reyes MD [address] [place] [address] 07/18/2025 9:30 AM EST Office Visit [facility] [address] [facility] [address] [place] [address] Antony Marino MD [address] [place] [address] documented as of this encounter Results * MRI Brain With & Without Contrast (03/03/2025) Anatomical Region Laterality Modality Head, Neck N/A Magnetic Resonan ce us Hunter Browning PA-C IMG MRI ORDERABLES Final Res ult documented in this encounter Visit Diagnoses Diagnosis Abnormal brain CT- Primary Nonspecific (abnormal) findings on radiological and other examination of skull and head documented in this encounter Additional Health Concerns Assessment Noted Time PHQ-2 Depression Total Score: 3 04/10/20 24 12:05 PM EDT documented as of this encounter Care Teams Patent Chemist Relationship Specialty Start Date End Date David Pruett MD [address] [facility] [place] [address] PCP - General Family Medicine 05/21/18 documented as of this encounter
--- OUTSIDE RECORDS SUMMARY | 2025-04-06 19:56 | XMS_ITS | Encounter Summary ---
[facility] Address [address] [place] [id number] Care Team Providers Care Paediatrician Name Role Phone David Pruett MD Primary Care Provider [phone] Reason for Visit * Reason Onset Date Comments MEDICATION REQUEST 02/24/2025 Encounter Details Date Type Department Care Team (Late st Contact Info) Description 02/24/2025 Telephone [facility] [address] [place] [address] David Pruett MD [address] [place] [address] MEDICATION REQUEST Social History Tobacco Use Types Packs/Day Years [...] on file documented as of this encounter Miscellaneous Notes * Telephone Encounter - Emma Craig MA - 02/25/2025 10:21 AM EDT Pt informed and expressed understanding * Telephone Encounter - David Pruett MD - 02/25/2025 9:06 AM EDT Valium sent in for MRI * Telephone Encounter - Amanda Norton RegSched Rep - 02/24/2025 3:57 PM EDT Caller: Lukasz Ray Relationship: Self Best call back number: [phone] What medication are you requesting: VALIUM OR SOMETHING LIKE IT What are your current symptoms: CLAUSTROPHOBIA If a prescription is needed, what is your preferred pharmacy and phone number: [facility] Additional notes:THE PATIENT STATES THAT HE IS SCHEDULED TO HAVE AN MRI ON 03/03/2025 AT 8:30 THE PATIENT IS CLAUSTROPHOBIC AND WOULD LIKE TO GET A MEDICATION CALLED IN TO HELP HIM BE ABLE TO DO THE MRI documented in this encounter Plan of Treatment Upcoming Encounters Date Type Department Care Team (Late st Contact Info) Description 04/18/2025 8:30 AM EDT Office Visit [facility] [address] [place] [address] David Pruett MD [address] [place] [address] 07/10/2025 10:30 AM EST Office Visit [facility] [address] [facility] [place] [address] Willard Reyes MD [address] [facility] [address] [place], [place] [id number] 07/18/2025 9:30 AM EST Office Visit [facility] [address] [facility] [address] [place] [address] Antony Marino MD [address] [facility] [address] [place] [address] documented as of this encounter Visit Diagnoses Diagnosis Claustrophobia Other isolated or specific phobias documented in this encounter Additional Health Concerns Assessment Noted Time PHQ-2 Depression Total Score: 3 04/10/20 24 12:05 PM EDT documented as of this encounter Care Teams Paediatrician Relationship Specialty Start Date End Date David Pruett MD [address] [facility] [place], [place] [id number] PCP - General Family Medicine 05/21/18 documented as of this encounter
--- OUTSIDE RECORDS SUMMARY | 2025-04-06 19:56 | XMS_ITS | Encounter Summary ---
Author Organization [facility] Address [address] [place] [address] Care Team Providers Care Global Professional Name Role Phone David Pruett MD Primary Care Provider [phone] Encounter Details Date Type Department Care Team (Latest Contact Info) Description 02/18/2025 Travel Social History Tobacco Use Types Packs/Day Years [...] Description 04/18/2025 8:30 AM EDT Office Visit [facility] [address] [place] [address] David Pruett MD [address] [place] [address] 07/10/2025 10:30 AM EST Office Visit [facility] C[facility] [address] [place] [address] Willard Reyes MD [address] [facility] [address] [place] [address] 07/18/2025 9:30 AM EST Office Visit [facility] [address] [facility] [address] [place] [address] Antony Marino MD [address] [facility] [address] [place] [address] documented as of this encounter Visit Diagnoses Not on filedocumented in this encounter Additional Health Concerns Assessment Noted Time PHQ-2 Depression Total Score: 3 04/10/20 24 12:05 PM EDT documented as of this encounter Care Teams Global Professional Relationship Specialty Start Date End Date David Pruett MD [address] [place] [address] PCP - General Family Medicine 05/21/18 documented as of this encounter
--- OUTSIDE RECORDS SUMMARY | 2025-04-06 19:56 | XMS_ITS | Encounter Summary ---
[facility] Address [address] [place] [address] Care Team Providers Care Loan Review Manager Name Role Phone David Pruett MD Primary Care Provider [phone] Reason for Referral * Consultation (Routine) - Closed Specialty Diagnoses / Procedures Referred By Contac t Referred To Contact Neurosurgery Diagnoses Cervical disc disease with myelopathy David Pruett MD [address] [facility] [place] [address] Phone: tel: fax: [facility] [address] [address] Phone: tel: fax: Referral ID Status Reason Start Date Expiration Date V isits Requested Visits Authorized [id number] Closed Specialty Services Required 11/07/2024 02/06/2026 1 1 Encounter Details Date Type Department Care Team (Late st Contact Info) Description 11/07/2024 Results Follow-Up [facility] [address] [facility] [place] [address] David Pruett MD [address] [facility] [place] [address] Social History Tobacco Use Types [...] Description 04/18/2025 8:30 AM EDT Office Visit [facility] [address] [place] [address] David Pruett MD [address] [place] [address] 07/10/2025 10:30 AM EST Office Visit [facility] C[facility] [address] [place] [address] Willard Reyes MD [address] [facility] [address] [place] [address] 07/18/2025 9:30 AM EST Office Visit [facility] [address] [facility] [address] [place] [address] Antony Marino MD [address] [facility] [address] [place] [address] documented as of this encounter Visit Diagnoses Diagnosis Cervical disc disease with myelopathy- Primary documented in this encounter Additional Health Concerns Assessment Noted Time PHQ-2 Depression Total Score: 3 04/10/20 24 12:05 PM EDT documented as of this encounter Care Teams Loan Review Manager Relationship Specialty Start Date End Date [facility] [address] PCP - General Family Medicine 05/21/18 documented as of this encounter
--- OUTSIDE RECORDS SUMMARY | 2025-04-06 19:56 | XMS_ITS | Encounter Summary ---
Author Organization [facility] Address [address] [place] [address] Care Team Providers Care Business Systems Architect Name Role Phone David Pruett MD Primary Care Provider [phone] Encounter Details Date Type Department Care Team (Latest Contact Info) Description 03/04/2025 Travel Social History Tobacco Use Types Packs/Day [...] Description 04/18/2025 8:30 AM EDT Office Visit [facility] [address] [place] [address] David Pruett MD [address] [place] [address] 07/10/2025 10:30 AM EST Office Visit [facility] [address] [place] [address] Willard Reyes MD [address] [facility] [address] [place] [address] 07/18/2025 9:30 AM EST Office Visit [facility] [address] [facility] [address] [place] [address] Antony Marino MD [address] [facility] [address] [place] [address] documented as of this encounter Visit Diagnoses Not on filedocumented in this encounter Additional Health Concerns Assessment Noted Time PHQ-2 Depression Total Score: 3 04/10/20 24 12:05 PM EDT documented as of this encounter Care Teams Business Systems Architect Relationship Specialty Start Date End Date David Pruett MD [address] [place] [address] PCP - General Family Medicine 05/21/18 documented as of this encounter
--- OUTSIDE RECORDS SUMMARY | 2025-04-06 19:56 | XMS_ITS | Clinical Summary ---
Author Organization [facility] Address [address] [place] [address] Care Team Providers Care Brusher And Shearer Name Role Phone Unavailable Primary Care Provider Unavailabl e Social History Tobacco Use Types Packs/Day Years Used Date Smoking Tobacco: Never Assessed Sex and Gender Information Value Date Recorded Sex Assigned at Not on file Legal Sex Male 4:38 PM EST Gender Identity Not on file Sexual Orientation Not on file Plan of Treatment Health Maintenance Due Date Last Done Comments CT Colonography 1958 Colonoscopy 1958 Colorectal Cancer Screening 1960 FIT-DNA 1958 FIT 1958 FOBT 1960 Hepatitis C Screening 1960 Sigmoidoscopy 1958 Tdap/Td Vaccine >11 yo (1 - Tdap) 1977 Pneumococcal Vaccines >50 yo (1 of 1 - PCV) 01/03/2008 Shingles (Shingrix) (1 of 2) 01/03/2008 Abdominal Aortic Aneurysm (A AA) Screen 2023 Annual SDOH Screening 08/28/2024 Influenza Vaccine (#1) 2025 Haemophilus Influenzae Type B (Hib) Vaccine Aged Out No longer eligible b ased on patient's age to complete this topic Hepatitis A (HepA) Vaccine Aged Out N o longer eligible based on patient's age to complete this topic Hepatitis B (HepB) Vaccine Aged Out N o longer eligible based on patient's age to complete this topic Meningococcal ACWY Aged Out No longer eligible based on patient's age to complete this topic Polio (IPV) Aged Out No longer eligi ble based on patient's age to complete this topic Rotavirus (RV) Vaccine Aged Out No lo nger eligible based on patient's age to complete this topic
--- NOTE | 2025-04-06 20:02 | XR_ITS ---
PROCEDURE INFORMATION: Exam: XR Chest Exam date and time: 04/06/2025 8:10 PM Age: 65 years old Clinical indication: Shortness of breath; Additional info: Shorntes of breath TECHNIQUE: Imaging protocol: Radiologic exam of the chest. Views: 2 views. COMPARISON: CT LUNG SCREENING 04/22/2024 6:51 AM FINDINGS: Lungs: Unremarkable. No consolidation. Pleural spaces: Unremarkable. No pleural effusion. No pneumothorax. Heart/Mediastinum: Unremarkable. No cardiomegaly. Vasculature: Tortuous aorta. Bones/joints: Unremarkable. IMPRESSION: No acute findings.
[2025-04-06 20:08] LABS: Hematocrit 46.2 % (42.0-52.0); Hemoglobin 14.1 g/dL (14.1-18.0); Immature Granulocytes % 0.3 %; Mean Corpuscular HGB Conc 30.5 g/dL (31.8-35.4); Mean Corpuscular Hemoglobin 25.8 pg (27.0-31.2); Mean Corpuscular Volume 84.6 fl (80-94); Nucleated Red Blood Cells % 0 %; Platelet Count 232 K/mm3 (142-424); Red Blood Count 5.46 M/mm3 (4.60-6.20); Red Cell Distribution Width-SD 46.5 fL; White Blood Count 11.4 K/mm3 (4.8-10.8)
[2025-04-06 20:14] LABS: Alanine Aminotransferase 53 U/L (12-78); Albumin Level 4.6 g/dl (3.5-5.0); Albumin/Globulin Ratio 1.6 (1.1-1.8); Alkaline Phosphatase 72 U/L (38-126); Anion Gap 12.6 mEq/L (5-15); Aspartate Amino Transferase 46 U/L (17-59); Bilirubin,Total 0.6 mg/dl (0.2-1.3); Blood Urea Nitrogen 14 mg/dl (9-20); Calcium 9.7 mg/dl (8.4-10.2); Carbon Dioxide 28 mmol/L (22.0-30.0); Chloride 105 mmol/L (98-107); Creatinine Clearance Estimated 87 mL/min (50-200); Creatinine,Serum 0.80 mg/dl (0.66-1.25); Estimated Glomerular Filt Rate 96 ml/min (>60); GFR (African American) 117 ML/MIN (>60); Globulin 2.9 g/dL (1.3-3.2); Glucose 95 mg/dl (74-100); Potassium 3.6 mmoL/L (3.5-5.1); Sodium 142 mmol/L (136-145); Total Protein,Serum 7.5 g/dl (6.3-8.2)
[2025-04-06 20:18] LABS: D-Dimer 0.87 ug/mL (0.0-0.5)
[2025-04-06 20:23] LABS: Lipase 198 U/L (23-300)
[2025-04-06 20:28] LABS: Troponin I < 0.01 ng/ml (0.00-0.034)
[2025-04-06] MEDS: IPRATROPIUM/ALBUTEROL 3 ML NEB 9 ML IH (20:46)
--- NOTE | 2025-04-06 21:05 | CT_ITS ---
PROCEDURE INFORMATION: Exam: CTA Chest With Contrast Exam date and time: 04/06/2025 9:29 PM Age: 65 years old Clinical indication: Shortness of breath TECHNIQUE: Imaging protocol: Computed tomographic angiography of the chest with contrast. Exam focused on the arteries. 3D rendering (Not supervised by radiologist): MIP and/or 3D reconstructed images were created by the technologist. Radiation optimization: All CT scans at this facility use at least one of these dose optimization techniques: automated exposure control; mA and/or kV adjustment per patient size (includes targeted exams where dose is matched to clinical indication); or iterative reconstruction. Contrast material: ISOVUE; Contrast volume: 80 ml; Contrast route: INTRAVENOUS (IV); COMPARISON: CT LUNG SCREENING 04/22/2024 6:51 AM FINDINGS: Pulmonary arteries: Linear nonocclusive filling defects within the left lower lobe proximal subsegmental pulmonary arteries (series 5, images 69-75). No other definite pulmonary emboli. Aorta: Aorta is normal in course and caliber. Tortuous aorta. Mild diffuse calcific atherosclerosis of the aorta. No acute pathology in the aorta. Trachea: Airways are patent. Lungs: Subsegmental bronchial mucoid impaction in the right lower lobe. Subpleural atelectasis of the dependent portions of the lungs. No consolidations. Pleural spaces: No pleural effusions or pneumothorax. Heart: Calcifications of the aortic valve annulus. No cardiomegaly. No pericardial thickening or effusion. Heart RV/LV ratio: 0.7. Coronary arteries: There is moderate atherosclerotic calcification of the coronary arteries. Mediastinal space: Scattered calcified granulomas throughout the mediastinum are benign. Lymph nodes: No concerning adenopathy. Diaphragm: Small hiatal hernia. Bones/joints: Normal variant sternal os is present. Moderate multilevel degenerative changes of the spine. No acute skeletal abnormality or aggressive osseous lesion. Soft tissues: No acute soft tissue findings. Other findings: Right hilar calcified granulomas, benign. Left hilar calcified granulomas are benign. No acute findings in the included upper abdominal organs. IMPRESSION: 1. Linear nonocclusive filling defects within the left lower lobe proximal subsegmental pulmonary arteries (series 5, images 69-75). Suspicious for nonocclusive small pulmonary emboli versus flow related artifact. Follow-up is recommended. 2. No other definite pulmonary emboli. 3. No evidence of right heart strain with an RV/LV ratio of less than 1.
[2025-04-06] MEDS: 0.9 % SODIUM CHLORIDE 50 ML VIAL 40 ML IV (21:28)
[2025-04-06] MEDS: SODIUM CHLORIDE 0.9% 10ML SYR (RAD ONLY) 10 ML IV (21:28)
[2025-04-06] MEDS: IOPAMIDOL-370 (76%);100ML BOTTLE 80 ML IV (21:28)
[2025-04-06] MEDS: AZITHROMYCIN 250MG TABLET 500 MG PO (23:22)
[2025-04-06 23:33] LABS: Troponin I < 0.01 ng/ml (0.00-0.034)
[2025-04-07 00:09] VITALS: BP 122/62; PULSE 74; RESP 12; TEMP 36.7; O2SAT 98
== END 2025-04-07 00:19 | disposition home or self-care (01) ==
PROVIDERS: Emergency Provider Student in an Organized Health Care Education/Training Program; PCP Family Medicine
DX: R06.02 Shortness of breath (principal); I26.99 Other pulmonary embolism without acute cor pulmonale; J44.1 Chronic obstructive pulmonary disease with (acute) exacerbation; J45.901 Unspecified asthma with (acute) exacerbation; I25.10 Atherosclerotic heart disease of native coronary artery without angina pectoris; I10 Essential (primary) hypertension
CPT/HCPCS: 71046; 71275; 80053; 83690; 84484; 85025; 85378; 93005; 99285; Q9967

== ENCOUNTER 2025-06-11 12:23 | Outpatient (CLI) | payer MEDICARE, MEDICAID, SELFPAY ==
--- OUTSIDE RECORDS SUMMARY | 2025-04-18 08:30 | XMS_ITS | Encounter Summary ---
Author Organization [facility] Address [address] [place] [address] Care Team Providers Care Screen Handler Name Role Phone David Pruett MD Primary Care Provider [phone] Reason for Visit * Reason Comments Medicare Wellness-subsequent Encounter Details Date Type Department Care Team (Late st Contact Info) Description 04/18/2025 8:30 AM EDT Office Visit [facility] FAMILY MEDICINE [address] [place] [address] David Pruett MD [address] [place] [address] Medicare annual wellness visit, subsequent (Primary Dx); Primary hypertension; Hyperlipidemia LDL goal <70; Cervical disc disease; Chronic neck pain; Panlobular emphysema Social History Tobacco Use Types Packs/Day Years [...] Answer Date Recorded Patient Health Questionnaire-2 Score 1 04/18/2025 Sex and Gender Information Value Date Recorded [...] Sign Reading Time Taken Comments Blood Pressure 146/88 04/18/2025 8:08 AM EDT Pulse 92 04/18/2025 8:08 AM EDT Temperature 36.6 C (97.8 F) 04/18/2025 8:08 AM EDT Respiratory Rate 18 04/18/2025 8:08 AM EDT Oxygen Saturation 95% 04/18/2025 8:08 AM EDT Inhaled Oxygen Concentration - - Weight 85.7 kg (189 lb) 04/18/2025 8:08 AM EDT Height 170.2 cm (5' 7.01 ) 04/18/2025 8:08 AM ED T Body Mass Index 29.59 04/18/2025 8:08 AM EDT documented in this encounter Functional Status documented as of this encounter Patient Instructions * Attachments The following attachments cannot be sent through Care Everywhere. * ADVANCE CARE PLANNING AVS documented in this encounter Progress Notes * David Pruett MD - 04/18/2025 8:30 AM EDT Images from the original note were not included. Subjective The ABCs of the Annual Wellness Visit Medicare Wellness Visit Lukasz Ray is a 65 y.o. patient who presents for a Medicare Wellness Visit. The following portions of the patient's history were reviewed and updated as appropriate: allergies, current medications, past family history, past medical history, past social history, past surgical history, and problem list. Compared to one year ago, the patient's physical health is worse. Compared to one year ago, the patient's mental health is worse. Recent Hospitalizations: He was not admitted to the hospital during the last year. Current Medical Providers: Patient Care Team: David Pruett MD as PCP - General (Family Medicine) Willard Reyes MD as Consulting Physician (Cardiology) Outpatient Medications Prior to Visit Medication Sig Dispense Refill albuterol (PROVENTIL) (2.5 MG/3ML) 0.083% nebulizer solution Take 2.5 mg by nebulization Every 4 (Four) Hours As Needed for Wheezing. 100 each 12 albuterol sulfate HFA 108 (90 Base) MCG/ACT inhaler 1-2 puffs q 4-6 hours PRN 8 g 5 apixaban (Eliquis) 5 MG tablet tablet 1 tablet by mouth twice a day (Patient not taking: Reported on 02/18/2025) 60 tablet 5 aspirin 81 MG EC tablet Take 1 tablet by mouth Daily. budesonide-formoterol (Symbicort) 160-4.5 MCG/ACT inhaler Inhale 2 puffs 2 (Two) Times a Day. 6 g 5 buprenorphine-naloxone (SUBOXONE) 8-2 MG per SL tablet Place 1 tablet under the tongue. PT TAKES 1.5 DAILY isosorbide mononitrate (IMDUR) 30 MG 24 hr tablet Take 1 tablet by mouth Daily. 30 tablet 11 nitroglycerin (Nitrostat) 0.[address] 1 tablet under the tongue Every 5 (Five) Minutes As Needed for Chest Pain. Take no more than 3 doses in 15 minutes. 10 tablet 12 amLODIPine (NORVASC) 10 MG tablet Take 1 tablet by mouth Daily. 90 tablet 1 atorvastatin (LIPITOR) 40 MG tablet TAKE 1 TABLET BY MOUTH EVERY NIGHT 90 tablet 0 bisoprolol (ZEBeta) 10 MG tablet TAKE 1 TABLET BY MOUTH DAILY. 90 tablet 0 predniSONE (DELTASONE) 20 MG tablet 3 po daily 2 days then 2 po daily 3 days then 1 po daily 3 daysthen 1/2 po daily 2 days 16 tablet 0 valsartan (DIOVAN) 320 MG tablet TAKE 1 TABLET BY MOUTH DAILY. 90 tablet 0 No facility-administered medications prior to visit. Opioid medication/s are on active medication list. and I have evaluated his active treatment plan and pain score trends (see table). Vitals: 04/18/25 0808 PainSc: 9 PainLoc: Neck I have reviewed the chart for potential of high risk medication and harmful drug interactions in the elderly. Patient Active Problem List Diagnosis Simple chronic bronchitis Coronary artery disease involving [place] coronary artery of [place] heart with angina pectoris Tobacco use disorder Primary hypertension Hyperlipidemia LDL goal <70 Chronic diastolic CHF (congestive heart failure) Peripheral artery disease Multiple joint pain COPD (chronic obstructive pulmonary disease) Advance Care Planning Advance Directive is not on file. ACP discussion was held with the patient during this visit. Patient does not have an advance directive, information provided. Objective Vitals: 04/18/25 0808 BP: 146/88 Pulse: 92 Resp: 18 Temp: 97.8 ??F (36.6 ??C) SpO2: 95% Weight: 85.7 kg (189 lb) Height: 170.2 cm (67.01 ) PainSc: 9 PainLoc: Neck Estimated body mass index is 29.59 kg/m?? as calculated from the following: Height as of this encounter: 170.2 cm (67.01 ). Weight as of this encounter: 85.7 kg (189 lb). Does the patient have evidence of cognitive impairment? No Health Risk Assessment Smoking Status: Social History Tobacco Use Smoking Status Every Day Current packs/day: 1.50 Average packs/day: 1.5 packs/day for 45.0 years (67.5 ttl pk-yrs) Types: Cigarettes Smokeless Tobacco Never Alcohol Consumption: Social History Substance and Sexual Activity Alcohol Use No Fall Risk Screen STEADI Fall Risk Assessment was completed, and patient is at HIGH risk for falls. Assessment completed on:04/18/2025 Depression Screening Little interest or pleasure in doing things? Not at all (neck pain has been stressful for him) Feeling down, depressed, or hopeless? Several days PHQ-2 Total Score 1 Health Habits and Functional and Cognitive Screenin04/18/2025 8:00 AM Functional & Cognitive Status Do you have difficulty preparing food and eating? No Do you have difficulty bathing yourself, getting dressed or grooming yourself? No Do you have difficulty using the toilet? No Do you have difficulty moving around from place to place? No Do you have trouble with steps or getting out of a bed or a chair? Yes Current Diet Unhealthy Diet Dental Exam Not up to date Eye Exam Up to date Exercise (times per week) 0 times per week Current Exercises Include No Regular Exercise Do you need help using the phone? No Are you deaf or do you have serious difficulty hearing? No Do you need help to go to places out of walking distance? Yes Do you need help shopping? No Do you need help preparing meals? No Do you need help with housework? No Do you need help with laundry? No Do you need help taking your medications? No Do you need help managing money? No Do you ever drive or ride in a car without wearing a seat belt? Yes Have you felt unusual fatigue (could be tiredness), stress, anger or loneliness in the last month? Yes Who do you live with? Alone If you need help, do you have trouble finding someone available to you? No Have you been bothered in the last four weeks by sexual problems? No Do you have difficulty concentrating, remembering or making decisions? Yes Age-appropriate Screening Schedule: Refer to the list below for future screening recommendations based on patient's age, sex and/or medical conditions. Orders for these recommended tests are listed in the plan section. The patient has been provided with a written plan. Health Maintenance List Health Maintenance Topic Date Due TDAP/TD VACCINES (1 - Tdap) Never done ZOSTER VACCINE (1 of 2) Never done COVID-19 Vaccine (2 - season) 2024 INFLUENZA VACCINE 05/28/2025 LIPID PANEL 10/18/2025 LUNG CANCER SCREENING 10/28/2025 ANNUAL WELLNESS VISIT 04/18/2026 COLORECTAL CANCER SCREENING 12/05/2028 HEPATITIS C SCREENING Completed Pneumococcal Vaccine 50+ Completed AAA SCREEN ONCE Completed [facility] Preventative Services Quick Reference Risk Factors Identified During Encounter Chronic Pain: he has been seeing pain clinic, will see NS 04/21/ Depression/Dysphoria: mood worse due to ongoing neck pain Fall Risk-High or Moderate: Discussed Fall Prevention in the home Inactivity/Sedentary: Patient was advised to exercise at least 150 minutes a week per CDC recommendations. Polypharmacy: Medication List reviewed The above risks/problems have been discussed with the patient. Pertinent information has been shared with the patient in the After Visit Summary. An After Visit Summary and PPPS were made available to the patient. Follow Up: Next Medicare Wellness visit to be scheduled in 1 year. Additional E&M Note during same encounter follows: Patient has additional, significant, and separately identifiable condition(s)/problem(s) that require work above and beyond the Medicare Wellness Visit Chief Complaint Medicare Wellness-subsequent Subjective HPI Lukasz is also being seen today for additional medical problem/s. His breathing has not been doing great He had COPD exacerbation and PE recently He continues to deal with neck pain Left pain clinic for unclear reason where he had been on suboxone The injections did not help Seeing surgeon on Monday the I had referred I'm to NS in November 19 but he did not make the appointment Lukasz Ray is here for follow-up of hypertension of several years duration. He is not exercising and is not adherent to a low-salt diet. Patient does not check his blood pressure. He is compliant with meds. Lukasz Ray returns today for follow up of Hyperlipidemia Lukasz indicates his exercise level as irregularly. Diet: unchanged Patient is compliant with medications Any side effects to medications: chest pain No myalgia No memory change No Pt is due for labs Review of Systems Constitutional: Negative. Respiratory: Negative. Cardiovascular: Negative. Musculoskeletal: Positive for neck pain. Psychiatric/Behavioral: Positive for dysphoric mood. Objective Vital Signs: BP 146/88 Pulse 92 Temp 97.8 ??F (36.6 ??C) Resp 18 Ht 170.2 cm (67.01 ) Wt 85.7 kg (189 lb) SpO2 95% BMI 29.59 kg/m?? Physical Exam Vitals and nursing note reviewed. Constitutional: General: He is not in acute distress. Appearance: Normal appearance. He is well-developed. Cardiovascular: Rate and Rhythm: Normal rate and regular rhythm. Heart sounds: Normal heart sounds. Pulmonary: Effort: Pulmonary effort is normal. Breath sounds: Normal breath sounds. Musculoskeletal: Comments: Pain with movement of neck, R lateral side of ila. No significant radiculoapthy noted at this time Neurological: Mental Status: He is alert and oriented to person, place, and time. Psychiatric: Mood and Affect: Mood normal. Behavior: Behavior normal. Thought Content: Thought content normal. Judgment: Judgment normal. Assessment and Plan Diagnoses and all orders for this visit: 1. Medicare annual wellness visit, subsequent (Primary) 2. Primary hypertension - amLODIPine (NORVASC) 10 MG tablet; Take 1 tablet by mouth Daily. Dispense: 90 tablet; Refill: 1 - bisoprolol (ZEBeta) 10 MG tablet; Take 1 tablet by mouth Daily. Dispense: 90 tablet; Refill: 1 - valsartan (DIOVAN) 320 MG tablet; Take 1 tablet by mouth Daily. Dispense: 90 tablet; Refill: 1 - CBC & Differential - Comprehensive Metabolic Panel 3. Hyperlipidemia LDL goal <70 - atorvastatin (LIPITOR) 40 MG tablet; Take 1 tablet by mouth Every Night. Dispense: 90 tablet; Refill: 1 - Comprehensive Metabolic Panel - Lipid Panel 4. Cervical disc disease - HYDROcodone-acetaminophen (NORCO) 5-325 MG per tablet; Take 1 tablet by mouth Every 8 (Eight) Hours As Needed for Severe Pain. Dispense: 12 tablet; Refill: 0 5. Chronic neck pain - HYDROcodone-acetaminophen (NORCO) 5-325 MG per tablet; Take 1 tablet by mouth Every 8 (Eight) Hours As Needed for Severe Pain. Dispense: 12 tablet; Refill: 0 6. Panlobular emphysema Medicare wellness completed. Main issue he has is ongoing neck pain. Has NS appointment 04/21. Ok short term pain medicine but discussed not long term care pharmacist from us. He has failed conservative measures including injecitons and PT. Will see what surgeon says on 04/21 BP high today due to pain. Continuetriple therapy and recheck in future Continue lipitor, recheck lipids Trial of brextri for COPD instead of symbicort. Pt to let me know how this works. documented in this encounter Plan of Treatment Upcoming Encounters Date Type Department Care Team (Late st Contact Info) Description 07/10/2025 10:30 AM EST Office Visit [facility] CARDIOLOGY [address] [place] [address] Willard Reyes MD [address] [facility] [address] [address] 10/20/2025 10:00 AM EST Office Visit [facility] FAMILY MEDICINE [address] [place] [address] David Pruett MD [address] [place] [address] documented as of this encounter Procedures Procedure Name Priority Date/Time Associated Diagnosis Comments CBC AND DIFFERENTIAL Routine 04/18/2025 8:36 AM EDT Primary hypertension LIPID PANEL Routine 04/18/2025 8:36 AM EDT Hyperlipidemia LDL goal <70 COMPREHENSIVE METABOLIC PANEL Routine 04/18/2025 8:36 AM EDT Primary hypertension Hyperlipidemia LDL goal <70 documented in this encounter Results * (ABNORMAL) Lipid Panel (04/18/2025 8:36 AM EDT) Total Cholesterol 186 0 - 200 mg/dL [facility] Comment: [...] calculated using the NIH LDL-C calculation. Triglycerides 232(H) 0 - 150 mg/dL [facility] HDL Cholesterol 56 40 - 60 mg/dL [facility] VLDL Cholesterol Jake 39 5 - 40 mg/dL [facility] LDL Chol Calc (NIH) 91 0 - 100 mg/dL [facility] Blood 04/18/2025 8:36 AM EDT 04/18/2025 Narrative [facility] ([facility]) - 04/19/2025 3:07 AM EDT Performed at: [address] [id number] Sales Promotion Manager: Jerry Alejandra MD, Phone: [phone] Patient Fasting: Y us David Pruett MD LAB BLOOD ORDERABLES Final Resu lt [facility] (AMBULATORY) [address] [place] [address], [place] [phone] [facility] [address] [place] [address], * Comprehensive Metabolic Panel (04/18/2025 8:36 AM EDT) Glucose 79 65 - 99 mg/dL [facility] BUN 17.0 8.0 - 23.0 mg/dL [facility] Creatinine 1.05 0.76 - 1.27 mg/dL [facility] EGFR Result 77.8 >60.0 mL/min/1.7 3 [facility] Comment: GFR Categories in Chronic Kidney Disease (CKD) GFR Category GFR (mL/min/1.73) Interpretation G1 90 or greater Normal or high (1) G2 60-89 Mild decrease (1) G3a 45-59 Mild to moderate decrease G3b 30-44 Moderate to severe decrease G4 15-29 Severe decrease G5 14 or less Kidney failure (1)In the absence of evidence of kidney disease, neither GFR category G1 or G2 fulfill the criteria for CKD. eGFR calculation 2020 CKD-EPI creatinine equation, which does not include race as a factor BUN/Creatinine Ratio 16.2 7.0 - 25.0 [facility] Sodium 144 136 - 145 mmol/L [facility] Potassium 4.2 3.5 - 5.2 mmol/L [facility] Chloride 102 98 - 107 mmol/L [facility] Total CO2 25.7 22.0 - 29.0 mmol/L [facility] Calcium 10.0 8.6 - 10.5 mg/dL [facility] Total Protein 6.7 6.0 - 8.5 g/dL [facility] Albumin 4.4 3.5 - 5.2 g/dL [facility] Globulin 2.3 gm/dL [facility] A/G Ratio 1.9 g/dL [facility] Total Bilirubin 0.2 0.0 - 1.2 mg/dL [facility] Alkaline Phosphatase 74 39 - 117 U/L [facility] AST (SGOT) 16 1 - 40 U/L [facility] ALT (SGPT) 22 1 - 41 U/L [facility] Blood 04/18/2025 8:36 AM EDT 04/18/2025 Narrative [facility] ([facility]) - 04/19/2025 3:07 AM EDT Performed at: [address] [place] [address] [place] [id number] Sales Promotion Manager: Jerry Alejandra MD, Phone: [phone] Patient Fasting: Y David Pruett MD LAB BLOOD ORDERABLES Final Resu lt [facility] ([facility]) [address] [place] [address], [facility] [address] [place] [address], * (ABNORMAL) CBC & Differential (04/18/2025 8:36 AM EDT) WBC 19.38(H) 3.40 - 10.80 10*3/mm3 [facility] RBC 5.51 4.14 - 5.80 10*6/mm3 [facility] Hemoglobin 14.6 13.0 - 17.7 g/dL [facility] Hematocrit 46.0 37.5 - 51.0 % [facility] MCV 83.5 79.0 - 97.0 fL [facility] MCH 26.5(L) 26.6 - 33.0 pg [facility] MCHC 31.7 31.5 - 35.7 g/dL [facility] RDW 14.5 12.3 - 15.4 % [facility] Platelets 243 140 - 450 10*3/mm3 [facility] Neutrophil Rel % 59.5 42.7 - 76.0 % [facility] Lymphocyte Rel % 31.1 19.6 - 45.3 % [facility] Monocyte Rel % 7.0 5.0 - 12.0 % [facility] Eosinophil Rel % 0.9 0.3 - 6.2 % [facility] Basophil Rel % 0.2 0.0 - 1.5 % [facility] Neutrophils Absolute 11.54(H) 1.70 - 7.00 10*3/mm3 [facility] Lymphocytes Absolute 6.02(H) 0.70 - 3.10 10*3/mm3 [facility] Monocytes Absolute 1.36(H) 0.10 - 0.90 10*3/mm3 [facility] Eosinophils Absolute 0.18 0.00 - 0.40 10*3/mm3 [facility] Basophils Absolute 0.03 0.00 - 0.20 10*3/mm3 [facility] Immature Granulocyte Rel % 1.3(H) 0.0 - 0.5 % [facility] Immature Grans Absolute 0.25(H) 0.00 - 0.05 10*3/mm3 [facility] nRBC 0.2 0.0 - 0.2 /100 WBC [facility] Blood 04/18/2025 8:36 AM EDT 04/18/2025 Narrative [facility] ([facility]) - 04/19/2025 3:07 AM EDT Performed at: [address] [place] [id number] Sales Promotion Manager: Jerry Alejandra MD, Phone: [phone] Patient Fasting: Y us David Pruett MD LAB BLOOD ORDERABLES Final Resu lt [facility] ([facility]) [address] [place] [address], [place] [phone] [facility] [address] [place] [address], [place] [phone] documented in this encounter Visit Diagnoses Diagnosis Medicare annual wellness visit, subsequent- Primary Primary hypertension Unspecified essential hypertension Hyperlipidemia LDL goal <70 Other and unspecified hyperlipidemia Cervical disc disease Chronic neck pain Cervicalgia Panlobular emphysema Other emphysema documented in this encounter Additional Health Concerns Assessment Noted Time PHQ-2 Depression Total Score: 3 04/10/20 24 12:05 PM EDT documented as of this encounter Care Teams Screen Handler Relationship Specialty Start Date End Date David Pruett MD [address] [place] [address] PCP - General Family Medicine 05/21/18 documented as of this encounter
--- OUTSIDE RECORDS SUMMARY | 2025-04-23 10:40 | XMS_ITS | Encounter Summary ---
[facility] Organization [facility] Address [address] [place] [address] Care Team Providers Care Entrepreneur Name Role Phone David Pruett MD Primary Care Provider [phone] Encounter Details Date Type Department Care Team (Late st Contact Info) Description 04/23/2025 10:40 AM EDT Lab [facility] FAMILY MEDICINE [address] [place] [address] Social History Tobacco Use Types Packs/Day Years [...] Description 07/10/2025 10:30 AM EST Office Visit [facility] CARDIOLOGY [address] [place] [address] Willard Reyes MD [address] [place] [address] 10/20/2025 10:00 AM EST Office Visit [facility] [address] [place] [address] David Pruett MD [address] [place] [address] documented as of this encounter Visit Diagnoses Not on filedocumented in this encounter Additional Health Concerns Assessment Noted Time PHQ-2 Depression Total Score: 3 04/10/20 24 12:05 PM EDT documented as of this encounter Care Teams Entrepreneur Relationship Specialty Start Date End Date David Pruett MD [address] [place] [address] PCP - General Family Medicine 05/21/18 documented as of this encounter
--- OUTSIDE RECORDS SUMMARY | 2025-05-13 06:59 | XMS_ITS | Continuity of Care Document ---
Author Organization [facility] Phone Care Team Providers Care Hardware Sales Assistant Name Role Phone MELVA ALCALA Admitting MELVA ALCALA Primary Attending MELVA ALCALA Unavailable KARL AGUILA Primary Care ALLERGIES AND ADVERSE REACTIONS ALLERGIES AND ADVERSE REACTIONS Code System Allergy Substance Adverse Reaction Date Reaction (Severity) Comment Status Reported By Updated By No Known Allergies [id number] on February 05, 2025 12:14:01 PM [facility] FAMILY HISTORY RELATION: Father Status: Cause [...] RXNORM NDC Medication Dose Route Frequency Dates Dis pense Data Comments Physician Updated By No Discharge Medication Info rmation Available INPATIENT MEDICATIONS Status RXNORM NDC Medication Dose Route Frequency Rat e Quantity Dates Indication Dispense Data Comments Physician Updated By No Inpatient Medication Info rmation Available SOCIAL HISTORY SOCIAL HISTORY - Smoking Status SNOMED-CT Social History Element Description Effective Dates Offered Cessation Comment Updated By [id number] Historical Tobacco smoking status Current Every Day Smoker 1 PPD [id number] on December 14, 2018 3:07:04 PM [facility] SOCIAL HISTORY - Gender Sex: Male SOCIAL HISTORY - Status : status i nformation is not available Intention in Next Year: intention information is not available SOCIAL HISTORY - Assessments Code System Description Status Date Value of Assessment Updated By Comment Assessment Information is no t available SOCIAL HISTORY - [place] Affiliation [place] information is not av ailable SOCIAL HISTORY - Legal Sex Legal Sex information is not available SOCIAL HISTORY - Sexual Behavior Sexual Orientation Gender Identity SNOMED-CT Description SNO MED -CT Description Activity Level No of Partners Partner Type UpdatedBy Information is not available SOCIAL HISTORY - Occupation Occupation information is no t available HEALTH CONCERNS Problems Concern Status Health Concern problem infor mation not available. Smoking Status Status Years Used Consumed packs p er day Health Concern smoking histo ry information not available. Family History Concern Status Health Concern family histor y information not available. ENCOUNTERS ENCOUNTER INFORMATION Reason for Visit OV Admission May 05, 2025 12:53:00 PM [place] [facility] [address] [address] Discharge May 05, 2025 12:53:00 PM [facility] C DISCHARGED TO HOME OR SELF CARE ENCOUNTER DIAGNOSES Notes information is not ada ilable. Code System Diagnosis Onset Date Diagnosis information is not available. ABSTRACT DIAGNOSES Code System Diagnosis Updated By Abatement Date G89.29 ICD10 OTHER CHRONIC PAIN [id number] o n May 13, 2025 10:59:32 AM UT M54.2 ICD10 CERVICALGIA [id number] on Apr 10:59:32 AM UTC M62.838 ICD10 OTHER MUSCLE SPASM [id number] o n May 13, 2025 10:59:32 AM UTC M48.02 ICD10 SPINAL STENOSIS, CERVICAL REGION [id number] on May 13, 2025 10:59:32 AM UTC G24.3 ICD10 SPASMODIC TORTICOLLIS [id number] on May 13, 2025 10:59:32 AM UTC M50.30 ICD10 OTHER CERVICAL D ISC DEGENERATION, UNSPECIFIED CERVICAL REGION [id number] on May 13, 2025 10:59:32 AM UTC M54.12 ICD10 RADICULOPATHY, CERVICAL MAGDA ON [id number] on May 13, 2025 10:59:32 AM UTC M47.812 ICD10 SPONDYLOSIS WITH OUT MYELOPATHY OR RADICULOPATHY, CERVICAL REGION [id number] on May 13, 2025 10:59:32 AM UTC R20.2 ICD10 PARESTHESIA OF SKIN [id number] on May 13, 2025 10:59:32 AM UTC M79.18 ICD10 MYALGIA, OTHER SITE [id number] on May 13, 2025 10:59:32 AM UTC R51.9 ICD10 HEADACHE, UNSPECIFIED [id number] on May 13, 2025 10:59:32 AM UTC M54.81 ICD10 OCCIPITAL NEURALGIA [id number] on May 13, 2025 10:59:32 AM UTC I10 ICD10 ESSENTIAL (PRIMA RY) HYPERTENSION [id number] on May 13, 2025 10:59:32 AM UTC E78.5 ICD10 HYPERLIPIDEMIA, UNSPECIFIED [id number] on May 13, 2025 10:59:32 AM UTC I82.441 ICD10 ACUTE EMBOLISM A ND THROMBOSIS OF RIGHT TIBIAL VEIN [id number] on May 13, 2025 10:59:32 AM UTC F17.200 ICD10 NICOTINE DEPENDE NCE, UNSPECIFIED, UNCOMPLICATED [id number] on May 13, 2025 10:59:32 AM UT CARE TEAM Care Hardware Sales Assistant Role MELVA ALCALA Admitting MELVA ALCALA Primary Attending MELVA ALCALA Referring KARL AGUILA Primary Care CARE TEAM CARE project admin Role on Team Location Telecom Status Start Date End Joe e Updated By MINGO MORROW PCP normal May 05, 2025 4:00:00 AM [facility] May 05, 2025 12:53:00 PM UT [id number] on May 05, 2025 12:53:53 PM UT CARI MORROW Referring normal May 05, 2025 4:00:00 AM [facility] May 05, 2025 12:53:00 PM UT [id number] on May 05, 2025 12:53:53 PM [facility] CARI MORROW Attending normal May 05, 2025 4:00:00 AM [facility] May 05, 2025 12:53:00 PM UT [id number] on May 05, 2025 12:53:53 PM [facility] CARI MORROW Admitting normal May 05, 2025 4:00:00 AM [facility] May 05, 2025 12:53:00 PM UT [id number] on May 05, 2025 12:53:53 PM [facility]
--- NOTE | 2025-06-11 12:25 | MR_ITS ---
FINAL REPORT TECHNIQUE: Multiplanar and multisequence imaging of the brain was obtained before and after contrast injection. CLINICAL HISTORY: headache, neck pain COMPARISON: Prior examination not available. FINDINGS: Atrophy is noted with associated ex vacuo dilatation of the ventricles. There is no mass effect or midline shift. Small foci of periventricular and subcortical white matter are nonspecific. No hydrocephalus. The cerebellum and brainstem have an unremarkable appearance. There are no areas of restricted diffusion on diffusion weighted images to suggest acute infarct. There is a mucous retention cyst or polyp present in the right maxillary sinus. No acute soft tissue abnormality is identified. Post contrast images reveal no pathologic contrast enhancement. IMPRESSION: No acute intracranial abnormality and no pathologic contrast enhancement. Periventricular and subcortical T2 abnormality, likely related to changes of chronic small vessel ischemia, although other etiologies are not excluded. Reviewed, Interpreted and Dictated by Samreen Damian MD Transcribed by Amber Blackwood Authenticated and [facility]
--- OUTSIDE RECORDS SUMMARY | 2025-06-11 12:26 | XMS_ITS | Encounter Summary ---
[facility] Address [address] [place] [id number] Care Team Providers Care Linux Devops Engineer Name Role Phone David Pruett MD Primary Care Provider [phone] Reason for Visit * Reason Comments Med Refill Encounter Details Date Type Department Care Team (Late st Contact Info) Description 05/20/2025 Refill [facility] [address] [place] [address] David Pruett MD [address] [place] [address] Simple chronic bronchitis Social History Tobacco Use Types Packs/Day Years [...] Description 07/10/2025 10:30 AM EST Office Visit [facility] [address] [place] [address] Willard Reyes MD [address] [facility] [address] [place] [address] 10/20/2025 10:00 AM EST Office Visit [facility] [address] [place] [address] David Pruett MD [address] [place] [address] documented as of this encounter Visit Diagnoses Diagnosis Simple chronic bronchitis documented in this encounter Additional Health Concerns Assessment Noted Time PHQ-2 Depression Total Score: 3 04/10/20 24 12:05 PM EDT documented as of this encounter Care Teams Linux Devops Engineer Relationship Specialty Start Date End Date David Pruett MD [address] [place] [address] PCP - General Family Medicine 05/21/18 documented as of this encounter
--- OUTSIDE RECORDS SUMMARY | 2025-06-11 12:26 | XMS_ITS | Encounter Summary ---
[facility] Address [address] [place] [id number] Care Team Providers Care Greek Professor Name Role Phone David Pruett MD Primary Care Provider [phone] Encounter Details Date Type Department Care Team (Late st Contact Info) Description 04/25/2025 Results Follow-Up [facility] [address] [facility] [place] [address] David Pruett MD [address] [place] [address] Social History Tobacco Use Types [...] Description 07/10/2025 10:30 AM EST Office Visit [facility] [address] [place] [address] Willard Reyes MD [address] [place] [address] 10/20/2025 10:00 AM EST Office Visit [facility] [address] [place] [address] David Pruett MD [address] [place] [address] documented as of this encounter Visit Diagnoses Not on filedocumented in this encounter Additional Health Concerns Assessment Noted Time PHQ-2 Depression Total Score: 3 04/10/20 24 12:05 PM EDT documented as of this encounter Care Teams Greek Professor Relationship Specialty Start Date End Date David Pruett MD [address] [place] [address] PCP - General Family Medicine 05/21/18 documented as of this encounter
--- OUTSIDE RECORDS SUMMARY | 2025-06-11 12:26 | XMS_ITS | Encounter Summary ---
[facility] Address [address] [place] [address] Care Team Providers Care Yard Rigger Name Role Phone David Pruett MD Primary Care Provider [phone] Reason for Visit * Reason Comments Med Refill Encounter Details Date Type Department Care Team (Late st Contact Info) Description 05/20/2025 Refill [facility] [address] [place] [address] [place] [address] Willard Reyes MD [address] [facility] [place] [address] Med Refill Social History Tobacco Use Types Packs/Day Years [...] Description 07/10/2025 10:30 AM EST Office Visit [facility] [address] [place] [address] Willard Reyes MD [address] [facility] [address] [place] [address] 10/20/2025 10:00 AM EST Office Visit [facility] [address] [place] [address] David Pruett MD [address] [place] [address] documented as of this encounter Visit Diagnoses Not on filedocumented in this encounter Additional Health Concerns Assessment Noted Time PHQ-2 Depression Total Score: 3 04/10/20 24 12:05 PM EDT documented as of this encounter Care Teams Yard Rigger Relationship Specialty Start Date End Date David Pruett MD [address] [place] [address] PCP - General Family Medicine 05/21/18 documented as of this encounter
--- OUTSIDE RECORDS SUMMARY | 2025-06-11 12:26 | XMS_ITS | Clinical Summary ---
Author Organization [facility] Address [address] [place] [address] Care Team Providers Care Business Services Manager Name Role Phone David Pruett MD Primary Care Provider [phone] Allergies No known active allergies Medications buprenorphine-n aloxone (SUBOXONE) 8-2 MG per SL tablet Place 1 tablet under the tongue. PT TAKES 1.5 DAILY Active nitroglycerin (Nitrostat) 0.4 MG SL tabletIndicatio ns:Coronary artery disease involving [place] coronary artery of [place] heart without angina pectoris Place 1 tablet under the tongue Every 5 (Five) Minutes As Needed for Chest Pain. Take no more than 3 doses in 15 minutes. 10 tablet 10/27/19 22 Active aspirin 81 MG EC tablet Take 1 tablet by mouth Daily. Active apixaban (Eliquis) 5 MG tablet tabletIndicatio ns:Acute deep vein thrombosis (DVT) of tibial vein of right lower extremity 1 tablet by mouth twice a day 60 tablet 10/18/19 25 Active Additional Information Patient not taking.Reported on 02/18/2025 albuterol sulfate HFA 108 (90 Base) MCG/ACT inhalerIndicati ons:Simple chronic bronchitis 1-2 puffs q 4-6 hours PRN 8 g 10/18/19 25 Active albuterol (PROVENTIL) (2.5 MG/3ML) 0.083% nebulizer solutionIndicat ions:COPD with exacerbation Take 2.5 mg by nebulization Every 4 (Four) Hours As Needed for Wheezing. 100 each 04/09/20 25 Active amLODIPine (NORVASC) 10 MG tabletIndicatio ns:Primary hypertension Take 1 tablet by mouth Daily. 90 tablet 1 04/18/20 25 Active bisoprolol (ZEBeta) 10 MG tabletIndicatio ns:Primary hypertension Take 1 tablet by mouth Daily. 90 tablet 1 04/18/20 25 Active valsartan (DIOVAN) 320 MG tabletIndicatio ns:Primary hypertension Take 1 tablet by mouth Daily. 90 tablet 1 04/18/20 25 Active atorvastatin (LIPITOR) 40 MG tabletIndicatio ns:Hyperlipidem ia LDL goal <70 Take 1 tablet by mouth Every Night. 90 tablet 1 04/18/20 25 Active HYDROcodone-niharika taminophen (NORCO) 5-325 MG per tabletIndicatio ns:Cervical disc disease,Chronic neck pain Take 1 tablet by mouth Every 8 (Eight) Hours As Needed for Severe Pain. 12 tablet 04/18/20 25 Active Symbicort 160-4.5 MCG/ACT inhalerIndicati ons:Simple chronic bronchitis INHALE TWO PUFFS BY MOUTH TWICE DAILY --RINSE MOUTH AFTER USE-- 10.2 g 2 05/20/20 25 Active isosorbide mononitrate (IMDUR) 30 MG 24 hr tablet TAKE 1 TABLET BY MOUTH ONCE DAILY 30 tablet 5 05/20/20 25 Active budesonide-form oterol (Symbicort) 160-4.5 MCG/ACT inhalerIndicati ons:Simple chronic bronchitis Inhale 2 puffs 2 (Two) Times a Day. 6 g 04/10/20 24 2024 Discontinued isosorbide mononitrate (IMDUR) 30 MG 24 hr tablet Take 1 tablet by mouth Daily. 30 tablet 04/18/20 24 2024 Discontinued Active Problems Problem Noted Date Diagnosed Date COPD (chronic obstructive pulmonary disease) Multiple joint pain 12/23/2020 Peripheral artery disease 06/24/2020 Overview (11/11/2021): Stent in left SFA, 12/2019 Reported abnormal lower extremity arterial ultrasound by Dr. Deleon, data deficit [place] class III claudication symptoms R = L, 2021 AARO (11/11/2021): Mild atherosclerosis bilateral lower extremities. Patent left SFA stent. Simple chronic bronchitis 02/17/2018 Coronary artery disease invo lving [place] coronary artery of [place] heart with angina pectoris 02/17/2018 Overview (11/11/2021): [...] Problem Noted Date Diagnosed Date Resolved Date New onset headache 02/18/2025 5 Assessment & Plan (02/18/2025 2:09 PM EDT): Complete STAT head CT and blood work Encouraged patient to contact Dr. Chawla who performed his procedure to discuss symptoms Encouraged patient to be seen at nearest emergency room if symptoms persist, worsen, or change Will determine next steps for management based on results of testing Shortness of breath 02/15/2018 06/24/20 20 Encounters Date Type Department Care Team Description 05/20/2025 Refill [facility] [address] [facility] [place] [address] Willard Reyes MD Med Refill 05/20/2025 Refill [facility] [address] [facility] [place] [address] David Pruett MD Simple chronic bronchitis 05/19/2025 External PBMM Data [facility] [address] [place] [address] Pharmacy, Payor Data 04/25/2025 Results Follow-Up [facility] [address] [place], [place] [address] David Pruett MD 04/23/2025 10:40 AM EDT Lab [facility] [address] [place], [place] [address] 04/23/2025 Travel 04/20/2025 Results Follow-Up [facility] [address] [place], [place] [address] David Pruett MD 04/18/2025 8:30 AM EDT Office Visit [facility] [address] [place] [address] David Pruett MD Medicare annual wellness visit, subsequent (Primary Dx); Primary hypertension; Hyperlipidemia LDL goal <70; Cervical disc disease; Chronic neck pain; Panlobular emphysema 04/18/2025 Travel 04/09/2025 11:15 AM EDT Office Visit [facility] [address] [place] [address] David Pruett MD COPD with exacerbation (Primary Dx); Shortness of breath; Acute pulmonary embolism without acute cor pulmonale, unspecified pulmonary embolism type 04/09/2025 Travel 04/07/2025 Refill [facility] [address] [place] [address] David Pruett MD Hyperlipidemia LDL goal <70; Primary hypertension from Last 3 Months Immunizations Immunization Administration [...] Mass Index 29.59 04/18/2025 8:08 AM EDT Plan of Treatment Upcoming Encounters Date Type Department Care Team (Late st Contact Info) Description 07/10/2025 10:30 AM EST Office Visit [facility] [address] [place] [address] Willard Reyes MD [address] [facility] [address] [address] 10/20/2025 10:00 AM EST Office Visit [facility] [address] [place] [address] David Pruett MD [address] [place] [address] Health Maintenance Due Date Last Done Comments TDAP/TD VACCINES (1 - Tdap) 1977 COLOGUARD 2003 COLON CANCER SCREENING 5 YEA R SIGMOIDOSCOPY 2003 [address] COLONOGRAPHY 2003 FECAL OCCULT BLOOD TEST 2003 FIT Testing (1 year) 2003 ZOSTER VACCINE (1 of 2) 01/03/2008 INFLUENZA VACCINE 03/28/2025 10/18/2024, , 07/18/2022, Additional history exists COVID-19 Vaccine (2 - 2024- 6 season) 2025 07/14/2021 LUNG CANCER SCREENING 10/28/2025 10/28/2024 , 01/25/2022, 01/21/2020, Additional history exists ANNUAL WELLNESS VISIT 04/18/2026 04/18/2025 , 04/10/2024, 11/08/2022, Additional history exists LIPID PANEL 04/18/2026 04/18/2025, 09/29, 04/10/2024, Additional history exists COLONOSCOPY 12/05/2028 12/05/2018, 12/05/2018 COLORECTAL CANCER SCREENING 12/05/2028 HEPATITIS C SCREENING Completed 06/24/2020 Pneumococcal Vaccine 50+ Completed 023, 05/25/2018, 08/05/2015 AAA SCREEN ONCE Completed 04/06/2025, 06/29, 01/03/2018, Additional history exists Procedures Procedure Name Priority Date/Time Associated Diagnosis Comments CBC AND DIFFERENTIAL Routine 04/23/2025 10:51 AM EDT Leukocytosis, unspecified type CBC AND DIFFERENTIAL Routine 04/18/2025 8:36 AM EDT Primary hypertension LIPID PANEL Routine 04/18/2025 8:36 AM EDT Hyperlipidemia LDL goal <70 COMPREHENSIVE METABOLIC PANEL Routine 04/18/2025 8:36 AM EDT Primary hypertension Hyperlipidemia LDL goal <70 SCANNED EKG 04/06/2025 SCANNED - IMAGING 04/06/2025 SCANNED - IMAGING 04/06/2025 SCANNED - IMAGING 04/06/2025 CT CHEST LOW DOSE WO CANCER SCREENING Routine 10/28/2024 10:05 AM EST Personal history of tobacco use, presenting hazards to health CT ABDOMEN PELVIS STONE PROTOCOL STAT 07/19/2021 10:15 AM EST Flank pain Lower abdominal pain HEPATITIS C ANTIBODY Routine 06/24/2020 9:46 AM EDT Encounter for hepatitis C screening test for low risk patient SCANNED - INFLUENZA 06/24/2020 SCANNED - COLONOSCOPY 12/05/2018 from Last 3 Months or Most Recently Relevant to Health Maintenance Results * (ABNORMAL) CBC & Differential (04/23/2025 10:51 AM EDT) Only the most recent of2 resultswithin the time period is included. WBC 12.7(H) 3.4 - 10.8 x10E3/uL [facility] RBC 4.73 4.14 - 5.80 x10E6/uL [facility] Hemoglobin 12.7(L) 13.0 - 17.7 g/dL [facility] Hematocrit 39.9 37.5 - 51.0 % [facility] MCV 84 79 - 97 fL [facility] MCH 26.8 26.6 - 33.0 pg [facility] MCHC 31.8 31.5 - 35.7 g/dL [facility] RDW 14.9 11.6 - 15.4 % [facility] Platelets 177 150 - 450 x10E3/uL [facility] Neutrophil Rel % 71 Not Estab. % [facility] Lymphocyte Rel % 18 Not Estab. % [facility] Monocyte Rel % 9 Not Estab. % [facility] Eosinophil Rel % 1 Not Estab. % [facility] Basophil Rel % 0 Not Estab. % [facility] Neutrophils Absolute 9.0(H) 1.4 - 7.0 x10E3/uL [facility] Lymphocytes Absolute 2.3 0.7 - 3.1 x10E3/uL [facility] Monocytes Absolute 1.2(H) 0.1 - 0.9 x10E3/uL [facility] Eosinophils Absolute 0.1 0.0 - 0.4 x10E3/uL [facility] Basophils Absolute 0.0 0.0 - 0.2 x10E3/uL [facility] Immature Granulocyte Rel % 1 Not Estab. % [facility] Immature Grans Absolute 0.1 0.0 - 0.1 x10E3/uL [facility] Blood 04/23/2025 10:5 1 AM EDT 04/23/2025 Narrative [facility] ([facility]) - 04/24/2025 8:12 AM EDT [facility]formed at: [facility] [address] [place] [id number] Behavioral Therapy Coordinator: Francis Dale PhD, Phone: [phone] Patient Fasting: N us David Pruett MD LAB BLOOD ORDERABLES Final Resu lt [facility] (AMBULATORY) [address] [place] [address], [facility] [address] [place] [address], * (ABNORMAL) Lipid Panel (04/18/2025 8:36 AM EDT) [facility] Total Cholesterol 186 0 - 200 mg/dL [...] - 04/19/2025 3:07 AM EDT Performed at: [address] [place] [id number] Behavioral Therapy Coordinator: Jerry Alejandra MD, Phone: [phone] Patient Fasting: Y us David Pruett MD LAB BLOOD ORDERABLES Final Resu lt [facility] (AMBULATORY) [address] [place] [id number], [facility] [address] [place] [address], * Comprehensive Metabolic Panel (04/18/2025 8:36 AM EDT) [facility] Glucose 79 65 - 99 mg/dL [facility] [...] LAB Blood 04/18/2025 8:36 AM EDT 04/18/2025 [facility] ([facility]) - 04/19/2025 3:07 AM EDT Performed at: 01 - [facility] [address], [place], [place] [id number] Behavioral Therapy Coordinator: Jerry Alejandra MD, Phone: [phone] Patient Fasting: Y us David Pruett MD LAB BLOOD ORDERABLES Final Resu lt [facility] (AMBULATORY) [address] [place] [address], [place] [phone] [facility] [address] [place] [address], [place] [phone] * ECG Scan (04/06/2025) us David Pruett MD ECG ORDERABLES Final Result * IMAGING SCANNED (04/06/2025) Only the most recent of3 resultswithin the time period is included. Anatomical Region Laterality Modality Radiographic Shea ging us David Pruett MD IMG DIAGNOSTIC IMAGING ORDERABL ES Final Result * CT Chest Low Dose Cancer Screening [...] MD 10/31/2024 9:17 AM EST Workstation ID: [id number] Narrative 10/31/2024 9:[address] CHEST [...] MD 10/31/2024 9:17 AM EST Workstation ID: [id number] us David Pruett MD [facility] CT ORDERABLES Final Result * CT Abdomen Pelvis Stone Protocol (07/19/2021 [...] by Dr. Candida Jain MD. Alisha WAN IMG CT ORDERABLES Final Result * Hepatitis C Antibody (06/24/2020 9:46 AM EDT) Pathologist [facility] Hep C Virus Ab <0.1 0.0 - 0.9 s/co ratio [facility] Comment: Negative: < 0.8 Indeterminate: 0.8 - 0.9 Positive: > 0.9 The CDC recommends that a positive HCV antibody result be followed up with a HCV Nucleic Acid Amplification test ([id number]). Blood 06/24/2020 9:46 AM EDT 06/24/2020 Narrative [facility] [place] (AMBULATORY) - 06/25/2020 7:08 AM EDT Performed at: 02 - [address] [id number] Behavioral Therapy Coordinator: Francis Dale PhD, Phone: [phone] Patient Fasting: Y Result [facility] David Pruett MD LAB BLOOD ORDERABLES Final Resu lt [facility] [place] (AMBULATORY) [address] [place] [address], [place] [phone] [facility] [address] [place] [address], [place] [phone] * SCANNED - INFLUENZA (06/24/2020) Result [facility] David Pruett MD CHART REVIEW TABS Final Resu lt * SCANNED - COLONOSCOPY (12/05/2018) us David Pruett MD CHART REVIEW TABS Final Resu lt from Last 3 Months or Most Recently Relevant to Health Maintenance Insurance [employer] MEDICARE [employer]VANTAGE SNP HMO Advance Directives * CPR (Attempt to [...] Of Support Discussed With: Patient Care Teams Business Services Manager Relationship Specialty Start Date End Date David Pruett MD [address] [facility] [address] [place] [address] PCP - General Family Medicine 05/21/18
--- OUTSIDE RECORDS SUMMARY | 2025-06-11 12:26 | XMS_ITS | Encounter Summary ---
[facility] Address [address] [place] [id number] Care Team Providers Care Rickshaw Driver Name Role Phone David Pruett MD Primary Care Provider [phone] Encounter Details Date Type Department Care Team (Late st Contact Info) Description 04/20/2025 Results Follow-Up [facility] FAMILY [facility]IC[facility] [address] [facility] [place] [address] David Pruett MD [address] [facility] [place] [address] Social History Tobacco Use Types [...] AM EST Office Visit [facility] CARDIOLOGY [address] [place] [address] Willard Reyes MD [address] [place] [address] [place] [address] 10/20/2025 10:00 AM EST Office Visit [facility] FAM[facility] [address] [place] [address] David Pruett MD [address] [place] [address] documented as of this encounter Results * (ABNORMAL) CBC & Differential (04/23/2025 10:51 AM EDT) WBC 12.7(H) 3.4 - 10.8 x10E3/uL [facility] [...] 04/24/2025 8:12 AM EDT Performed at: - [facility] [address] [place] [id number] Key Bed Installer: Francis Dale PhD, Phone: [phone] Patient Fasting: N us David Pruett MD LAB BLOOD ORDERABLES Final Resu lt [facility] (AMBULATORY) [address] [place] [address], [place] [phone] [facility] [address] [place] [address], [place] [phone] documented in this encounter Visit Diagnoses Diagnosis Leukocytosis, unspecified type- Primary documented in this encounter Additional Health Concerns Assessment Noted Time PHQ-2 Depression Total Score: 3 04/10/20 24 12:05 PM EDT documented as of this encounter Care Teams Rickshaw Driver Relationship Specialty Start Date End Date David Pruett MD [address] [place] [address] PCP - General Family Medicine 05/21/18 documented as of this encounter
--- OUTSIDE RECORDS SUMMARY | 2025-06-11 12:26 | XMS_ITS | Encounter Summary ---
Author Organization [facility] Address [address] [place] [address] Care Team Providers Care Patient Biller Name Role Phone David Pruett MD Primary Care Provider [phone] Encounter Details Date Type Department Care Team (Latest Contact Info) Description 04/18/2025 Travel Social History Tobacco Use Types Packs/Day [...] on file documented as of this encounter Functional Status documented as of this encounter Plan of Treatment Upcoming Encounters Date Type Department Care Team (Late st Contact Info) Description 07/10/2025 10:30 AM EST Office Visit [facility] CARDIOLOGY [address] [place] [address] Willard Reyes MD [address] [address] 10/20/2025 10:00 AM EST Office Visit [facility] FAMILY MEDICINE [address] [place] [address] David Pruett MD [address] [place] [address] documented as of this encounter Visit Diagnoses Not on filedocumented in this encounter Additional Health Concerns Assessment Noted Time PHQ-2 Depression Total Score: 3 04/10/20 24 12:05 PM EDT documented as of this encounter Care Teams Patient Biller Relationship Specialty Start Date End Date David Pruett MD [address] [place] [address] PCP - General Family Medicine 05/21/18 documented as of this encounter
--- OUTSIDE RECORDS SUMMARY | 2025-06-11 12:26 | XMS_ITS | Clinical Summary ---
Author Organization [facility] Address [address] [place] [address] Care Team Providers Care Information Technology Program Manager Name Role Phone Unavailable Primary Care Provider [...] SDOH Screening 08/28/2024 Influenza Vaccine (#1) 2025 RSV 50+ and (1 - 1 -dose 75+ series) 2033 Haemophilus Influenzae Type B (Hib) Vaccine Aged [...]
--- OUTSIDE RECORDS SUMMARY | 2025-06-11 12:26 | XMS_ITS | Encounter Summary ---
[facility] Address [address] [place] [address] Care Team Providers Care Construction Rigger Name Role Phone David Pruett MD Primary Care Provider [phone] Reason for Referral * Consultation (Routine) - Closed Specialty Diagnoses / Procedures Referred By Contac t Referred To Contact Neurosurgery Diagnoses Cervical disc disease with myelopathy David Pruett MD [address] [facility] [place] [address] Phone: tel: fax: [facility] NEUROSURGERY [address] [address] Phone: tel: fax: Referral ID Status Reason Start Date Expiration Date V isits Requested Visits Authorized [id number] Closed Specialty Services Required 11/07/2024 02/06/2026 1 1 Encounter Details Date Type Department Care Team (Late st Contact Info) Description 11/07/2024 Results Follow-Up [facility] FAMILY MEDICINE [address] [facility] [place] [address] David Pruett MD [address] [facility] [place] [address] Social History Tobacco Use Types [...] Description 07/10/2025 10:30 AM EST Office Visit [facility] CARDIOLOGY [address] [place] [address] Willard Reyes MD [facility] [place] [address] 10/20/2025 10:00 AM EST Office Visit [facility] FAMILY MEDICINE [address] [place] [address] David Pruett MD [address] [place] [address] documented as of this encounter Visit Diagnoses Diagnosis Cervical disc disease with myelopathy- Primary documented in this encounter Additional Health Concerns Assessment Noted Time PHQ-2 Depression Total Score: 3 04/10/20 24 12:05 PM EDT documented as of this encounter Care Teams Construction Rigger Relationship Specialty Start Date End Date David Pruett MD [address] [place], [place] [id number] PCP - General Family Medicine 05/21/18 documented as of this encounter
--- OUTSIDE RECORDS SUMMARY | 2025-06-11 12:26 | XMS_ITS | Encounter Summary ---
[facility] Address [address] [place] [address] Care Team Providers Care 911 Dispatcher Name Role Phone David Pruett MD Primary Care Provider [phone] Encounter Details Date Type Department Care Team (Late st Contact Info) Description 05/19/2025 External PB Data [facility] [address] [place] [address] [place] [address] Pharmacy, Payor Data Social History Tobacco Use Types Packs/Day Years [...] Description 07/10/2025 10:30 AM EST Office Visit [facility] CARDIOLOGY [address] [place] [address] Willard Reyes MD [address] [address] 10/20/2025 10:00 AM EST Office Visit [facility] FAMILY MEDICINE [address] [email or web address] [place] [address] David Pruett MD [address] [place] [address] documented as of this encounter Visit Diagnoses Not on filedocumented in this encounter Additional Health Concerns Assessment Noted Time PHQ-2 Depression Total Score: 3 04/10/20 24 12:05 PM EDT documented as of this encounter Care Teams 911 Dispatcher Relationship Specialty Start Date End Date David Pruett MD [address] [place] [address] PCP - General Family Medicine 05/21/18 documented as of this encounter
--- OUTSIDE RECORDS SUMMARY | 2025-06-11 12:26 | XMS_ITS | Encounter Summary ---
Author Organization [facility] Address [address] [place] [address] Care Team Providers Care Supervisor Drying And Winding Name Role Phone David Pruett MD Primary Care Provider [phone] Encounter Details Date Type Department Care Team (Latest Contact Info) Description 04/23/2025 Travel Social History Tobacco Use Types Packs/Day [...] Description 07/10/2025 10:30 AM EST Office Visit [facility] CARDIOLOGY [address] [place] [address] Willard Reyes MD [address] [address] 10/20/2025 10:00 AM EST Office Visit [facility] FAMILY MEDICINE [address] [place] [address] David Pruett MD [address] [place] [address] documented as of this encounter Visit Diagnoses Not on filedocumented in this encounter Additional Health Concerns Assessment Noted Time PHQ-2 Depression Total Score: 3 04/10/20 24 12:05 PM EDT documented as of this encounter Care Teams Supervisor Drying And Winding Relationship Specialty Start Date End Date David Pruett MD [address] [place] [address] PCP - General Family Medicine 05/21/18 documented as of this encounter
--- OUTSIDE RECORDS SUMMARY | 2025-06-11 12:26 | XMS_ITS | Encounter Summary ---
[facility] [address] [place] [address] Care Team Providers Care Control Systems Engineer Name Role Phone David Pruett MD Primary Care Provider [phone] Reason for Referral * MRI/CAT/PET Scan (Routine) - Closed Specialty Diagnoses / Procedures Referred By Contac t Referred To Contact Diagnoses Abnormal brain CT Procedures MRI Brain With & Without Contrast Hunter Browning PA-C [address] [place] [address] Phone: tel: fax: [facility] - OUTPT PHYSICAL THERAPY [address] [place] [address] [place] [address] Phone: tel: fax: Referral ID Status Reason Start Date Expiration Date Visits Re quested Visits Authorized Closed 02/19/2025 05/21/2026 1 1 Encounter Details Date Type Department Care Team (Late st Contact Info) Description 02/19/2025 Results Follow-Up [facility] FAMILY MEDICINE [address] [place] [address] Hunter Browning PA-C [address] [place] [address] Social History Tobacco Use Types [...] Description 07/10/2025 10:30 AM EST Office Visit [facility] CARDIOLOGY [address] [place] [address] Willard Reyes MD [address] [place] [address] 10/20/2025 10:00 AM EST Office Visit [facility] FAMILY MEDICINE [address] [place] [address] David Pruett MD [address] [place] [address] documented as of this encounter [...] documented as of this encounter Care Teams Control Systems Engineer Relationship Specialty Start Date End Date David Pruett MD [address] [place] [address] PCP - General Family Medicine 05/21/18 documented as of this encounter
[2025-06-11 12:49] LABS: Blood Urea Nitrogen 14 mg/dl (9-20); Creatinine,Serum 1.00 mg/dl (0.66-1.25); Estimated Glomerular Filt Rate 75 ml/min (>60); GFR (African American) 90 ML/MIN (>60)
[2025-06-11] MEDS: GADOTERIDOL INJ 20ML SYRINGE 17 ML IV (13:51)
== END 2025-06-11 23:59 | disposition home or self-care (01) ==
LOC: RAD 12:24
PROVIDERS: PCP Family Medicine; Visit Provider Psychiatry & Neurology Neurology
DX: R90.89 Other abnormal findings on diagnostic imaging of central nervous system (principal); R51.9 Headache, unspecified
CPT/HCPCS: 36415; 70553; 82565; 84520; A9576